=== PATIENT | male | born 1940 | race Caucasian/White ===

== ENCOUNTER 2017-09-03 15:49 | Inpatient (IN) | payer MEDICARE, OTHER ==
[2017-09-03] MEDS ORDERED: IPRATROPIUM-ALBUTEROL 3 ML NEB INHALATION PRN (19:20)
[2017-09-03] MEDS ORDERED: traMADol 50 MG TAB PO PRN (19:30)
[2017-09-03] MEDS ORDERED: DILTIAZEM CD 120 MG CAP.ER.24H PO SCH (20:00)
[2017-09-03] MEDS: IPRATROPIUM-ALBUTEROL 3 ML NEB INHALATION SCH (20:25)
[2017-09-03] MEDS: SYMBICORT 80-4.5 MCG INHALER INHALATION SCH (20:25)
[2017-09-03] MEDS: PIPERACILLIN-TAZOBACTAM 3.375 GM in DEXTROSE/WATER 1 50ML.BAG IVPB SCH (21:56)
[2017-09-03] MEDS: PROMACTA 75 MG PO SCH (21:57)
[2017-09-04] MEDS: PIPERACILLIN-TAZOBACTAM 3.375 GM in DEXTROSE/WATER 1 50ML.BAG IVPB SCH ×2 (04:15→11:57)
[2017-09-04] MEDS: SODIUM CHLORIDE 0.9% 1,000 ML IV SCH ×2 (04:16→07:34)
[2017-09-04 07:53] LABS: Calcium 9.1 mg/dL (8.4-10.2); Potassium 4.2 mmol/L (3.5-5.1)
[2017-09-04 07:57] LABS: Anisocytosis Slight; CH 29.9; CHCM 31.3; HCT 36.2 % (39.0-53.0); HDW 2.76; HGB 11.4 gm/dL (13.0-17.5); Hypochromasia Slight; Large Platelets Flag Slight; MCHC 31.4 g/dL (31.0-37.0); MCV 95.7 fL (80.0-100.0); Macrocytosis Slight; Mean Platelet Volume 10.2; RBC 3.78 m/uL (4.30-5.90); RDW 19.4 % (11.5-15.5); WBC 13.1 k/uL (3.8-10.6); WBC (Perox) 14.52
[2017-09-04 08:09] LABS: Add Differential Manual Differential
[2017-09-04 08:12] LABS: Large Platelets Present; Manual Review Performed; Nucleated Red Blood Cells 0 /100 WBC (0-0); Total Cells Counted 100
[2017-09-04] MEDS ORDERED: METOPROLOL SUCCINATE (ER) 50 MG TAB.ER.24H PO SCH (09:00)
[2017-09-04] MEDS ORDERED: PROMACTA 75 MG PO SCH (09:00)
[2017-09-04] MEDS ORDERED: TAMSULOSIN 0.4 MG CAP.ER.24H PO SCH (09:00)
[2017-09-04] MEDS: PROMACTA 75 MG PO SCH (09:01)
[2017-09-04 09:05] VITALS: BP 147/66; PULSE 54; RESP 16; TEMP 97.3
[2017-09-04] MEDS: IPRATROPIUM-ALBUTEROL 3 ML NEB INHALATION SCH ×3 (09:19→15:39)
[2017-09-04] MEDS: SYMBICORT 80-4.5 MCG INHALER INHALATION SCH (09:19)
[2017-09-04] MEDS ORDERED: ASPIRIN 81 MG PO SCH (10:30)
[2017-09-04] MEDS ORDERED: predniSONE 10 MG TAB PO SCH (10:30)
[2017-09-04] MEDS ORDERED: LORATADINE 10 MG TAB PO SCH (10:30)
[2017-09-04 11:19] VITALS: BMI 27.4
--- NOTE | 2017-09-04 11:20 | XR ---
EXAMINATION TYPE: XR chest 1V portable DATE OF EXAM: 09/04/2017 COMPARISON: 04/16/2015 INDICATION: Pneumonia or breath TECHNIQUE: Single frontal view of the chest is obtained. FINDINGS: The heart size is mildly prominent. There is some prominence of the superior mediastinum along the ri ght heart border. Consider additional workup with CT chest.. The pulmonary vasculature is normal. Vague opacities over the right lung base summation density. Mild infiltration be considered. Correlat e for atelectasis or pneumonia. Minimal right pleural effusion is not excluded. Old right rib fractures are evident. IMPRESSION: 1. Summation density versus mild infiltrate in the right mid lung. Correlate for pneumonia or atelect asis. 2. There is some prominence of mediastinum, follow-up chest CT for additional
--- NOTE | 2017-09-04 11:59 | P.GSCN ---
History of Present Illness Consult date: 09/04/17 History of present illness: This is a 77-year-old gentleman who was transferred to [facility] last night because of left-sided hydronephrosis, acute renal failure and flank pain. It was suspected that he had a ureteral stone however a computed tomography scan did not identify a stone but did identify the left- sided hydronephrosis and perinephric fluid. The creatinine 1.8. The patient does have a history of uric acid stones. He states that he passed a stone within the last couple days. He has had flank pain intermittently for the last couple days. The pain however subsided as he came down the [facility]. The patient is seen in the past for kidney stones. The patient did have blood in his urine. He is comfortable as we speak. The patient had a lot of irritative urinary symptoms during the abdominal pain. Once the common femoral and flank pain disappeared so did the irritative urinary symptoms. This is consistent with a stone in the intravesical tunnel that has passed. Review of Systems - Gastrointestinal Reports abdominal pain - Genitourinary Reports as per HPI 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 by crosscutter diverticulitis, ITP, ulcers in past,colitis,ddd,gout low back pain, kidney stones feb had taken out 2014 in [facility], [place] disease (liver count goes up and down) ( 03/31/15 fell broke ribs broke 2 toes and ended having pneumonia and was on life support in ICU) chest tube about 3 years ago for bilateral pneumonia, cataract in one eye "not sure which one" History of Any Multi-Drug Resistant Organisms: None Reported Past Surgical History: Back Surgery, Cholecystectomy, Heart Catheterization, Orthopedic Surgery Additional Past Surgical History / Comment(s): cardiac ablation, , heart catheterization 2011, cholecystectomy, cystoscopy with J stent placement.rotator cuff, neck surgery, lithotripsy,colonoscopy, Past Anesthesia/Blood Transfusion Reactions: No Reported Reaction Additional Past Anesthesia/Blood Transfusion Reaction / Comm: clausterphobic. pt stated has recieved platelets in past. Smoking Status: Former smoker - Past Family History Mother Family Medical History: CVA/TIA Father Family Medical History: Coronary Artery Disease (CAD), Myocardial Infarction ([place] ) Brother(s) Family Medical History: CVA/TIA Sister(s) Family Medical History: No Reported History Daughter(s) Family Medical History: No Reported History Son(s) Family Medical History: No Reported History Medications and Allergies Home Medications Medication Instructions Recorded Confirmed Type Digoxin [Lanoxin] 125 mcg PO DAILY 03/23/15 09/03/17 History Loratadine [Claritin] 10 mg PO DAILY 03/23/15 09/03/17 History Metoprolol Succinate [Toprol XL] 50 mg PO DAILY 03/23/15 09/03/17 History Fluticasone/Salmeterol [Advair 1 inhalation PO RT-BID 04/16/15 09/03/17 History 250-50 Diskus] Apriso 1.5 mg PO DAILY 09/03/17 09/03/17 History Aspirin EC [Ecotrin Low Dose] 81 mg PO DAILY 09/03/17 09/03/17 History Diltiazem Cd [Cardizem Cd] 120 mg PO DAILY@2000 09/03/17 09/03/17 History Eltrombopag Olamine [Promacta] 75 mg PO DAILY 09/03/17 09/03/17 History Ferrous Sulfate [Feosol] 325 mg PO DAILY@1300 09/03/17 09/03/17 History [place]-3 Fatty Acids [[place]-3] 2,000 mg PO W/SUPPER 09/03/17 09/03/17 History Tamsulosin HCl [Flomax] 0.4 mg PO DAILY 09/03/17 09/03/17 History Urocit-K 1,080 mg PO BID 09/03/17 09/03/17 History Zinc 50 mg PO DAILY 09/03/17 09/03/17 History predniSONE 10 mg PO DAILY 09/03/17 09/03/17 History Allergies Allergy/AdvReac Type Severity Reaction Status Date / Time Iodinated Contrast- Oral and Allergy Unknown Verified 09/03/17 18:51 IV Dye [Iodinated Contrast Media - IV Dye] hydromorphone HCl AdvReac Hallucinati Verified 09/03/17 18:51 [From Dilaudid] ons morphine AdvReac Hallucinati Verified 09/03/17 18:51 ons Surgical - Exam Vital Signs Temp Pulse Resp BP Pulse Ox 97.8 F 74 17 143/54 98 09/03/17 22:10 09/03/17 22:10 09/03/17 22:10 09/03/17 22:10 09/03/17 22:10 - General well developed, well nourished, no distress - Eyes PERRL - ENT no hearing loss - Neck trachea midline - Abdomen Abdomen: soft, non tender - Neurologic normal coordination, normal sensation - Musculoskeletal normal posture - Psychiatric oriented to time, oriented to person, oriented to place, speech is normal, memory intact Results - Labs 09/04/17 07:07 09/04/17 07:07 Abnormal Lab Results - Last 24 Hours (Table) 09/04/17 09/04/17 Range/Units 07:07 07:07 WBC 13.1 H (3.8-10.6) k/uL RBC 3.78 L (4.30-5.90) m/uL Hgb 11.4 L (13.0-17.5) gm/dL Hct 36.2 L (39.0-53.0) % RDW 19.4 H (11.5-15.5) % Plt Count 134 L (150-450) k/uL Neutrophils # (Manual) 8.52 H (1.3-7.7) k/uL Monocytes # (Manual) 3.41 H (0-1.0) k/uL Chloride 111 H (98-107) mmol/L BUN 23 H (9-20) mg/dL Creatinine 1.81 H (0.66-1.25) mg/dL Diabetes panel 09/04/17 Range/Units 07:07 Sodium 144 (137-145) mmol/L Potassium 4.2 (3.5-5.1) mmol/L Chloride 111 H (98-107) mmol/L Carbon Dioxide 26 (22-30) mmol/L BUN 23 H (9-20) mg/dL Creatinine 1.81 H (0.66-1.25) mg/dL Glucose 84 (74-99) mg/dL Calcium 9.1 (8.4-10.2) mg/dL Calcium panel 09/04/17 Range/Units 07:07 Calcium 9.1 (8.4-10.2) mg/dL Pituitary panel 09/04/17 Range/Units 07:07 Sodium 144 (137-145) mmol/L Potassium 4.2 (3.5-5.1) mmol/L Chloride 111 H (98-107) mmol/L Carbon Dioxide 26 (22-30) mmol/L BUN 23 H (9-20) mg/dL Creatinine 1.81 H (0.66-1.25) mg/dL Glucose 84 (74-99) mg/dL Calcium 9.1 (8.4-10.2) mg/dL Adrenal panel 09/04/17 Range/Units 07:07 Sodium 144 (137-145) mmol/L Potassium 4.2 (3.5-5.1) mmol/L Chloride 111 H (98-107) mmol/L Carbon Dioxide 26 (22-30) mmol/L BUN 23 H (9-20) mg/dL Creatinine 1.81 H (0.66-1.25) mg/dL Glucose 84 (74-99) mg/dL Calcium 9.1 (8.4-10.2) mg/dL Assessment and Plan Assessment: Impression: Left-sided hydroureteronephrosis. Acute renal failure due to the obstruction. Her sternal history of uric acid stones. Final Samina evaluated and cared for by crosscutter and [place]. Probable passage of left ureteral stone Recommendations: Given the fact that the patient has had a history of previous stones, he presented to the emergency room with severe flank and abdominal pain , hematuria and irritative urinary symptoms it is my impression that he passed a ureteral stone. A low the computed tomography scan did not identify the stone most likely he passed before the computed tomography scan was done. The perinephric edema is quite common with an obstruction and really carries no significance at this point in time. The creatinine 1.8 is just a sign evident obstruction and should resolve. Given that he feels perfectly well at this point in time I have no need to keep him in the hospital. He probably should have a follow-up urinalysis and creatinine and make sure the obstruction doesn' t persist. If the creatinine remain elevated then he probably need further evaluation by for other causes of obstruction however most likely this won't be the case. He has been instructed to contact Dr. Javed next week.
[2017-09-04] MEDS ORDERED: FERROUS SULFATE 325 MG TAB PO SCH (13:00)
--- NOTE | 2017-09-04 18:22 | HP ---
HISTORY AND PHYSICAL HISTORY AND PHYSICAL AND DISCHARGE SUMMARY: CHIEF COMPLAINT: Abdominal pain. HISTORY OF PRESENT ILLNESS: This 77-year-old gentleman with a past medical history of multiple medical problems including atrial ablation, COPD, GERD, history of DJD being followed by [facility] in the outpatient setting was admitted with complaints of abdominal pain, lower abdominal pain, referred from [facility]. The patient was found to have hydronephrosis. Patient also had renal failure. Patient was treated empirically with antibiotics. There is no history of fever, rigors. No headache , loss of consciousness or seizures. PAST MEDICAL HISTORY: Atrial fibrillation, history of COPD, GERD, history of DJD, history pneumonia. MEDICATIONS: Prior to admission include home medications: 1. Zinc 50 mg p.o. daily. 2. Sula-3 fatty acid 2000 daily. 3. Flomax 0.4 daily. 4. Iron sulfate 65 mg p.o. daily. 5. Ecotrin 81 mg. 6. 75 mg p.o. daily. 7. Cardizem CD 120 mg p.o. daily. 8. Prednisone 10 mg p.o. daily. 9. Urocit-K 1080 mg p.o. b.i.d. 10.Apriso 1.5 mg p.o. daily. 11.Toprol-XL 50 mg p.o. daily. 12.Claritin 10 mg p.o. daily. 13.Advair 250/50 1 puff b.i.d. 14.Lanoxin 120 mcg p.o. daily. 15.Augmentin 875 mg p.o. b.i.d. ALLERGIES: IODINATED CONTRAST, HYDROMORPHONE AND MORPHINE. FAMILY HISTORY: History of CVA, TIA in the family. SOCIAL HISTORY: No history of current smoking or alcohol intake. Previous history of smoker. REVIEW OF SYSTEMS: ENT: No diminished hearing or vision. CARDIOVASCULAR: No angina. RESPIRATORY: No cough. GI: As mentioned : As mentioned NERVOUS SYSTEM: No asthma or hayfever. ALLERGY/IMMUNOLOGY: No asthma or hayfever. MUSCULOSKELETAL: As mentioned. HEMATOLOGY: No history of anemia. ENDOCRINE: No history of diabetes or hypothyroidism. CONSTITUTIONAL: As mentioned earlier. DERMATOLOGY: Negative. RHEUMATOLOGY: Negative. PSYCHIATRY: As mentioned earlier. PHYSICAL EXAM: Patient is alert, oriented x3. The pulse is 54, blood pressure 147/66, respirations 16, temperature 97.2, pulse ox 98% on room air. HEENT: Conjunctivae normal. NECK: No jugular venous distention. CARDIOVASCULAR: S1, S2 muffled. RESPIRATORY: Breath sounds diminished in the bases. A few scattered rhonchi. No crackles. ABDOMEN: Soft. Mild diffuse discomfort on palpation. No guarding. No rigidity. No mass palpable. LEGS: No edema, no swelling. NERVOUS SYSTEM: Higher functions as mentioned earlier. Moves all four limbs. No focal deficits. LYMPHATICS: No lymphadenopathy in the neck, axillae, or groin. SKIN: No ulcer, rash, bleeding. LAB: WBC 13.1, hemoglobin 11.4. Creatinine is 1.81. ASSESSMENT: 1. Acute left side abdominal pain, possible hydronephrosis secondary to ureterolithiasis and kidney stone. 2. Increased WBC. 3. Possible acute urinary tract infection. 4. Increased creatinine with chronic kidney disease stage 3. 5. Chronic obstructive pulmonary disease. 6. Gastroesophageal reflux disease. 7. Degenerative joint disease. 8. History pneumonia. 9. History of ITP. 10.Splenomegaly. 11.History of gout. RECOMMENDATION AND DISCUSSION: This 77-year-old gentleman who presented with multiple complex medical issues, will monitor the patient closely continue the current medications, symptomatic treatment. Neurology has also seen the patient, recommended the patient to be discharged and follow up in the outpatient setting. Otherwise I would recommend resume the home medication as well as Augmentin 875 mg p.o. b.i.d. for 4 days and continue follow up with multiple consultants. Otherwise repeat labs with the primary physician. Discussed with the patient who understands. MMODL / IJN: [id number] / LIBRA
== END 2017-09-04 15:35 | disposition home or self-care (01) | DRG 694 ==
LOC: 5MS5E 17:59
PROVIDERS: ADMIT Internal Medicine; ATTEND Internal Medicine
DX: N13.2 Hydronephrosis with renal and ureteral calculous obstruction (principal); D69.3 Immune thrombocytopenic purpura; N17.9 Acute kidney failure, unspecified; I48.91 Unspecified atrial fibrillation; J44.9 Chronic obstructive pulmonary disease, unspecified; N18.3 Chronic kidney disease, stage 3 (moderate); R16.1 Splenomegaly, not elsewhere classified; N39.0 Urinary tract infection, site not specified; G47.30 Sleep apnea, unspecified; K21.9 Gastro-esophageal reflux disease without esophagitis; M10.9 Gout, unspecified; M19.90 Unspecified osteoarthritis, unspecified site; E80.4 Gilbert syndrome; H26.9 Unspecified cataract; R31.9 Hematuria, unspecified; K57.90 Diverticulosis of intestine, part unspecified, without perforation or abscess without bleeding; D72.829 Elevated white blood cell count, unspecified; Z87.442 Personal history of urinary calculi; Z87.891 Personal history of nicotine dependence; Z79.82 Long term (current) use of aspirin; Z79.52 Long term (current) use of systemic steroids; Z79.899 Other long term (current) drug therapy; Z88.5 Allergy status to narcotic agent; Z91.041 Radiographic dye allergy status; Z82.49 Family history of ischemic heart disease and other diseases of the circulatory system
CPT/HCPCS: 71010; 80048; 80162; 85025

== ENCOUNTER 2018-06-14 13:39 | Inpatient (IN) | payer MEDICARE, OTHER ==
[2018-06-14 14:22] LABS: Appearance,Urine Cloudy (Clear); Bilirubin,Urine Negative (Negative); Blood,Urine Negative (Negative); Color,Urine Light Yellow; Glucose,Urine (UA) Negative (Negative); Ketones,Urine Negative (Negative); Leukocyte Esterase,Urine Negative (Negative); Mucus,Urine Rare /hpf; Nitrite,Urine Negative (Negative); Protein,Urine Negative (Negative); Specific Gravity,Urine 1.006 (1.001-1.035); Urobilinogen,Urine <2.0 mg/dL (<2.0); WBC,Urine 3 /hpf (0-5)
[2018-06-14 14:26] LABS: Albumin 3.4 g/dL (3.5-5.0); Calcium 8.6 mg/dL (8.4-10.2); INR 1.3 (<1.2); Magnesium 1.9 mg/dL (1.6-2.3); Partial Thromboplastin Time 23.8 sec (22.0-30.0); Potassium 5.6 mmol/L (3.5-5.1); Prothrombin Time 12.2 sec (9.0-12.0); Total Bilirubin 2.2 mg/dL (0.2-1.3); Total Protein 6.8 g/dL (6.3-8.2)
[2018-06-14 14:32] LABS: Anisocytosis Moderate; HCT 27.1 % (39.0-53.0); HGB 8.7 gm/dL (13.0-17.5); Hypochromasia Slight; MCHC 32.2 g/dL (31.0-37.0); MCV 90.3 fL (80.0-100.0); Mean Platelet Volume 15.2; RDW 21.1 % (11.5-15.5); WBC 7.7 k/uL (3.8-10.6)
[2018-06-14 15:04] LABS: Band Neutrophils % 2 %; Large Platelets Present; Lymphocytes # (M) 1.69 k/uL (1.0-4.8); Monocytes # (M) 0.54 k/uL (0-1.0); Neutrophils % (M) 69 %; Nucleated Red Blood Cells 0 /100 WBC (0-0); Platelet Count 52 k/uL (150-450); Poikilocytosis (M) Present; Total Cells Counted 100
[2018-06-14 15:07] LABS: Creatine Kinase <20 U/L (55-170)
--- NOTE | 2018-06-14 15:12 | ED ---
General Adult HPI - General Chief complaint: Arrhythmia/Palpitations Stated complaint: abn heart rate Time Seen by Provider: 06/14/18 13:43 Source: patient, EMS, RN notes reviewed Mode of arrival: EMS Limitations: no limitations - History of Present Illness Initial comments: 78-year-old male transferred with multiple medical problems. Patient has history of A. fib, he was found to be in A. fib with RVR, he had recent hospitalization with pneumonia and was transferred with some residual bilateral infiltrate. Patient was found on computed tomography scan to have an obstructing right renal calculus. This was the patient's initial complaint for which he was seeking medical advice at outside hospital. No fever or chills. No abdominal pain. He is pain-free at the time my evaluation. No chest pain. No dyspnea. No flank pain. - Related Data Home Medications Medication Instructions Recorded Confirmed Loratadine [Claritin] 10 mg PO DAILY 03/23/15 06/14/18 Metoprolol Succinate [Toprol XL] 50 mg PO DAILY 03/23/15 06/14/18 Fluticasone/Salmeterol [Advair 1 puff INHALATION RT-BID 04/16/15 06/14/18 250-50 Diskus] Aspirin EC [Ecotrin Low Dose] 81 mg PO DAILY 09/03/17 06/14/18 Eltrombopag Olamine [Promacta] 75 mg PO DAILY 09/03/17 06/14/18 Tamsulosin HCl [Flomax] 0.4 mg PO DAILY 09/03/17 06/14/18 Apriso 375 Mg 24hr Cap 1,500 mg PO HS 06/14/18 06/14/18 Bidil 20-37.5mg 1 tab PO TID 06/14/18 06/14/18 Furosemide [Lasix] 20 mg PO DAILY 06/14/18 06/14/18 Ipratropium-Albuterol Nebulize 3 ml INHALATION RT-QID 06/14/18 06/14/18 [Duoneb 0.5 mg-3 mg/3 ml Soln] Multivitamins, Thera [Multivitamin 1 tab PO DAILY 06/14/18 06/14/18 (formulary)] [place]-3 Acid Ethyl Esters [Lovaza] 1 gm PO DAILY 06/14/18 06/14/18 Pantoprazole Sodium [Protonix] 40 mg PO DAILY 06/14/18 06/14/18 Potassium Chloride ER [K-Dur 20] 20 meq PO DAILY 06/14/18 06/14/18 Allergies Allergy/AdvReac Type Severity Reaction Status Date / Time acetaminophen Allergy Unknown Verified 06/14/18 14:44 [From Darvocet-N] codeine Allergy Unknown Verified 06/14/18 14:44 ibuprofen [From Motrin] Allergy Unknown Verified 06/14/18 14:44 Iodinated Contrast- Oral and Allergy Unknown Verified 06/14/18 14:44 IV Dye [Iodinated Contrast Media - IV Dye] propoxyphene Allergy Unknown Verified 06/14/18 14:44 [From Darvocet-N] hydromorphone HCl AdvReac Hallucinati Verified 06/14/18 14:44 [From Dilaudid] ons morphine AdvReac Hallucinati Verified 06/14/18 14:44 ons Review of Systems ROS Statement: Those systems with pertinent positive or pertinent negative responses have been documented in the HPI. ROS Other: All systems not noted in ROS Statement are negative. 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 by warranty clerk diverticulitis, ITP, ulcers in past,colitis,ddd,gout low back pain, kidney stones feb had taken out 2014 in [facility], [place] (liver count goes up and down) ( 03/31/15 fell broke ribs broke 2 toes and ended having pneumonia and was on life support in ICU) chest tube about 3 years ago for bilateral pneumonia, cataract in one eye "not sure which one" History of Any Multi-Drug Resistant Organisms: None Reported Past Surgical History: Back Surgery, Cholecystectomy, Heart Catheterization, Orthopedic Surgery Additional Past Surgical History / Comment(s): cardiac ablation, , heart catheterization 2011, cholecystectomy, cystoscopy with J stent placement.rotator cuff, neck surgery, lithotripsy,colonoscopy, Past Anesthesia/Blood Transfusion Reactions: No Reported Reaction Additional Past Anesthesia/Blood Transfusion Reaction / Comment(s): clausterphobic. pt stated has recieved platelets in past. Past Psychological History: Anxiety Smoking Status: Former smoker Past Alcohol Use History: None Reported Past Drug Use History: None Reported - Past Family History Mother Family Medical History: CVA/TIA Father Family Medical History: Coronary Artery Disease (CAD), Myocardial Infarction ([place] ) Brother(s) Family Medical History: CVA/TIA Sister(s) Family Medical History: No Reported History Daughter(s) Family Medical History: No Reported History Son(s) Family Medical History: No Reported History General Exam Limitations: no limitations General appearance: alert, in no apparent distress Head exam: Present: atraumatic, normocephalic Eye exam: Present: normal appearance, PERRL ENT exam: Present: normal exam Neck exam: Present: normal inspection. Absent: tenderness, meningismus Respiratory exam: Present: normal lung sounds bilaterally. Absent: respiratory distress Cardiovascular Exam: Present: regular rate, irregular rhythm GI/Abdominal exam: Present: soft. Absent: distended, tenderness, guarding Extremities exam: Present: normal inspection, pedal edema. Absent: normal capillary refill Back exam: Absent: CVA tenderness (R), CVA tenderness (L), muscle spasm Neurological exam: Present: alert, oriented X3, CN II-XII intact. Absent: motor sensory deficit Psychiatric exam: Present: normal affect, normal mood Skin exam: Present: warm, dry, intact. Absent: cyanosis, diaphoretic Course Vital Signs 06/14/18 06/14/18 13:51 15:11 Temperature 97.6 F Pulse Rate 117 H 91 Respiratory 18 18 Rate Blood Pressure 101/64 98/53 O2 Sat by Pulse 97 96 Oximetry - Reevaluation(s) Reevaluation #1: 06/14/18 15:19 With regards to patient's obstructing right renal calculus, this finding is discussed with urology on-call, Dr. Dumont. EKG Findings - EKG Comments: EKG Findings:: EKG: Atrial fibrillation, left bundle branch block, rate of 98, QRS duration 132, QTC 480, no ST segment elevation, no old for comparison. Medical Decision Making - Medical Decision Making 78-year-old male transferred for further evaluation treatment, transfer reasons include A. fib with RVR, concern for bilateral infiltrate on computed tomography scan as well as obstructing right renal calculus and new acute on chronic renal failure. Patient's laboratory studies are repeated, he has normal white blood cell count , hemoglobin is 8.7. Creatinine 2.69 from baseline of 1.8. Mild hyperkalemia 5.6. Troponin is negative. CT reviewed from outside hospital does show 1 cm calculus at the right UPJ, with hydronephrosis. Patient does have bilateral pleural effusion and infiltrate on the CT as well. Denies any cough or significant dyspnea. He will be admitted with cardiology and urology on consult. - Lab Data Result diagrams: 06/14/18 14:06 06/14/18 14:06 Lab Results 06/14/18 06/14/18 06/14/18 Range/Units 14:06 14:06 14:06 WBC 7.7 (3.8-10.6) k/uL RBC 3.00 L (4.30-5.90) m/uL Hgb 8.7 L (13.0-17.5) gm/dL Hct 27.1 L (39.0-53.0) % MCV 90.3 (80.0-100.0) fL MCH 29.0 (25.0-35.0) pg MCHC 32.2 (31.0-37.0) g/dL RDW 21.1 H (11.5-15.5) % Plt Count 52 L (150-450) k/uL Neutrophils % (Manual) 69 % Band Neutrophils % 2 % Lymphocytes % (Manual) 22 % Monocytes % (Manual) 7 % Neutrophils # (Manual) 5.40 (1.3-7.7) k/uL Lymphocytes # (Manual) 1.69 (1.0-4.8) k/uL Monocytes # (Manual) 0.54 (0-1.0) k/uL Nucleated RBCs 0 (0-0) /100 WBC Manual Slide Review Performed Large Platelets Present Hypochromasia Slight Poikilocytosis (manual Present Anisocytosis Moderate PT (9.0-12.0) sec INR (<1.2) APTT (22.0-30.0) sec Sodium 137 (137-145) mmol/L Potassium 5.6 H (3.5-5.1) mmol/L Chloride 106 (98-107) mmol/L Carbon Dioxide 19 L (22-30) mmol/L Anion Gap 12 mmol/L BUN 36 H (9-20) mg/dL Creatinine 2.69 H (0.66-1.25) mg/dL Est GFR (CKD-EPI)AfAm 25 (>60 ml/min/1.73 sqM) Est GFR (CKD-EPI)NonAf 22 (>60 ml/min/1.73 sqM) Glucose 86 (74-99) mg/dL Calcium 8.6 (8.4-10.2) mg/dL Magnesium 1.9 (1.6-2.3) mg/dL Total Bilirubin 2.2 H (0.2-1.3) mg/dL AST 16 L (17-59) U/L ALT 29 (21-72) U/L Alkaline Phosphatase 67 (38-126) U/L Total Creatine Kinase <20 L (55-170) U/L CK-MB (CK-2) 0.5 (0.0-2.4) ng/mL CK-MB (CK-2) Rel Index Troponin I <0.012 (0.000-0.034) ng/mL Total Protein 6.8 (6.3-8.2) g/dL Albumin 3.4 L (3.5-5.0) g/dL Urine Color Urine Appearance (Clear) Urine pH (5.0-8.0) Ur Specific [place] (1.001-1.035) Urine Protein (Negative) Urine Glucose (UA) (Negative) Urine Ketones (Negative) Urine Blood (Negative) Urine Nitrite (Negative) Urine Bilirubin (Negative) Urine Urobilinogen (<2.0) mg/dL Ur Leukocyte Esterase (Negative) Urine WBC (0-5) /hpf Urine Mucus (None) /hpf 06/14/18 06/14/18 Range/Units 14:06 14:06 WBC (3.8-10.6) k/uL RBC (4.30-5.90) m/uL Hgb (13.0-17.5) gm/dL Hct (39.0-53.0) % MCV (80.0-100.0) fL MCH (25.0-35.0) pg MCHC (31.0-37.0) g/dL RDW (11.5-15.5) % Plt Count (150-450) k/uL Neutrophils % (Manual) % Band Neutrophils % % Lymphocytes % (Manual) % Monocytes % (Manual) % Neutrophils # (Manual) (1.3-7.7) k/uL Lymphocytes # (Manual) (1.0-4.8) k/uL Monocytes # (Manual) (0-1.0) k/uL Nucleated RBCs (0-0) /100 WBC Manual Slide Review Large Platelets Hypochromasia Poikilocytosis (manual Anisocytosis PT 12.2 H (9.0-12.0) sec INR 1.3 H (<1.2) APTT 23.8 (22.0-30.0) sec Sodium (137-145) mmol/L Potassium (3.5-5.1) mmol/L Chloride (98-107) mmol/L Carbon Dioxide (22-30) mmol/L Anion Gap mmol/L BUN (9-20) mg/dL Creatinine (0.66-1.25) mg/dL Est GFR (CKD-EPI)AfAm (>60 ml/min/1.73 sqM) Est GFR (CKD-EPI)NonAf (>60 ml/min/1.73 sqM) Glucose (74-99) mg/dL Calcium (8.4-10.2) mg/dL Magnesium (1.6-2.3) mg/dL Total Bilirubin (0.2-1.3) mg/dL AST (17-59) U/L ALT (21-72) U/L Alkaline Phosphatase (38-126) U/L Total Creatine Kinase (55-170) U/L CK-MB (CK-2) (0.0-2.4) ng/mL CK-MB (CK-2) Rel Index Troponin I (0.000-0.034) ng/mL Total Protein (6.3-8.2) g/dL Albumin (3.5-5.0) g/dL Urine Color Light Yellow Urine Appearance Cloudy (Clear) Urine pH 5.0 (5.0-8.0) Ur Specific [place] 1.006 (1.001-1.035) Urine Protein Negative (Negative) Urine Glucose (UA) Negative (Negative) Urine Ketones Negative (Negative) Urine Blood Negative (Negative) Urine Nitrite Negative (Negative) Urine Bilirubin Negative (Negative) Urine Urobilinogen <2.0 (<2.0) mg/dL Ur Leukocyte Esterase Negative (Negative) Urine WBC 3 (0-5) /hpf Urine Mucus Rare H (None) /hpf Disposition Clinical Impression: Atrial fibrillation, Acute on chronic kidney failure, Renal calculus Disposition: ADMITTED IP TO THIS HOSP Condition: Stable Is patient prescribed a controlled substance at d/c from ED?: No Referrals: Niels Hackett MD [Primary Care Provider] - 1-2 days Decision to Admit Reason: Admit from EC Decision Date: 06/14/18 Decision Time: 15:25
[2018-06-14 15:21] LABS: Creatine Kinase MB 0.5 ng/mL (0.0-2.4); Troponin I <0.012 ng/mL (0.000-0.034)
[2018-06-14] MEDS ORDERED: NALOXONE 0.4 MG/ML 1 ML VIAL IV PRN (15:26)
[2018-06-14] MEDS ORDERED: HYDROmorphone 1 MG/ML 1 ML SYRINGE IVP PRN (15:26)
--- NOTE | 2018-06-14 16:52 | XR ---
EXAMINATION TYPE: XR chest 1V portable DATE OF EXAM: 06/14/2018 COMPARISON: 09/04/2017 INDICATION: CHF TECHNIQUE: Single frontal view of the chest is obtained. FINDINGS: The heart size is enlarged. The pulmonary vasculature is normal. There is a rounded 4.7 cm mass in the right midlung. This could be fluid within the minor fissure. Un derlying mass should be considered. Suspicious consolidations are not identified. Small pleural effu sions have developed. IMPRESSION: 1. 4.7 cm mass suspected within the right midlung. Fluid could be within the differential. CT of the chest with contrast recommended for additional evaluation. 2. Small bilateral pleural effusions.
[2018-06-14] MEDS ORDERED: SODIUM POLYSTYRENE SULFONATE 15 GM/60 ML BOTTLE PO ONE (17:00)
[2018-06-14] MEDS: hydrALAZINE HCL 25 MG TAB PO SCH ×2 (17:11→23:50)
[2018-06-14] MEDS: ISOSORBIDE DINITRATE 20 MG TAB PO SCH ×2 (17:12→23:50)
--- NOTE | 2018-06-14 17:13 | HP ---
HISTORY AND PHYSICAL DATE OF SERVICE: 06/14/2018. CHIEF COMPLAINTS: Palpitations and cardiac rhythm. HISTORY OF PRESENT ILLNESS: This 78-year-old gentleman with a past history of atrial ablation, COPD, GERD, history pneumonia, history of sleep apnea, history of ITP with splenomegaly, being followed by Dr. Hackett in the outpatient setting, was recently admitted to [facility] for several days with pneumonia. Currently the patient is complaining of shortness of breath. The patient came to [facility] and was admitted for further evaluation and treatment. The patient was found to have atrial fibrillation with fast ventricular rate. The patient also had bilateral infiltrates on x-ray also. There is no history of any fevers or rigors. No headache, loss of consciousness, seizures. The patient also had right-sided abdominal pain and 1 cm renal stone suspected elsewhere. PAST MEDICAL HISTORY: History of atrial ablation, COPD, GERD, liver disease, DJD, history of pneumonia , sleep apnea, history of ITP with splenomegaly. MEDICATIONS: Prior home medications are: 1. Lovaza 1 mg p.o. daily. 2. DuoNeb q.i.d. 3. Flomax 0.4 daily. 4. Protonix 40 mg p.o. daily. 5. Promacta 70 mg p.o. daily. 6. K-Dur 20 mEq b.i.d. 7. Multivitamins 1 p.o. daily. 8. Toprol-XL 50 mg p.o. daily. 11.Claritin 10 mg. 12.Lasix 20 mg. 13.Advair 250 one puff b.i.d. 14.Ecotrin 81 mg p.o. daily. ALLERGIES: TYLENOL, CODEINE, IBUPROFEN, IODINATED CONTRAST DYE, PROPOXYPHENE, HYDROMORPHONE , MORPHINE. FAMILY HISTORY: History of CVA and TIA. SOCIAL HISTORY: No history of smoking. No history of alcohol intake. REVIEW OF SYSTEMS: ENT: Diminished vision and hearing. CARDIOVASCULAR: As mentioned. RESPIRATORY: As mentioned. GI: No nausea or vomiting. : no dysuria, no hematuria. NERVOUS SYSTEMS: No numbness or weakness. ALLERGY: None. MUSCULOSKELETAL: As mentioned earlier. HEMATOLOGY/ONCOLOGY: As mentioned. ENDOCRINE: No history of diabetes or hypothyroidism. CONSTITUTIONAL: Negative. DERMATOLOGY: Negative. RHEUMATOLOGY: Negative. PSYCH: As mentioned earlier. PHYSICAL EXAMINATION: Pulse 91, blood pressure 98/50, respirations 18, temp 97.6, pulse ox 96 percent on 2 L. HEENT: Conjunctivae normal. Oral mucosa moist. NECK: No jugular venous distention. No carotid bruit. No lymph node enlargement. CARDIOVASCULAR: S1 and S2 regular, tachycardia. Ejection systolic murmur heard at the bases. LUNGS: Few scattered rhonchi and crackles. Expiratory wheezing also. ABDOMEN: Soft, obese, nontender. No mass. LEGS: Minimal edema. NERVOUS SYSTEM: Higher functions as mentioned earlier. Moves all four limbs. No focal motor deficits. LYMPHATICS: None. SKIN: No rash. LAB STUDIES: WBC 7.2, hemoglobin is 8.7. INR 1.2. Sodium 137, potassium 5.2. Creatinine is 2.69. ASSESSMENT: 1. Atrial fibrillation with fast ventricular rate. 2. Bibasilar infiltrate and bilateral pneumonia. 3. Acute renal failure, possibly prerenal failure. 4. Atrial fibrillation. 5. History of chronic obstructive pulmonary disease. 6. Gastroesophageal reflux disease. 7. History of chronic liver disease. 8. History of degenerative joint disease. 9. History of renal disease. 10.History of sleep apnea. 11.History ITP with splenomegaly. 12.History of colitis in the past. 13.History of renal stones. 14.History of back surgery and degenerative joint disease. 15.History of anxiety history. 16.History of nicotine dependence. 17.FULL CODE. RECOMMENDATIONS: This 78-year-old gentleman who presented with multiple complex medical issues, we will monitor the patient closely, continue the current treatment. We will optimize bronchodilators. Cardiology and pulmonology consultations. Urology will also be consulted. Resume the rest of the medications. Guarded prognosis because of multiple complex medical issues. Further recommendations to follow. Gently hydrate the patient and monitor the creatinine closely. Also avoid nephrotoxic medication as well. Further recommendations to follow. Discussed with family at length. Also recommend PT/OT evaluation also and oncology social work to evaluate the home situation as well. MMODL / IJN: [id number] / MTDD
[2018-06-14] MEDS: SODIUM CHLORIDE 0.9% 1,000 ML IV SCH (17:49)
--- NOTE | 2018-06-14 18:07 | CT ---
EXAMINATION TYPE: CT chest wo con DATE OF EXAM: 06/14/2018 COMPARISON: None HISTORY: Abnormal cxr. Shortness of breath. CT DLP: 531 mGycm. Automated Exposure Control for Dose Reduction was Utilized. TECHNIQUE: CT scan of the thorax is performed without IV contrast. FINDINGS: There are bilateral [id number] pleural effusions. Heart is enlarged. There is infiltrate and at electasis at the lung bases. There are multiple enlarged mediastinal lymph nodes that measure up to 2 cm. There is atherosclerotic vascular calcification. There is no evidence of thoracic aortic aneurys m. There is hypertrophic spurring in the thoracic spine. There are numerous thoracic compression frac tures. There is multilevel thoracic and lumbar vertebroplasty. IMPRESSION: Pleural effusions with basilar pulmonary infiltrates and atelectasis. No evidence of a pu lmonary mass. There is loculated fluid in the right minor fissure that accounts for density in the ri ght midlung on the chest x-ray today. Mediastinal adenopathy. Cardiomegaly. The upper abdomen images show splenomegaly. Spleen measures 21 cm and possibility of lymphoma should be considered.
[2018-06-14] MEDS: MELATONIN 3 MG TABLET PO SCH (20:02)
[2018-06-14] MEDS: HEPARIN SODIUM,PORCINE 5,000 UNIT/ML 1 ML VIAL SQ SCH (20:03)
[2018-06-14] MEDS: BALSALAZIDE DISODIUM 750 MG CAPSULE PO SCH (20:04)
[2018-06-14] MEDS: IPRATROPIUM-ALBUTEROL 3 ML NEB INHALATION SCH (20:44)
[2018-06-14] MEDS: SYMBICORT 80-4.5 MCG INHALER INHALATION SCH (20:44)
[2018-06-15] MEDS: PANTOPRAZOLE 40 MG TABLET PO SCH (06:12)
[2018-06-15] MEDS: SODIUM CHLORIDE 0.9% 1,000 ML IV SCH ×2 (06:13→20:56)
[2018-06-15 06:21] LABS: Anisocytosis Moderate; HCT 24.3 % (39.0-53.0); HGB 7.9 gm/dL (13.0-17.5); Hypochromasia Moderate; MCHC 32.3 g/dL (31.0-37.0); MCV 92.7 fL (80.0-100.0); Macrocytosis Slight; Mean Platelet Volume 15.4; RBC 2.62 m/uL (4.30-5.90); RDW 20.7 % (11.5-15.5); WBC 7.1 k/uL (3.8-10.6)
[2018-06-15 06:27] LABS: Calcium 8.3 mg/dL (8.4-10.2); Potassium 5.4 mmol/L (3.5-5.1)
[2018-06-15 06:48] LABS: Platelet Count 46 k/uL (150-450)
--- NOTE | 2018-06-15 07:14 | P.GSCN ---
History of Present Illness Consult date: 06/15/18 History of present illness: 78 yo male in [facility] because of afib. He originally went to [facility] with flank pain . He has a history of stones and thought he had a stone AN apparent ct scan ther showed a right 1 cm upj stone He is not symptomatic at this time His cr is 2.6 where baseline is 1.8 He is not infected He is on a baby asa Review of Systems - Cardiovascular Reports irregular heart beat - Genitourinary Reports as per HPI Past Medical History Past Medical History: Atrial Fibrillation, Blood Disorder, Heart Failure, COPD, GERD/Reflux, Liver Disease, Osteoarthritis (OA), Pneumonia, Renal Disease, Sleep Apnea/CPAP/BIPAP Additional Past Medical History / Comment(s): idiopathic thrombocytepenia w/ splenomegaly,low plaelets monitored by outside food server diverticulitis, ITP, ulcers in past,colitis,ddd,gout low back pain, kidney stones feb had taken out 2014 in [facility], emden disease (liver count goes up and down) ( 03/31/15 fell broke ribs broke 2 toes and ended having pneumonia and was on life support in ICU) chest tube about 3 years ago for bilateral pneumonia, cataract in one eye "not sure which one" History of Any Multi-Drug Resistant Organisms: None Reported Past Surgical History: Back Surgery, Cholecystectomy, Heart Catheterization, Orthopedic Surgery Additional Past Surgical History / Comment(s): cardiac ablation, , heart catheterization 2011, cholecystectomy, cystoscopy with J stent placement.rotator cuff, neck surgery, lithotripsy,colonoscopy,jim kidney stents. Past Anesthesia/Blood Transfusion Reactions: No Reported Reaction Additional Past Anesthesia/Blood Transfusion Reaction / Comm: clausterphobic. pt stated has recieved platelets in past. Past Psychological History: Anxiety Additional Psychological History / Comment(s): pt lives with in condo-has 1 step. pt uses a cane when out walking,besides cane has a cpap machine.. no home care services. Smoking Status: Former smoker Past Alcohol Use History: None Reported Additional Past Alcohol Use History / Comment(s): started smoking at age 17(1956 ) and quit 2011. smoked 1 ppd. past occ alcohol none now. denies any past or current drug use. Past Drug Use History: None Reported - Past Family History Mother Family Medical History: CVA/TIA Father Family Medical History: Coronary Artery Disease (CAD), Myocardial Infarction (PA ) Brother(s) Family Medical History: CVA/TIA Sister(s) Family Medical History: No Reported History Daughter(s) Family Medical History: No Reported History Son(s) Family Medical History: No Reported History Medications and Allergies Home Medications Medication Instructions Recorded Confirmed Type Loratadine [Claritin] 10 mg PO DAILY 03/23/15 06/14/18 History Metoprolol Succinate [Toprol XL] 50 mg PO DAILY 03/23/15 06/14/18 History Fluticasone/Salmeterol [Advair 1 puff INHALATION RT-BID 04/16/15 06/14/18 History 250-50 Diskus] Aspirin EC [Ecotrin Low Dose] 81 mg PO DAILY 09/03/17 06/14/18 History Eltrombopag Olamine [Promacta] 75 mg PO DAILY 09/03/17 06/14/18 History Tamsulosin HCl [Flomax] 0.4 mg PO DAILY 09/03/17 06/14/18 History Apriso 375 Mg 24hr Cap 1,500 mg PO HS 06/14/18 06/14/18 History Bidil 20-37.5mg 1 tab PO TID 06/14/18 06/14/18 History Furosemide [Lasix] 20 mg PO DAILY 06/14/18 06/14/18 History Ipratropium-Albuterol Nebulize 3 ml INHALATION RT-QID 06/14/18 06/14/18 History [Duoneb 0.5 mg-3 mg/3 ml Soln] Multivitamins, Thera [Multivitamin 1 tab PO DAILY 06/14/18 06/14/18 History (formulary)] Bunn-3 Acid Ethyl Esters [Lovaza] 1 gm PO DAILY 06/14/18 06/14/18 History Pantoprazole Sodium [Protonix] 40 mg PO DAILY 06/14/18 06/14/18 History Potassium Chloride ER [K-Dur 20] 20 meq PO DAILY 06/14/18 06/14/18 History Allergies Allergy/AdvReac Type Severity Reaction Status Date / Time acetaminophen Allergy Unknown Verified 06/14/18 14:44 [From Darvocet-N] codeine Allergy Unknown Verified 06/14/18 14:44 ibuprofen [From Motrin] Allergy Unknown Verified 06/14/18 14:44 Iodinated Contrast- Oral and Allergy Unknown Verified 06/14/18 14:44 IV Dye [Iodinated Contrast Media - IV Dye] propoxyphene Allergy Unknown Verified 06/14/18 14:44 [From Darvocet-N] hydromorphone HCl AdvReac Hallucinati Verified 06/14/18 14:44 [From Dilaudid] ons morphine AdvReac Hallucinati Verified 06/14/18 14:44 ons Surgical - Exam Vital Signs Temp Pulse Resp BP Pulse Ox 97.6 F 117 H 18 101/64 97 06/14/18 13:51 06/14/18 13:51 06/14/18 13:51 06/14/18 13:51 06/14/18 13:51 - General well developed, well nourished, no distress - Eyes PERRL - ENT no hearing loss - Neck trachea midline - Respiratory normal expansion, normal respiratory effort - Cardiovascular Rhythm: irregularly irregular - Abdomen Abdomen: soft, non tender - Genitourinary normal penis with no external lesions, testicles present - Integumentary no rash, no growths - Neurologic normal coordination, normal sensation - Musculoskeletal normal posture - Psychiatric oriented to time, oriented to person, oriented to place, speech is normal, memory intact Results - Labs 06/15/18 05:47 06/15/18 05:47 Abnormal Lab Results - Last 24 Hours (Table) 06/14/18 06/14/18 06/14/18 Range/Units 14:06 14:06 14:06 RBC 3.00 L (4.30-5.90) m/uL Hgb 8.7 L (13.0-17.5) gm/dL Hct 27.1 L (39.0-53.0) % RDW 21.1 H (11.5-15.5) % Plt Count 52 L (150-450) k/uL PT (9.0-12.0) sec INR (<1.2) Potassium 5.6 H (3.5-5.1) mmol/L Chloride (98-107) mmol/L Carbon Dioxide 19 L (22-30) mmol/L BUN 36 H (9-20) mg/dL Creatinine 2.69 H (0.66-1.25) mg/dL Calcium (8.4-10.2) mg/dL Total Bilirubin 2.2 H (0.2-1.3) mg/dL AST 16 L (17-59) U/L Total Creatine Kinase <20 L (55-170) U/L Albumin 3.4 L (3.5-5.0) g/dL Urine Mucus (None) /hpf 06/14/18 06/14/18 06/15/18 Range/Units 14:06 14:06 05:47 RBC 2.62 L (4.30-5.90) m/uL Hgb 7.9 L (13.0-17.5) gm/dL Hct 24.3 L (39.0-53.0) % RDW 20.7 H (11.5-15.5) % Plt Count 46 L* (150-450) k/uL PT 12.2 H (9.0-12.0) sec INR 1.3 H (<1.2) Potassium (3.5-5.1) mmol/L Chloride (98-107) mmol/L Carbon Dioxide (22-30) mmol/L BUN (9-20) mg/dL Creatinine (0.66-1.25) mg/dL Calcium (8.4-10.2) mg/dL Total Bilirubin (0.2-1.3) mg/dL AST (17-59) U/L Total Creatine Kinase (55-170) U/L Albumin (3.5-5.0) g/dL Urine Mucus Rare H (None) /hpf 06/15/18 Range/Units 05:47 RBC (4.30-5.90) m/uL Hgb (13.0-17.5) gm/dL Hct (39.0-53.0) % RDW (11.5-15.5) % Plt Count (150-450) k/uL PT (9.0-12.0) sec INR (<1.2) Potassium 5.4 H (3.5-5.1) mmol/L Chloride 108 H (98-107) mmol/L Carbon Dioxide 18 L (22-30) mmol/L BUN 38 H (9-20) mg/dL Creatinine 2.90 H (0.66-1.25) mg/dL Calcium 8.3 L (8.4-10.2) mg/dL Total Bilirubin (0.2-1.3) mg/dL AST (17-59) U/L Total Creatine Kinase (55-170) U/L Albumin (3.5-5.0) g/dL Urine Mucus (None) /hpf Diabetes panel 06/14/18 06/15/18 Range/Units 14:06 05:47 Sodium 137 139 (137-145) mmol/L Potassium 5.6 H 5.4 H (3.5-5.1) mmol/L Chloride 106 108 H (98-107) mmol/L Carbon Dioxide 19 L 18 L (22-30) mmol/L BUN 36 H 38 H (9-20) mg/dL Creatinine 2.69 H 2.90 H (0.66-1.25) mg/dL Glucose 86 92 (74-99) mg/dL Calcium 8.6 8.3 L (8.4-10.2) mg/dL AST 16 L (17-59) U/L ALT 29 (21-72) U/L Alkaline Phosphatase 67 (38-126) U/L Total Protein 6.8 (6.3-8.2) g/dL Albumin 3.4 L (3.5-5.0) g/dL Calcium panel 06/14/18 06/15/18 Range/Units 14:06 05:47 Calcium 8.6 8.3 L (8.4-10.2) mg/dL Albumin 3.4 L (3.5-5.0) g/dL Pituitary panel 06/14/18 06/15/18 Range/Units 14:06 05:47 Sodium 137 139 (137-145) mmol/L Potassium 5.6 H 5.4 H (3.5-5.1) mmol/L Chloride 106 108 H (98-107) mmol/L Carbon Dioxide 19 L 18 L (22-30) mmol/L BUN 36 H 38 H (9-20) mg/dL Creatinine 2.69 H 2.90 H (0.66-1.25) mg/dL Glucose 86 92 (74-99) mg/dL Calcium 8.6 8.3 L (8.4-10.2) mg/dL Adrenal panel 06/14/18 06/15/18 Range/Units 14:06 05:47 Sodium 137 139 (137-145) mmol/L Potassium 5.6 H 5.4 H (3.5-5.1) mmol/L Chloride 106 108 H (98-107) mmol/L Carbon Dioxide 19 L 18 L (22-30) mmol/L BUN 36 H 38 H (9-20) mg/dL Creatinine 2.69 H 2.90 H (0.66-1.25) mg/dL Glucose 86 92 (74-99) mg/dL Calcium 8.6 8.3 L (8.4-10.2) mg/dL Total Bilirubin 2.2 H (0.2-1.3) mg/dL AST 16 L (17-59) U/L ALT 29 (21-72) U/L Alkaline Phosphatase 67 (38-126) U/L Total Protein 6.8 (6.3-8.2) g/dL Albumin 3.4 L (3.5-5.0) g/dL - Imaging CT scan - chest: report reviewed, image reviewed Assessment and Plan Assessment: Impression: Right upj stone, 1cm by history. History of uric acid stones Multiple medical issues including afib elevating creatinine Recommendations: The patient will need some treatment for his stone Options include ESWl,ureteroscopy w stent and pcnl He has seen Dr Javed in the past and I will notify him of an admission
[2018-06-15 07:22] LABS: Eosinophils # (M) 0.07 k/uL (0-0.7); Lymphocytes # (M) 0.64 k/uL (1.0-4.8); Monocytes # (M) 1.49 k/uL (0-1.0); Neutrophils % (M) 69 %; Nucleated Red Blood Cells 0 /100 WBC (0-0); Total Cells Counted 100
[2018-06-15 07:23] LABS: Large Platelets Present
[2018-06-15] MEDS: SYMBICORT 80-4.5 MCG INHALER INHALATION SCH ×3 (07:55→20:12)
[2018-06-15] MEDS: IPRATROPIUM-ALBUTEROL 3 ML NEB INHALATION SCH ×4 (07:55→20:08)
[2018-06-15] MEDS: ELTROMBOPAG 75 MG PO SCH (08:37)
[2018-06-15] MEDS: LOVAZA 1 GM PO SCH (08:37)
[2018-06-15] MEDS: HEPARIN SODIUM,PORCINE 5,000 UNIT/ML 1 ML VIAL SQ SCH (08:37)
[2018-06-15] MEDS: BALSALAZIDE DISODIUM 750 MG CAPSULE PO SCH ×3 (08:39→20:51)
[2018-06-15] MEDS: METOPROLOL SUCCINATE (ER) 50 MG TAB.ER.24H PO SCH (08:40)
[2018-06-15] MEDS: MULTIVITAMINS, THERA 1 EACH TAB PO SCH (08:40)
[2018-06-15] MEDS: ISOSORBIDE DINITRATE 20 MG TAB PO SCH ×3 (08:40→20:51)
[2018-06-15] MEDS: hydrALAZINE HCL 25 MG TAB PO SCH ×3 (08:40→20:51)
[2018-06-15] MEDS: ASPIRIN 81 MG PO SCH (08:40)
[2018-06-15] MEDS: TAMSULOSIN 0.4 MG CAP.ER.24H PO SCH (08:41)
[2018-06-15] MEDS ORDERED: FUROSEMIDE 20 MG TAB PO SCH (09:00)
[2018-06-15] MEDS ORDERED: POTASSIUM CHLORIDE ER 20 MEQ TAB.ER PO SCH (09:00)
[2018-06-15 11:33] VITALS: BMI 28.7
--- NOTE | 2018-06-15 12:34 | P.CRDCN ---
History of Present Illness Consult date: 06/15/18 History of present illness: This is a 78-year-old gentleman with previous medical history significant for paroxysmal atrial fibrillation, hypertension, renal insufficiency stage III, history of significant alcohol use, ulcerative colitis , idiopathic thrombocytopenia, chronic low back pain with prior laminectomy and fusion, COPD, nicotine dependence, who apparently was some most recently in, and it hospital with pneumonia. He presented here to the hospital with symptoms of shortness of breath, patient was also having some right sided abdominal pain. Patient did have an echocardiogram with Doppler study performed here in 2014 which revealed a normal left ventricular systolic function. EKG on admission here showed atrial fibrillation with a moderately rapid ventricular response. Chest x-ray showed a 4.7 cm mass suspected within the right midlung. Small bilateral pleural effusions. CTA of the chest was performed which revealed pleural effusions with basilar pulmonary infiltrates and atelectasis. No evidence of pulmonary mass. There is a loculated fluid in the right minor fissure that accounts for density in the right midlung. Mediastinotomy adenopathy. Ochoa megaly. Upper abdomen images show splenomegaly, spleen measuring 27 cm, possibility of lymphoma should be considered. Patient was also seen by urology because of flank pain, patient does have history of kidney stones, a CT scan didn't reveal a 1 cm right sided stone. Blood pressure on arrival here 104/50, heart rate 110, 96% on 3 L of oxygen. I pressure this morning 96/50 with a heart rate in the 90s, 96% on 2 L of oxygen. White blood cell count 7.1, hemoglobin 7.9, platelet count 46. Sodium 139, potassium 5.4, BUN 38, creatinine 2.9, creatinine on admission 2.6. Patient said creatinine in August 1.8. Magnesium 1.9. Troponin 0.012. Digoxin level 0.6. BNP level was not obtained. At the time of my examination, patient is lying flat in bed, but does appear to be quite short of breath, he complains of bloating in the abdomen and swelling in his legs, not currently having any flank pain but states that earlier it was quite severe. 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 Past Anesthesia/Blood Transfusion Reactions: No Reported Reaction Additional Past Anesthesia/Blood Transfusion Reaction / Comment(s): clausterphobic. pt stated has recieved platelets in past. Past Psychological History: Anxiety Additional Psychological History / Comment(s): pt lives with in condo-has 1 step. pt uses a cane when out walking,besides cane has a cpap machine.. no home care services. Smoking Status: Former smoker Past Alcohol Use History: None Reported Additional Past Alcohol Use History / Comment(s): started smoking at age 17(1957 ) and quit 2011. smoked 1 ppd. past occ alcohol none now. denies any past or current drug use. Past Drug Use History: None Reported - Past Family History Mother Family Medical History: CVA/TIA Father Family Medical History: Coronary Artery Disease (CAD), Myocardial Infarction ([place] ) Brother(s) Family Medical History: CVA/TIA Sister(s) Family Medical History: No Reported History Daughter(s) Family Medical History: No Reported History Son(s) Family Medical History: No Reported History Medications and Allergies Home Medications Medication Instructions Recorded Confirmed Type Loratadine [Claritin] 10 mg PO DAILY 03/23/15 06/14/18 History Metoprolol Succinate [Toprol XL] 50 mg PO DAILY 03/23/15 06/14/18 History Fluticasone/Salmeterol [Advair 1 puff INHALATION RT-BID 04/16/15 06/14/18 History 250-50 Diskus] Aspirin EC [Ecotrin Low Dose] 81 mg PO DAILY 09/03/17 06/14/18 History Eltrombopag Olamine [Promacta] 75 mg PO DAILY 09/03/17 06/14/18 History Tamsulosin HCl [Flomax] 0.4 mg PO DAILY 09/03/17 06/14/18 History Apriso 375 Mg 24hr Cap 1,500 mg PO HS 06/14/18 06/14/18 History Bidil 20-37.5mg 1 tab PO TID 06/14/18 06/14/18 History Furosemide [Lasix] 20 mg PO DAILY 06/14/18 06/14/18 History Ipratropium-Albuterol Nebulize 3 ml INHALATION RT-QID 06/14/18 06/14/18 History [Duoneb 0.5 mg-3 mg/3 ml Soln] Multivitamins, Thera [Multivitamin 1 tab PO DAILY 06/14/18 06/14/18 History (formulary)] [place]-3 Acid Ethyl Esters [Lovaza] 1 gm PO DAILY 06/14/18 06/14/18 History Pantoprazole Sodium [Protonix] 40 mg PO DAILY 06/14/18 06/14/18 History Potassium Chloride ER [K-Dur 20] 20 meq PO DAILY 06/14/18 06/14/18 History Allergies Allergy/AdvReac Type Severity Reaction Status Date / Time acetaminophen Allergy Unknown Verified 06/14/18 14:44 [From Darvocet-N] codeine Allergy Unknown Verified 06/14/18 14:44 ibuprofen [From Motrin] Allergy Unknown Verified 06/14/18 14:44 Iodinated Contrast- Oral and Allergy Unknown Verified 06/14/18 14:44 IV Dye [Iodinated Contrast Media - IV Dye] propoxyphene Allergy Unknown Verified 06/14/18 14:44 [From Darvocet-N] hydromorphone HCl AdvReac Hallucinati Verified 06/14/18 14:44 [From Dilaudid] ons morphine AdvReac Hallucinati Verified 06/14/18 14:44 ons Physical Exam Vitals: Vital Signs Temp Pulse Pulse Resp BP BP BP 06/15/18 08:09 94 06/15/18 08:00 97.0 F L 110 H 20 104/62 06/15/18 07:55 94 06/15/18 04:00 97.6 F 95 18 110/66 06/15/18 00:00 97.7 F 111 H 19 104/56 06/14/18 20:00 97.0 F L 86 20 90/66 06/14/18 17:55 102 H 32 H 97/65 06/14/18 16:52 97.4 F L 94 32 H 105/70 06/14/18 16:14 97.8 F 96 18 105/65 06/14/18 15:11 91 18 98/53 06/14/18 13:51 97.6 F 117 H 18 101/64 Pulse Ox 06/15/18 08:09 06/15/18 08:00 95 06/15/18 07:55 06/15/18 04:00 97 06/15/18 00:00 96 06/14/18 20:00 94 L 06/14/18 17:55 95 06/14/18 16:52 95 06/14/18 16:14 96 06/14/18 15:11 96 06/14/18 13:51 97 Intake and Output 06/14/18 06/15/18 06/15/18 22:59 06:59 14:59 Intake Total 300 600 Output Total 50 200 Balance -50 100 600 Intake: Intake, IV Titration 300 600 Amount Sodium Chloride 0.9% 1, 300 600 000 ml @ 75 mls/hr IV . [id number] [facility] Rx#:[id number] Output: Urine 50 200 Other: Voiding Method Urinal Urinal Urinal Weight 83.2 kg PHYSICAL EXAMINATION: GENERAL: 78-year-old gentleman in no acute distress at the time of my examination. HEENT: Head is atraumatic, normocephalic. Pupils equal, round. Sclera anicteric. Conjunctiva are clear. Mucous membranes of the mouth are moist. Neck is supple. There is elevated jugular venous pressure. No carotid bruit is heard. HEART EXAMINATION: Heart S1, S2 normal. No murmur or gallop heard. CHEST EXAMINATION: Lungs reveal bilateral crackles with diminished air entry to the bases . No chest wall tenderness is noted on palpation or with deep breathing. ABDOMEN: Soft, mild generalized tenderness . Bowel sounds are heard. No organomegaly noted. EXTREMITIES: 1+ peripheral pulses with no evidence of peripheral edema and no calf tenderness noted. NEUROLOGIC patient is awake, alert and orientedX3. . Results 06/15/18 05:47 06/15/18 05:47 Cardiac Enzymes 06/14/18 06/14/18 Range/Units 14:06 14:06 AST 16 L (17-59) U/L CK-MB (CK-2) 0.5 (0.0-2.4) ng/mL Troponin I <0.012 (0.000-0.034) ng/mL Coagulation 06/14/18 Range/Units 14:06 PT 12.2 H (9.0-12.0) sec APTT 23.8 (22.0-30.0) sec CBC 06/14/18 06/15/18 Range/Units 14:06 05:47 WBC 7.7 7.1 (3.8-10.6) k/uL RBC 3.00 L 2.62 L (4.30-5.90) m/uL Hgb 8.7 L 7.9 L (13.0-17.5) gm/dL Hct 27.1 L 24.3 L (39.0-53.0) % Plt Count 52 L 46 L* (150-450) k/uL Comprehensive Metabolic Panel 06/14/18 06/15/18 Range/Units 14:06 05:47 Sodium 137 139 (137-145) mmol/L Potassium 5.6 H 5.4 H (3.5-5.1) mmol/L Chloride 106 108 H (98-107) mmol/L Carbon Dioxide 19 L 18 L (22-30) mmol/L BUN 36 H 38 H (9-20) mg/dL Creatinine 2.69 H 2.90 H (0.66-1.25) mg/dL Glucose 86 92 (74-99) mg/dL Calcium 8.6 8.3 L (8.4-10.2) mg/dL AST 16 L (17-59) U/L ALT 29 (21-72) U/L Alkaline Phosphatase 67 (38-126) U/L Total Protein 6.8 (6.3-8.2) g/dL Albumin 3.4 L (3.5-5.0) g/dL Current Medications Generic Name Dose Route Start Last Admin Trade Name Freq PRN Reason Stop Dose Admin Albuterol/Ipratropium 3 ml 06/14/18 20:00 06/15/18 07:55 Duoneb 0.5 Mg-3 Mg/3 Ml Soln INHALATION 3 ml RT-QID [facility] Administration Alprazolam 0.25 mg 06/14/18 16:22 Xanax PO TID PRN Anxiety Aspirin 81 mg 06/15/18 09:00 06/15/18 08:40 Aspirin PO 81 mg DAILY [facility] Administration Balsalazide 2,250 mg 06/14/18 22:00 06/15/18 08:39 Colazal PO 2,250 mg TID [facility] Administration Budesonide/Formoterol Fumarate 2 puff 06/14/18 20:00 06/15/18 08:10 Symbicort 80-4.5 Mcg Inhaler INHALATION Not Given RT-BID [facility] Heparin Sodium (Porcine) 5,000 unit 06/14/18 21:00 06/15/18 08:37 Heparin SQ Not Given Q12HR [facility] Hydralazine HCl 37.5 mg 06/14/18 16:00 06/15/18 08:40 Apresoline PO 37.5 mg TID [facility] Administration Hydromorphone HCl 0.5 mg 06/14/18 15:26 Dilaudid IVP Q3HR PRN Moderate Pain Sodium Chloride 1,000 mls @ 75 mls/hr 06/14/18 15:30 06/15/18 06:13 Saline 0.9% IV 75 mls/hr .[id number] [facility] Administration Isosorbide Dinitrate 20 mg 06/14/18 16:00 06/15/18 08:40 Isordil PO 20 mg TID [facility] Administration Melatonin 3 mg 06/14/18 21:00 06/14/18 20:02 Melatonin PO 3 mg HS [facility] Administration Metoprolol Succinate 50 mg 06/15/18 09:00 06/15/18 08:40 Toprol Xl PO 50 mg DAILY [facility] Administration Multivitamins 1 each 06/15/18 09:00 06/15/18 08:40 Theragran PO Not Given DAILY [facility] Naloxone HCl 0.2 mg 06/14/18 15:26 Narcan IV Q2M PRN Opioid Reversal Eltrombopag 75mg 75 mg 06/15/18 09:00 06/15/18 08:37 PO Not Given DAILY [facility] Lovaza 1 Gm 1 gm 06/15/18 09:00 06/15/18 08:37 PO Not Given DAILY [facility] Pantoprazole Sodium 40 mg 06/15/18 07:30 06/15/18 06:12 Protonix PO 40 mg [id number] [facility] Administration Tamsulosin HCl 0.4 mg 06/15/18 09:00 06/15/18 08:41 Flomax PO 0.4 mg DAILY [facility] Administration Intake and Output 06/14/18 06/15/18 06/15/18 22:59 06:59 14:59 Intake Total 300 600 Output Total 50 200 Balance -50 100 600 Intake: Intake, IV Titration 300 600 Amount Sodium Chloride 0.9% 1, 300 600 000 ml @ 75 mls/hr IV . [id number] [facility] Rx#:[id number] Output: Urine 50 200 Other: Voiding Method Urinal Urinal Urinal Weight 83.2 kg 06/15/18 05:47 06/15/18 05:47 EKG Interpretations (text) EKG shows atrial fibrillation with left bundle branch block pattern, moderately rapid ventricular response. Assessment and Plan Plan: Assessment and plan #1 symptoms of progressively worsening shortness of breath, bibasal infiltrates noted on x-ray, possible pneumonia, possible CHF exacerbation, LV function unknown. Most recent echo showed a normal left ventricular systolic function in 2016. #2 atrial fibrillation with moderately rapid ventricular response, patient not a candidate for anticoagulation because of ITP #3 acute on chronic renal failure #4 history of paroxysmal atrial fibrillation #5 COPD #6 chronic liver disease #7 sleep apnea #8 ITP was splenomegaly #9 hypertension #10 right-sided flank pain with evidence of renal stone #11 nicotine dependence Plan We will obtain a BNP level, repeat echocardiogram with Doppler study. We will give 24 hours of IV Lasix. Check lytes BUN creatinine intake and output and daily weights in the morning. Discontinue IV fluids. DNP note has been reviewed, I agree with a documented findings and plan of care. Patient was seen and examined.
--- NOTE | 2018-06-15 12:35 | P.CNPUL ---
History of Present Illness Consult date: 06/15/18 Chief complaint: Pneumonia, bilateral pleural effusion History of present illness: 78-year-old male patient got transferred from [facility] because of A. fib RVR and left flank pain. The patient has an extensive history. [id number] [place] [facility] respiratory failure. He had to be intubated and placed on a mechanical ventilator. During the course of the treatment the patient was also found to have nephrolithiasis and bilateral kidney stones with hydronephrosis. He underwent a urologic evaluation where he underwent a double-J stent insertion bilaterally. The stents were Then and ultimately there were removed on outpatient basis at the later stage. On today's evaluation, the patient is in the hospital because of some discomfort along his right flank area. No hematuria. No fever or chills. He has had some worsening shortness of breath and he was found to be in atrial fibrillation with rapid ventricular response. His known to have chronic A. fib and he is on no anticoagulants based on his previous history of ITP. His platelet counts are in the low 50s. No altered mentation. No nausea. No vomiting. No abdominal pain. No headaches. He was seen by urology. A follow- up CAT scan of the chest was done on 06/14/2018 here in our hospital and it showed bilateral pleural effusion that were somewhat loculated. No evidence of any lung masses or tumors. There is some loculated fluid within the minor fissure on the right side and this is located in the right midlung. Some nonspecific enlarged mediastinal lymphadenopathy measuring up to 2 cm in size. The upper abdominal images showing splenomegaly. I also reviewed the CAT scan of the chest abdomen and pelvis that was done and [facility] 24 hours ago and it showed similar findings in the lungs. There patient was found to have a calculus in the right UPJ with evidence of hydronephrosis. His renal function is worse compared to his baseline and is currently having diminished urine output. Creatinine today's at 2.9. Review of Systems Constitutional: Reports fatigue, Reports poor appetite, Reports weakness Eyes: denies blurred vision, denies bulging eye, denies decreased vision Ears: deny: decreased hearing, ear discharge, earache, tinnitus Ears, nose, mouth and throat: Denies headache, Denies sore throat Cardiovascular: Reports decreased exercise tolerance Respiratory: Reports dyspnea, Reports sleep apnea Gastrointestinal: Denies abdominal pain, Denies diarrhea, Denies nausea, Denies vomiting Genitourinary: Reports flank pain, Reports kidney stones Musculoskeletal: Denies myalgias Musculoskeletal: absent: ankle pain, ankle stiffness, ankle swelling Integumentary: Denies pruritus, Denies rash Neurological: Reports weakness, Denies numbness Endocrine: Reports fatigue Hematologic/Lymphatic: Reports as per HPI Allergic/Immunologic: Reports as per HPI Past Medical History Past Medical History: Atrial Fibrillation, Blood Disorder, Heart Failure, COPD, GERD/Reflux, Liver Disease, Osteoarthritis (OA), Pneumonia, Renal Disease, Sleep Apnea/CPAP/BIPAP Additional Past Medical History / Comment(s): idiopathic thrombocytepenia w/ splenomegaly,low plaelets monitored by mold sander diverticulitis, ITP, ulcers in past,colitis,ddd,gout low back pain, kidney stones feb had taken out 2014 in [facility], [place] [place] (liver count goes up and down) ( 03/31/15 fell broke ribs broke 2 toes and ended having pneumonia and was on life support in ICU) chest tube about 3 years ago for bilateral pneumonia, cataract in one eye "not sure which one" History of Any Multi-Drug Resistant Organisms: None Reported Past Surgical History: Back Surgery, Cholecystectomy, Heart Catheterization, Orthopedic Surgery Additional Past Surgical History / Comment(s): cardiac ablation, , heart catheterization 2011, cholecystectomy, cystoscopy with J stent placement.rotator cuff, neck surgery, lithotripsy,colonoscopy,jim kidney stents. Past Anesthesia/Blood Transfusion Reactions: No Reported Reaction Additional Past Anesthesia/Blood Transfusion Reaction / Comment(s): clausterphobic. pt stated has recieved platelets in past. Past Psychological History: Anxiety Additional Psychological History / Comment(s): pt lives with in condo-has 1 step. pt uses a cane when out walking,besides cane has a cpap machine.. no home care services. Smoking Status: Former smoker Past Alcohol Use History: None Reported Additional Past Alcohol Use History / Comment(s): started smoking at age 17(1957 ) and quit 2011. smoked 1 ppd. past occ alcohol none now. denies any past or current drug use. Past Drug Use History: None Reported - Past Family History Mother Family Medical History: CVA/TIA Father Family Medical History: Coronary Artery Disease (CAD), Myocardial Infarction ([place] ) Brother(s) Family Medical History: CVA/TIA Sister(s) Family Medical History: No Reported History Daughter(s) Family Medical History: No Reported History Son(s) Family Medical History: No Reported History Medications and Allergies Home Medications Medication Instructions Recorded Confirmed Type Loratadine [Claritin] 10 mg PO DAILY 03/23/15 06/14/18 History Metoprolol Succinate [Toprol XL] 50 mg PO DAILY 03/23/15 06/14/18 History Fluticasone/Salmeterol [Advair 1 puff INHALATION RT-BID 04/16/15 06/14/18 History 250-50 Diskus] Aspirin EC [Ecotrin Low Dose] 81 mg PO DAILY 09/03/17 06/14/18 History Eltrombopag Olamine [Promacta] 75 mg PO DAILY 09/03/17 06/14/18 History Tamsulosin HCl [Flomax] 0.4 mg PO DAILY 09/03/17 06/14/18 History Apriso 375 Mg 24hr Cap 1,500 mg PO HS 06/14/18 06/14/18 History Bidil 20-37.5mg 1 tab PO TID 06/14/18 06/14/18 History Furosemide [Lasix] 20 mg PO DAILY 06/14/18 06/14/18 History Ipratropium-Albuterol Nebulize 3 ml INHALATION RT-QID 06/14/18 06/14/18 History [Duoneb 0.5 mg-3 mg/3 ml Soln] Multivitamins, Thera [Multivitamin 1 tab PO DAILY 06/14/18 06/14/18 History (formulary)] Burnham-3 Acid Ethyl Esters [Lovaza] 1 gm PO DAILY 06/14/18 06/14/18 History Pantoprazole Sodium [Protonix] 40 mg PO DAILY 06/14/18 06/14/18 History Potassium Chloride ER [K-Dur 20] 20 meq PO DAILY 06/14/18 06/14/18 History Allergies Allergy/AdvReac Type Severity Reaction Status Date / Time acetaminophen Allergy Unknown Verified 06/14/18 14:44 [From Darvocet-N] codeine Allergy Unknown Verified 06/14/18 14:44 ibuprofen [From Motrin] Allergy Unknown Verified 06/14/18 14:44 Iodinated Contrast- Oral and Allergy Unknown Verified 06/14/18 14:44 IV Dye [Iodinated Contrast Media - IV Dye] propoxyphene Allergy Unknown Verified 06/14/18 14:44 [From Darvocet-N] hydromorphone HCl AdvReac Hallucinati Verified 06/14/18 14:44 [From Dilaudid] ons morphine AdvReac Hallucinati Verified 06/14/18 14:44 ons Physical Exam Vitals: Vital Signs Temp Pulse Pulse Resp BP BP BP 06/15/18 11:38 96.3 F L 94 18 96/53 06/15/18 08:09 94 06/15/18 08:00 97.0 F L 110 H 20 104/62 06/15/18 07:55 94 06/15/18 04:00 97.6 F 95 18 110/66 06/15/18 00:00 97.7 F 111 H 19 104/56 06/14/18 20:00 97.0 F L 86 20 90/66 06/14/18 17:55 102 H 32 H 97/65 06/14/18 16:52 97.4 F L 94 32 H 105/70 06/14/18 16:14 97.8 F 96 18 105/65 06/14/18 15:11 91 18 98/53 06/14/18 13:51 97.6 F 117 H 18 101/64 Pulse Ox 06/15/18 11:38 96 06/15/18 08:09 06/15/18 08:00 95 06/15/18 07:55 06/15/18 04:00 97 06/15/18 00:00 96 06/14/18 20:00 94 L 06/14/18 17:55 95 06/14/18 16:52 95 06/14/18 16:14 96 06/14/18 15:11 96 06/14/18 13:51 97 Intake and Output 06/14/18 06/15/18 06/15/18 22:59 06:59 14:59 Intake Total 300 830 Output Total 50 200 Balance -50 100 830 Intake: Intake, IV Titration 300 600 Amount Sodium Chloride 0.9% 1, 300 600 000 ml @ 75 mls/hr IV . [id number] [facility] Rx#:[id number] Oral 230 Output: Urine 50 200 Other: Voiding Method Urinal Urinal Urinal Weight 83.2 kg 83.2 kg Gen. appearance the patient is calm comfortable likely distress laying comfortably in bed Head exam was generally normal. There was no scleral icterus or corneal arcus. Mucous membranes were moist. Neck was supple and without jugular venous distension, thyromegaly, or carotid bruits. Carotids were easily palpable bilaterally. There was no adenopathy. Lungs sounds are diminished in lung bases bilaterally along with some dullness to percussion and the breath sounds are quite diminished in the right lung base Cardiac exam revealed the PMI to be normally situated and sized. The rhythm was irregular and no extrasystoles were noted during several minutes of auscultation. The first and second heart sounds were normal and physiologic splitting of the second heart sound was noted. Overall heart sounds are quite distant and there is irregular secondary atrial fibrillation Abdominal exam revealed normal bowel sounds. The abdomen was soft, non-tender, and without masses, organomegaly, or appreciable enlargement of the abdominal aorta. Examination of the extremities revealed easily palpable radial, femoral and pedal pulses. There was no cyanosis, clubbing or edema. Examination of the skin revealed no evidence of significant rashes, suspicious appearing nevi or other concerning lesions. Neurologically awake and alert and there is no focal neurological deficits. Results - Laboratory Findings CBC and BMP: 06/15/18 05:47 06/15/18 05:47 PT/INR, D-dimer PT 12.2 sec (9.0-12.0) H 06/14/18 14:06 INR 1.3 (<1.2) H 06/14/18 14:06 Abnormal lab findings: Abnormal Labs 06/14/18 06/14/18 06/14/18 14:06 14:06 14:06 RBC 3.00 L Hgb 8.7 L Hct 27.1 L RDW 21.1 H Plt Count 52 L Lymphocytes # (Manual) Monocytes # (Manual) PT INR Potassium 5.6 H Chloride Carbon Dioxide 19 L BUN 36 H Creatinine 2.69 H Calcium Total Bilirubin 2.2 H AST 16 L Total Creatine Kinase <20 L Albumin 3.4 L Urine Mucus 06/14/18 06/14/18 06/15/18 14:06 14:06 05:47 RBC 2.62 L Hgb 7.9 L Hct 24.3 L RDW 20.7 H Plt Count 46 L* Lymphocytes # (Manual) 0.64 L Monocytes # (Manual) 1.49 H PT 12.2 H INR 1.3 H Potassium Chloride Carbon Dioxide BUN Creatinine Calcium Total Bilirubin AST Total Creatine Kinase Albumin Urine Mucus Rare H 06/15/18 05:47 RBC Hgb Hct RDW Plt Count Lymphocytes # (Manual) Monocytes # (Manual) PT INR Potassium 5.4 H Chloride 108 H Carbon Dioxide 18 L BUN 38 H Creatinine 2.90 H Calcium 8.3 L Total Bilirubin AST Total Creatine Kinase Albumin Urine Mucus - Diagnostic Findings Chest x-ray: image reviewed CT scan - chest: image reviewed Assessment and Plan Plan: Assessment 1 bilateral pleural effusion with loculated pocket of fluid within the right minor fissure. The pleural effusions are small and there are probably related to a recent/previous pneumonia. Note that the patient was hospitalized and he was intubated and placed on mechanical ventilator 2 for complications of pneumonia. Would like to obtain previous chest x-ray or CAT scan images from [facility] for comparison. The pleural fluids are small and they're not amenable for thoracentesis at this point. No active signs of ongoing pneumonia for now 2 nephrolithiasis with a kidney stone obstructing the right UPJ with secondary hydronephrosis 3 acute kidney injury with a creatinine of 2.9 4 COPD 5 chronic dyspnea secondary to above 6 obstructive sleep apnea 7 chronic anemia, anemia of chronic disease 8 ITP with chronically low platelet counts 9 acid reflux 10 chronic atrial fibrillation with rapid ventricular response at a time of admission, improving and the patient is on no anticoagulants 11 remote history of pneumonia requiring chest tube insertion and possibly for parapneumonic effusions back in 2014. This was also a complication of a fall and broken ribs 12 the liver's disease of the liver 13 history of diverticulosis and previous history of diverticulitis 14 degenerative arthritis 15 gout 16 chronic back pain Plan From the pulmonary standpoint, would like to obtain previous films for comparison. I think the pleural effusions are small and somewhat loculated and they are area reminiscent of a previous pneumonia. The patient has been hospitalized intubated and placed on mechanical ventilator for bilateral pneumonia and would like to obtain previous films for comparison. No need for thoracentesis at this point. Nephrology consultation regarding right UPJ junction stone/hydronephrosis. I'll patient medication will resume. Management of atrial fibrillation per cardiology. Monitor [place] for now. Monitor renal function. We'll continue to follow.
[2018-06-15] MEDS: FUROSEMIDE 10 MG/ML 4 ML VIAL IV SCH ×2 (13:06→20:50)
--- NOTE | 2018-06-15 16:20 | PN ---
PROGRESS NOTE DATE OF SERVICE: 06/15/2018. INTERVAL HISTORY: This 78-year-old gentleman who was admitted with atrial fibrillation with fast ventricular rate also had bibasilar infiltrate and left lower lobe pneumonia also. The patient also had renal failure. The patient is being closely monitored at this time. The hemoglobin is 11.9. Patient also had urolithiasis evaluated by Urology. Pulmonary Dr. Lawrence is following the patient closely. PAST MEDICAL HISTORY: Reviewed. REVIEW OF SYSTEMS: CARDIOVASCULAR: No angina or palpitations. Respiration: As mentioned earlier. GI: As mentioned earlier. no dysuria. CURRENT MEDICATIONS: Reviewed and include: 1. DuoNeb q.i.d. and p.r.n. 2. Xanax 0.5 t.i.d. 3. Aspirin 81 mg. 5. Symbicort HFA 2 puffs b.i.d. 6. Lasix 40 mg b.i.d. 7. Heparin b.i.d. 8. Apresoline 37 mg p.o. t.i.d. 9. Dilaudid. 10.Mysoline. 11.Melatonin. 12.Topamax. 13.Narcan. 15.Protonix. 16.Flomax. PHYSICAL EXAM: Patient is alert, oriented x3. Pulse is 94, blood pressure 93/50, respiration 18, temperature is 98.3, pulse ox 98 percent on 2 L. HEENT is conjunctivae normal. Oral mucosa moist. Neck is no jugular venous distention. No carotid bruit. No lymph node enlargement. Cardiovascular systems: Breath sounds diminished in the bases. Scattered rhonchi and crackles. ABDOMEN: Soft. Mild diffuse distention. Mild diffuse discomfort on palpation. No guarding. No rigidity. No mass palpable. Legs no edema. No swelling. Nervous system: Higher functions as mentioned earlier. Moves all 4 limbs. No focal motor or sensory deficits. Lymphatics: No lymph nodes palpable in the neck, axillae or groin. Skin: No ulcer, rashes or bleeding. LABS: WBC 7.2, platelets 46. Potassium is 5.4. ASSESSMENT: 1. Atrial fibrillation with fast ventricular rate. 2. Bibasilar infiltrate with bilateral pneumonia. 3. Acute renal failure possibly prerenal renal failure. 4. Possible urolithiasis. 5. Atrial fibrillation. 6. Thrombocytopenia, possibly idiopathic thrombocytopenia purpura. 7. History of chronic obstructive pulmonary disease. 8. Gastroesophageal reflux disease. 9. History of chronic liver disease. 10.History of degenerative joint disease. 11.History of renal disease. 12.Sleep apnea. 14.History of colitis in the past. 15.History of renal stones. 16.History of back surgery. 17.Degenerative joint disease. 18.History of anxiety. 19.History of nicotine dependence. 20.FULL CODE. RECOMMENDATIONS AND DISCUSSION: Recommend to continue current medications, management and symptomatic treatment. We will monitor creatinine closely and closely follow with multiple consultants. I would also recommend nephrology evaluation also with Dr. Leon. Otherwise repeat labs. Monitor fluid and electrolytes closely. Continue the antibiotics. The cultures are negative so far. We will stop the heparin because of the persistent thrombocytopenia. Continue with DVT prophylaxis. Guarded prognosis because of multiple complex medical issues. Further recommendations to follow. Recommend thigh-high Teds. MMODL / IJN: [id number] / LIBRA
[2018-06-15] MEDS: ALPRAZolam 0.25 MG TAB PO PRN (20:52)
[2018-06-15] MEDS: MELATONIN 3 MG TABLET PO SCH (20:56)
[2018-06-16] MEDS: PANTOPRAZOLE 40 MG TABLET PO SCH (06:27)
[2018-06-16] MEDS: SODIUM CHLORIDE 0.9% 1,000 ML IV SCH ×2 (06:28→20:34)
[2018-06-16 06:33] LABS: Calcium 8.6 mg/dL (8.4-10.2); Potassium 4.5 mmol/L (3.5-5.1)
[2018-06-16 07:02] LABS: Anisocytosis Moderate; HCT 25.2 % (39.0-53.0); HGB 8.1 gm/dL (13.0-17.5); Hypochromasia Slight; MCH 29.6 pg (25.0-35.0); MCHC 32.2 g/dL (31.0-37.0); Macrocytosis Slight; Mean Platelet Volume 14.6; RBC 2.74 m/uL (4.30-5.90); RDW 20.9 % (11.5-15.5); WBC 7.5 k/uL (3.8-10.6)
[2018-06-16 07:21] LABS: Platelet Count 63 k/uL (150-450)
--- NOTE | 2018-06-16 08:09 | P.PN ---
Progress Note - Text Progress Note Date: 06/16/18 The patient is comfortable and his main complaint is shortness of breath. His creatinine has risen to 3.0. I discussed cystoscopy with placement of a right double j catheter for paliation of his obstructive uropathy but this may need to be delayed until his atril fib is under better control. A decision will be made later this morning.
[2018-06-16] MEDS: IPRATROPIUM-ALBUTEROL 3 ML NEB INHALATION SCH ×4 (08:53→19:31)
[2018-06-16 08:56] LABS: Large Platelets Present; Monocytes # (M) 0.75 k/uL (0-1.0); Myelocytes # (M) 0.08 k/uL (0); Myelocytes % 1 %; Neutrophils # (M) 5.48 k/uL (1.3-7.7); Neutrophils % (M) 73 %; Nucleated Red Blood Cells 0 /100 WBC (0-0); Total Cells Counted 100
[2018-06-16] MEDS: SYMBICORT 80-4.5 MCG INHALER INHALATION SCH ×2 (09:00→19:31)
[2018-06-16] MEDS: hydrALAZINE HCL 25 MG TAB PO SCH ×3 (09:12→20:28)
[2018-06-16] MEDS: BALSALAZIDE DISODIUM 750 MG CAPSULE PO SCH ×3 (09:12→20:28)
[2018-06-16] MEDS: MULTIVITAMINS, THERA 1 EACH TAB PO SCH (09:13)
[2018-06-16] MEDS: ISOSORBIDE DINITRATE 20 MG TAB PO SCH ×3 (09:13→20:28)
[2018-06-16] MEDS: ELTROMBOPAG 75 MG PO SCH (09:13)
[2018-06-16] MEDS: ASPIRIN 81 MG PO SCH (09:13)
[2018-06-16] MEDS: METOPROLOL SUCCINATE (ER) 50 MG TAB.ER.24H PO SCH (09:13)
[2018-06-16] MEDS: LOVAZA 1 GM PO SCH (09:13)
[2018-06-16] MEDS: FUROSEMIDE 10 MG/ML 4 ML VIAL IV SCH ×2 (09:14→20:27)
[2018-06-16] MEDS: TAMSULOSIN 0.4 MG CAP.ER.24H PO SCH (09:14)
[2018-06-16] MEDS: ALPRAZolam 0.25 MG TAB PO PRN ×2 (10:56→21:49)
--- NOTE | 2018-06-16 11:36 | P.NPCON ---
History of Present Illness - Reason for Consult Consult date: 06/16/18 acute renal failure - Chief Complaint Acute kidney injury and pneumonia - History of Present Illness This is a 78-year-old male seen in consultation because of acute kidney injury. Patient is not a good historian. Is known with nephrolithiasis which is recurrent. He was transferred from [facility], There patient was found to have a calculus in the right UPJ with evidence of hydronephrosis. He was also on nonsteroidal Advil. Further his blood pressure was low in the 80s when he came in all these factors likely explained his acute kidney injury as well as possible element of obstructive nephropathy from a recent bilateral kidney stones when he was in [place] and had bilateral stents that have been removed. At the time he was admitted for pneumonia and for a prolonged hospitalization. Regarding his stone is unaware of any 24-hour urine being done but he does have gout and he probably think his uric acid stone. His had multiple interventions or kidney stones. Additionally he has ITP with splenomegaly and is on medication for the same. He has sleep apnea and is on oxygen at home. Currently his complaints are off stable shortness of breath. There was some flank pain but currently is pain-free. No nausea vomiting diarrhea no abdominal pain no dysuria frequency hematuria. He is also known with atrial fibrillation and liver disease with bilirubin up to 2.2 this admission is unaware of the reason for this. Past Medical History Past Medical History: Atrial Fibrillation, Blood Disorder, Heart Failure, COPD, GERD/Reflux, Liver Disease, Osteoarthritis (OA), Pneumonia, Renal Disease, Sleep Apnea/CPAP/BIPAP Additional Past Medical History / Comment(s): idiopathic thrombocytepenia w/ splenomegaly,low plaelets monitored by pier worker diverticulitis, ITP, ulcers in past,colitis,ddd,gout low back pain, kidney stones feb had taken out 2014 in [facility], [place] disease (liver count goes up and down) ( 03/31/15 fell broke ribs broke 2 toes and ended having pneumonia and was on life support in ICU) chest tube about 3 years ago for bilateral pneumonia, cataract in one eye "not sure which one" History of Any Multi-Drug Resistant Organisms: None Reported Past Surgical History: Back Surgery, Cholecystectomy, Heart Catheterization, Orthopedic Surgery Additional Past Surgical History / Comment(s): cardiac ablation, , heart catheterization 2011, cholecystectomy, cystoscopy with J stent placement.rotator cuff, neck surgery, lithotripsy,colonoscopy,jim kidney stents. Past Anesthesia/Blood Transfusion Reactions: No Reported Reaction Additional Past Anesthesia/Blood Transfusion Reaction / Comment(s): clausterphobic. pt stated has recieved platelets in past. Past Psychological History: Anxiety Additional Psychological History / Comment(s): pt lives with in condo-has 1 step. pt uses a cane when out walking,besides cane has a cpap machine.. no home care services. Smoking Status: Former smoker Past Alcohol Use History: None Reported Additional Past Alcohol Use History / Comment(s): started smoking at age 17(1956 ) and quit 2011. smoked 1 ppd. past occ alcohol none now. denies any past or current drug use. Past Drug Use History: None Reported - Past Family History Mother Family Medical History: CVA/TIA Father Family Medical History: Coronary Artery Disease (CAD), Myocardial Infarction (CO ) Brother(s) Family Medical History: CVA/TIA Sister(s) Family Medical History: No Reported History Daughter(s) Family Medical History: No Reported History Son(s) Family Medical History: No Reported History Medications and Allergies Home Medications Medication Instructions Recorded Confirmed Type Loratadine [Claritin] 10 mg PO DAILY 03/23/15 06/14/18 History Metoprolol Succinate [Toprol XL] 50 mg PO DAILY 03/23/15 06/14/18 History Fluticasone/Salmeterol [Advair 1 puff INHALATION RT-BID 04/16/15 06/14/18 History 250-50 Diskus] Aspirin EC [Ecotrin Low Dose] 81 mg PO DAILY 09/03/17 06/14/18 History Eltrombopag Olamine [Promacta] 75 mg PO DAILY 09/03/17 06/14/18 History Tamsulosin HCl [Flomax] 0.4 mg PO DAILY 09/03/17 06/14/18 History Apriso 375 Mg 24hr Cap 1,500 mg PO HS 06/14/18 06/14/18 History Bidil 20-37.5mg 1 tab PO TID 06/14/18 06/14/18 History Furosemide [Lasix] 20 mg PO DAILY 06/14/18 06/14/18 History Ipratropium-Albuterol Nebulize 3 ml INHALATION RT-QID 06/14/18 06/14/18 History [Duoneb 0.5 mg-3 mg/3 ml Soln] Multivitamins, Thera [Multivitamin 1 tab PO DAILY 06/14/18 06/14/18 History (formulary)] [place]-3 Acid Ethyl Esters [Lovaza] 1 gm PO DAILY 06/14/18 06/14/18 History Pantoprazole Sodium [Protonix] 40 mg PO DAILY 06/14/18 06/14/18 History Potassium Chloride ER [K-Dur 20] 20 meq PO DAILY 06/14/18 06/14/18 History Allergies Allergy/AdvReac Type Severity Reaction Status Date / Time acetaminophen Allergy Unknown Verified 06/14/18 14:44 [From Darvocet-N] codeine Allergy Unknown Verified 06/14/18 14:44 ibuprofen [From Motrin] Allergy Unknown Verified 06/14/18 14:44 Iodinated Contrast- Oral and Allergy Unknown Verified 06/14/18 14:44 IV Dye [Iodinated Contrast Media - IV Dye] propoxyphene Allergy Unknown Verified 06/14/18 14:44 [From Darvocet-N] hydromorphone HCl AdvReac Hallucinati Verified 06/14/18 14:44 [From Dilaudid] ons morphine AdvReac Hallucinati Verified 06/14/18 14:44 ons Physical Exam Vitals: Vital Signs Temp Pulse Pulse Resp BP Pulse Ox 06/16/18 09:08 120 H 06/16/18 08:54 120 H 06/16/18 08:00 96.9 F L 120 H 18 96/76 93 L 06/16/18 04:00 98.9 F 122 H 20 122/59 96 06/16/18 00:00 98.4 F 97 18 95/60 94 L 06/15/18 20:21 96 06/15/18 20:09 96 06/15/18 20:00 96.6 F L 99 18 117/70 93 L 06/15/18 15:30 96.6 F L 115 H 18 103/68 95 06/15/18 11:38 96.3 F L 94 18 96/53 96 Intake and Output 06/15/18 06/16/18 06/16/18 22:59 06:59 14:59 Intake Total 600 Output Total 1000 1600 Balance -400 -1600 Intake: Intake, IV Titration 400 Amount Sodium Chloride 0.9% 1, 400 000 ml @ 75 mls/hr IV . [id number] [facility] Rx#:[id number] Oral 200 Output: Urine 1000 1600 Other: Voiding Method Urinal Urinal Urinal # Voids 1 Weight 81.6 kg On examination is awake alert oriented comfortable and is on nasal cannula oxygen. HEENT exam no JVP neck is supple no facial asymmetry Lungs are clear to auscultation fair air entry bilaterally. Computed tomography scan this chest shows bilateral infiltrates. Heart sounds are unremarkable for any murmur rub gallop he is in atrial fibrillation Abdomen soft nontender no organomegaly. Spleen was not felt although the computed tomography scan shows splenomegaly No flank tenderness Extremity exam reveals minimal edema at ankles. Warm to touch Neurologically awake alert oriented but poor recall of his Combivir medical history Results - Lab Results Most recent lab results Calcium 8.6 mg/dL (8.4-10.2) 06/16/18 05:19 Magnesium 1.9 mg/dL (1.6-2.3) 06/14/18 14:06 06/16/18 05:19 06/16/18 05:19 Assessment and Plan Assessment: Impression 1. Acute kidney injury secondary to combination of nonsteroidals, low blood pressure and possible right hydronephrosis from a kidney stone. Supposedly is going for urological intervention today, a double-J stent is found in the right side if cardiology clears 2. Hyperkalemia secondary to about. 3. Mild non-gap acidosis with bicarb of 19 and anion gap of 12 secondary to acute kidney injury. 4. Anemia with hemoglobin of 8.1 likely secondary to recent hospitalizations and procedures. 5. Recent admission at [facility] for pneumonia as well as bilateral hydronephrosis and had bilateral stents that have been removed. 6. Cause of kidney stones is possibly uric acid stone as he has gout but has not been worked up. 7. Obstructive sleep apnea 8. Chronic atrial fibrillation controlled ventricular response. 9. ITP with splenomegaly and on medications chronically for 6 or 7 years, platelet count is in the 40-80,000 range Recommendation. 1. Hydrate with normal saline at 75 mL an hour. 2. Start sodium bicarb 6 and 50 4 times a day. 3. Workup for liver disease. 4. He will need outpatient follow workup for cause of the kidney stone and further management of the same medically.
--- NOTE | 2018-06-16 13:14 | ECHOF ---
Referral Reason:sob MEASUREMENTS -------- HEIGHT: 170.2 cm WEIGHT: 83.0 kg BP: 96/53 RVIDd: 3.6 cm (< 3.3) IVSd: 1.2 cm (0.6 - 1.1) LVIDd: 5.4 cm (3.9 - 5.3) LVPWd: 1.1 cm (0.6 - 1.1) IVSs: 1.2 cm LVIDs: 4.7 cm LVPWs: 1.5 cm LAESV Index (A-L): 50.34 ml/m Ao Diam: 3.9 cm (2.0 - 3.7) AV Cusp: 1.7 cm (1.5 - 2.6) LA Diam: 4.1 cm (2.7 - 3.8) MV E Nicholas: 0.84 m/s MV DecT: 217 ms MV A Nicholas: 0.01 m/s MV E/A Ratio: 152.95 RAP: 15.00 mmHg RVSP: 58.53 mmHg FINDINGS -------- Atrial fibrillation. This was a technically difficult study with suboptimal views. The left ventricular size is normal. There is mild concentric left ventricular hypertrophy. There is moderate global hypokinesis of LV . Overall left ventricular systolic function is moderately im paired with, an EF between 35 - 40 %. Difficult to estimate ejection fraction due to atrial fibrill ation. The right ventricle is moderately enlarged. LA is severely dilated >40 ml/m2 RA appears enlarged. Aortic valve is trileaflet and is mildly thickened. There is no evidence of aortic regurgitation. There is no evidence of aortic stenosis. Mild mitral annular calcification present. Moderate mitral regurgitation is present. Moderate to severe tricuspid regurgitation present. There is moderate pulmonary hypertension. The right ventricular systolic pressure, as measured by Doppler, is 58.53mmHg. The pulmonic valve was not well visualized. There is no pulmonic regurgitation present. The aortic root size is normal. The inferior vena cava is dilated with no significant inspiratory collapse which is consistent estima maged right atrial pressure of >20 mmHg. There is no pericardial effusion. CONCLUSIONS -------- 1. Atrial fibrillation. 2. This was a technically difficult study with suboptimal views. 3. The left ventricular size is normal. 4. There is mild concentric left ventricular hypertrophy. 5. There is moderate global hypokinesis of LV . 6. Overall left ventricular systolic function is moderately impaired with, an EF between 35 - 40 %. 7. Difficult to estimate ejection fraction due to atrial fibrillation. 8. The right ventricle is moderately enlarged. 9. LA is severely dilated >40 ml/m2 10. RA appears enlarged. 11. Aortic valve is trileaflet and is mildly thickened. 12. Mild mitral annular calcification present. 13. Moderate mitral regurgitation is present. 14. Moderate to severe tricuspid regurgitation present. 15. There is moderate pulmonary hypertension. 16. The pulmonic valve was not well visualized. 17. There is no pulmonic regurgitation present. 18. The aortic root size is normal. 19. The inferior vena cava is dilated with no significant inspiratory collapse which is consistent es timated right atrial pressure of >20 mmHg. 20. There is no pericardial effusion. CEMETERY LABORER: Christiano Leslie RDCS
--- NOTE | 2018-06-16 14:42 | P.PN ---
Subjective Progress Note Date: 06/16/18 This is a 78-year-old gentleman with previous medical history significant for paroxysmal atrial fibrillation, hypertension, renal insufficiency stage III, history of significant alcohol use, ulcerative colitis , idiopathic thrombocytopenia, chronic low back pain with prior laminectomy and fusion, COPD, nicotine dependence, who apparently was some most recently in, and it hospital with pneumonia. He presented here to the hospital with symptoms of shortness of breath, patient was also having some right sided abdominal pain. Patient did have an echocardiogram with Doppler study performed here in 2014 which revealed a normal left ventricular systolic function. EKG on admission here showed atrial fibrillation with a moderately rapid ventricular response. Chest x-ray showed a 4.7 cm mass suspected within the right midlung. Small bilateral pleural effusions. CTA of the chest was performed which revealed pleural effusions with basilar pulmonary infiltrates and atelectasis. No evidence of pulmonary mass. There is a loculated fluid in the right minor fissure that accounts for density in the right midlung. Mediastinotomy adenopathy. Ochoa megaly. Upper abdomen images show splenomegaly, spleen measuring 27 cm, possibility of lymphoma should be considered. Patient was also seen by urology because of flank pain, patient does have history of kidney stones, a CT scan didn't reveal a 1 cm right sided stone. Blood pressure on arrival here 104/50, heart rate 110, 96% on 3 L of oxygen. I pressure this morning 96/50 with a heart rate in the 90s, 96% on 2 L of oxygen. White blood cell count 7.1, hemoglobin 7.9, platelet count 46. Sodium 139, potassium 5.4, BUN 38, creatinine 2.9, creatinine on admission 2.6. Patient said creatinine in August 1.8. Magnesium 1.9. Troponin 0.012. Digoxin level 0.6. BNP level was not obtained. At the time of my examination, patient is lying flat in bed, but does appear to be quite short of breath, he complains of bloating in the abdomen and swelling in his legs, not currently having any flank pain but states that earlier it was quite severe. 06/16/2018 Patient seen and examined this morning, echo is pending. Denies any flank pain today lying flat in bed at the time of my examination. Patient does appear short of breath, although he states this is his usual. Continues to be in atrial fibrillation with moderately rapid ventricular response. We will add verapamil to his medication regime. Creatinine today is 3.0. Dr. Melissa will perform cystoscopy with placement of right double-J catheter for palliation of his obstructive uropathy today. We will obtain a BNP level today. Continue IV Lasix. Repeat chest x-ray tomorrow. Objective - Vital Signs Vital signs: Vital Signs Temp 96.0 F L 06/16/18 12:00 Pulse 120 H 06/16/18 12:00 Resp 18 06/16/18 12:00 BP 111/69 06/16/18 12:00 Pulse Ox 94 L 06/16/18 12:00 Intake & Output 06/15/18 06/16/18 06/16/18 18:59 06:59 18:59 Intake Total 1530 400 Output Total 1300 1600 600 Balance 230 -1600 -200 Weight 83.2 kg 81.6 kg Intake: Intake, IV Titration 1000 400 Amount Sodium Chloride 0.9% 1, 1000 400 000 ml @ 75 mls/hr IV . [id number] [facility] Rx#:[id number] Oral 530 Output: Urine 1300 1600 600 Other: Voiding Method Urinal Urinal Urinal # Voids 1 - Exam PHYSICAL EXAMINATION: GENERAL: 78-year-old gentleman in no acute distress at the time of my examination. HEENT: Head is atraumatic, normocephalic. Pupils equal, round. Sclera anicteric. Conjunctiva are clear. Mucous membranes of the mouth are moist. Neck is supple. There is elevated jugular venous pressure. No carotid bruit is heard. HEART EXAMINATION: Heart S1, S2 normal. No murmur or gallop heard. CHEST EXAMINATION: Lungs reveal bilateral crackles with diminished air entry to the bases . No chest wall tenderness is noted on palpation or with deep breathing. ABDOMEN: Soft, mild generalized tenderness . Bowel sounds are heard. No organomegaly noted. EXTREMITIES: 1+ peripheral pulses with no evidence of peripheral edema and no calf tenderness noted. NEUROLOGIC patient is awake, alert and orientedX3. - Labs CBC & Chem 7: 06/16/18 05:19 06/16/18 05:19 Labs: Abnormal Lab Results - Last 24 Hours (Table) 06/16/18 06/16/18 Range/Units 05:19 05:19 RBC 2.74 L (4.30-5.90) m/uL Hgb 8.1 L (13.0-17.5) gm/dL Hct 25.2 L (39.0-53.0) % RDW 20.9 H (11.5-15.5) % Plt Count 63 L (150-450) k/uL Myelocytes # (Manual) 0.08 H (0) k/uL Carbon Dioxide 20 L (22-30) mmol/L BUN 35 H (9-20) mg/dL Creatinine 3.00 H (0.66-1.25) mg/dL Assessment and Plan Plan: Assessment and plan #1 symptoms of progressively worsening shortness of breath, bibasal infiltrates noted on x-ray, possible pneumonia, possible CHF exacerbation, LV function unknown. Most recent echo showed a normal left ventricular systolic function in 2015. 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 Continue IV Lasix. Check lytes BUN creatinine intake and output and daily weights in the morning. Start the patient on verapamil for more optimal heart rate control. Repeat chest x-ray tomorrow. DNP note has been reviewed, I agree with a documented findings and plan of care. Patient was seen and examined.
--- NOTE | 2018-06-16 14:43 | P.PN ---
Progress Note - Text Progress Note Date: 06/16/18 Patient's echocardiogram with Doppler study has not been reviewed, his overall ejection fraction 34-40%. Moderate mitral regurgitation moderate to severe tricuspid regurgitation, moderate pulmonary hypertension. We will hold off on initiating verapamil and increase his dose of beta perri. No FEI inhibitor at this time because of renal function. DNP note has been reviewed, I agree with a documented findings and plan of care. Patient was seen and examined.
[2018-06-16] MEDS ORDERED: IV FLUID CONTINUATION 1,000 ML IV ONE ×2 (15:10)
[2018-06-16] MEDS ORDERED: VERAPAMIL 40 MG TAB PO SCH (16:00)
[2018-06-16] MEDS ORDERED: fentaNYL (PF) 50 MCG/ML 2 ML AMP ONE (16:11)
[2018-06-16] MEDS ORDERED: MIDAZOLAM 2 MG/2 ML VIAL ONE (16:11)
[2018-06-16] MEDS ORDERED: PROPOFOL 10 MG/ML 20 ML VIAL IV ONE (16:11)
[2018-06-16] MEDS ORDERED: LIDOCAINE 1% INJ 10MG/ML (20 ML MDV) ONE (16:11)
--- NOTE | 2018-06-16 16:17 | P.PN ---
Subjective Progress Note Date: 06/16/18 Principal diagnosis: Bilateral pleural effusion with loculated pocket of fluid within the right minor fissure. 78-year-old male patient got transferred from [facility] because of A. fib RVR and left flank pain. The patient has an extensive history. [id number] [place] [facility] respiratory failure. He had to be intubated and placed on a mechanical ventilator. During the course of the treatment the patient was also found to have nephrolithiasis and bilateral kidney stones with hydronephrosis. He underwent a urologic evaluation where he underwent a double-J stent insertion bilaterally. The stents were Then and ultimately there were removed on outpatient basis at the later stage. On today's evaluation, the patient is in the hospital because of some discomfort along his right flank area. No hematuria. No fever or chills. He has had some worsening shortness of breath and he was found to be in atrial fibrillation with rapid ventricular response. His known to have chronic A. fib and he is on no anticoagulants based on his previous history of ITP. His platelet counts are in the low 50s. No altered mentation. No nausea. No vomiting. No abdominal pain. No headaches. He was seen by urology. A follow- up CAT scan of the chest was done on 06/14/2018 here in our hospital and it showed bilateral pleural effusion that were somewhat loculated. No evidence of any lung masses or tumors. There is some loculated fluid within the minor fissure on the right side and this is located in the right midlung. Some nonspecific enlarged mediastinal lymphadenopathy measuring up to 2 cm in size. The upper abdominal images showing splenomegaly. I also reviewed the CAT scan of the chest abdomen and pelvis that was done and [facility] 24 hours ago and it showed similar findings in the lungs. There patient was found to have a calculus in the right UPJ with evidence of hydronephrosis. His renal function is worse compared to his baseline and is currently having diminished urine output. Creatinine today's at 2.9. The patient is seen again today 06/16/2018 in follow-up on the selective care unit. He is currently awake and alert in no acute distress. Resting fairly comfortably in bed. He is maintaining good O2 saturations in the 90s on 2 L/m per nasal cannula. He's been afebrile. Slightly tachycardic in the 120s. Currently in atrial fibrillation. Not a candidate for anticoagulation due to ITP. Echocardiogram revealed decreased left ventricular systolic function with ejection fraction 35-40%. There is moderate mitral regurgitation., Moderate to severe tricuspid regurgitation, moderate pulmonary hypertension. White count 7.5. Hemoglobin 8.1. Platelet count 63,000. Creatinine 3.00. Bicarb 28. Currently on sodium bicarbonate. The plan is for cystoscopy with placement of a right double-J catheter. Objective - Vital Signs Vital signs: Vital Signs Temp 98.2 F 06/16/18 14:49 Pulse 120 H 06/16/18 14:49 Resp 24 06/16/18 14:49 BP 109/75 06/16/18 14:49 Pulse Ox 95 06/16/18 14:49 Intake & Output 06/15/18 06/16/18 06/16/18 18:59 06:59 18:59 Intake Total 1530 400 Output Total 1300 1600 600 Balance 230 -1600 -200 Weight 83.2 kg 81.6 kg Intake: Intake, IV Titration 1000 400 Amount Sodium Chloride 0.9% 1, 1000 400 000 ml @ 75 mls/hr IV . [id number] [facility] Rx#:[id number] Oral 530 Output: Urine 1300 1600 600 Other: Voiding Method Urinal Urinal Urinal # Voids 1 - Exam Gen. appearance the patient is calm comfortable likely distress laying comfortably in bed Head exam was generally normal. There was no scleral icterus or corneal arcus. Mucous membranes were moist. Neck was supple and without jugular venous distension, thyromegaly, or carotid bruits. Carotids were easily palpable bilaterally. There was no adenopathy. Lungs sounds are diminished in lung bases bilaterally along with some dullness to percussion and the breath sounds are quite diminished in the right lung base Cardiac exam revealed the PMI to be normally situated and sized. The rhythm was irregular and no extrasystoles were noted during several minutes of auscultation. The first and second heart sounds were normal and physiologic splitting of the second heart sound was noted. Overall heart sounds are quite distant and there is irregular secondary atrial fibrillation Abdominal exam revealed normal bowel sounds. The abdomen was soft, non-tender, and without masses, organomegaly, or appreciable enlargement of the abdominal aorta. Examination of the extremities revealed easily palpable radial, femoral and pedal pulses. There was no cyanosis, clubbing or edema. Examination of the skin revealed no evidence of significant rashes, suspicious appearing nevi or other concerning lesions. Neurologically awake and alert and there is no focal neurological deficits. - Labs CBC & Chem 7: 06/16/18 05:19 06/16/18 05:19 Labs: Abnormal Lab Results - Last 24 Hours (Table) 06/16/18 06/16/18 Range/Units 05:19 05:19 RBC 2.74 L (4.30-5.90) m/uL Hgb 8.1 L (13.0-17.5) gm/dL Hct 25.2 L (39.0-53.0) % RDW 20.9 H (11.5-15.5) % Plt Count 63 L (150-450) k/uL Myelocytes # (Manual) 0.08 H (0) k/uL Carbon Dioxide 20 L (22-30) mmol/L BUN 35 H (9-20) mg/dL Creatinine 3.00 H (0.66-1.25) mg/dL Assessment and Plan Assessment: Assessment 1 bilateral pleural effusion with loculated pocket of fluid within the right minor fissure. The pleural effusions are small and there are probably related to a recent/previous pneumonia. Note that the patient was hospitalized and he was intubated and placed on mechanical ventilator 2 for complications of pneumonia. Would like to obtain previous chest x-ray or CAT scan images from [facility] for comparison. The pleural fluids are small and they're not amenable for thoracentesis at this point. No active signs of ongoing pneumonia for now 2 nephrolithiasis with a kidney stone obstructing the right UPJ with secondary hydronephrosis, the plan is for cystoscopy with placement of a double-J catheter 3 acute kidney injury with a creatinine of 2.0 4 COPD 5 chronic dyspnea secondary to above 6 obstructive sleep apnea 7 chronic anemia, anemia of chronic disease 8 ITP with chronically low platelet counts on Eltrombopag in the outpatient setting 9 acid reflux 10 chronic atrial fibrillation with rapid ventricular response at a time of admission, improving and the patient is on no anticoagulants due to the ITP 11 remote history of pneumonia requiring chest tube insertion and possibly for parapneumonic effusions back in 2014. This was also a complication of a fall and broken ribs 12 the liver's disease of the liver 13 history of diverticulosis and previous history of diverticulitis 14 degenerative arthritis 15 gout 16 chronic back pain Plan: The patient was seen and evaluated by Dr. Lawrence. He is currently stable from the pulmonary standpoint. We'll repeat a chest x-ray in the a.m. The plan is for cystoscopy and placement of a right double-J catheter today. We will continue to follow and make further recommendations based on his clinical status. I, the cosigning physician, performed a history & physical examination of the patient. Lungs sounds with crackles in the posterior bases. Maintaining good O2 saturations in the 90s on 2 L/m per nasal cannula. I discussed the assessment and plan of care with my nurse practitioner, Anai Weir. I attest to the above note as dictated by her.
--- NOTE | 2018-06-16 16:18 | PN ---
PROGRESS NOTE DATE OF SERVICE: 06/16/2018. This 78-year-old gentleman who was admitted with atrial fibrillation with fast ventricular rate, also bibasilar infiltrate and pneumonia too. The patient also had renal failure. The creatinine today is at 3 and the patient has been evaluated by multiple consultants including Nephrology, Urology and Cardiology and Nephrology has recommended continued hydration and workup for the liver disease also. The patient also had elevated bilirubin. NT proBNP is also elevated. The ejection fraction found to be 30-40% with moderate mitral regurgitation, severe tricuspid regurgitation. No FEI inhibitors because of renal function. A 2D echo showed findings as above. PAST MEDICAL HISTORY: Reviewed. REVIEW OF SYSTEMS: CARDIOVASCULAR: No angina. RESPIRATORY: As mentioned. GI: As mentioned earlier. : No dysuria. CURRENT MEDICATIONS: Reviewed and include: 1. DuoNeb q.i.d. and p.r.n. 2. Xanax 0.5 t.i.d. 3. Aspirin 81 mg. 4. Balsalazide 2.2 mg p.o. t.i.d. 5. Symbicort 80/4.5 two puffs b.i.d. 6. Lasix 40 mg IV b.i.d. 7. Naprosyn 37.5 mg p.o. t.i.d. 8. Dilaudid 0.5 mg. 9. Imdur 20 mg p.o. t.i.d. 10.Melatonin 3 mg q.h.s. 11.Naproxen 500 mg. 12.Multivitamins 1 p.o. daily. 13.Narcan 0.2 p.r.n. 14.Lovaza. 15.Protonix 40 mg. 16.Sodium bicarb. 17.Flomax 0.4 daily. PHYSICAL EXAM: Patient is alert, oriented x3. Pulse 120, blood pressure 109/75, respiration 24, temperature 98.2, pulse ox 94% on 3 L. HEENT: Conjunctivae normal. Oral mucosa moist. NECK: No jugular venous distention. No carotid bruit. NO lymph node enlargement. CARDIOVASCULAR: S1, S2. RESPIRATORY: Breath sounds diminished in the bases. ABDOMEN: Soft, mild diffuse distention, mild diffuse tenderness. No guarding, no mass palpable. LEGS: No edema. NERVOUS SYSTEM: Higher functions as mentioned. Moves all four limbs. No focal deficits. LYMPHATICS: No lymphadenopathy in the neck, axillae, groin. SKIN: No ulcer, rash, bleeding. LAB STUDIES: WBC 7, hemoglobin is 8.1, platelets 63. Creatinine is 3 and NT-proBNP 17,300. ASSESSMENT: 1. Atrial fibrillation with fast ventricular rate, present on admission. 2. Bibasilar infiltrate with possible bibasilar pneumonia. 3. Acute renal failure possibly prerenal acute renal failure. 4. Possible congestive heart failure acute exacerbation, acute on chronic systolic dysfunction, ejection fraction 35-40%. 5. Possible urolithiasis. 6. Thrombocytopenia, possibly ITP. 7. History of chronic obstructive pulmonary disease. 8. Gastroesophageal reflux disease. 9. Chronic liver disease. 10.History of degenerative joint disease. 11.History of renal disease and sleep apnea. 12.History of colitis in the past. 13.History of renal stones. 14.History of back surgery. 15.Degenerative joint disease. 16.History of anxiety. 17.History of nicotine dependence. 18.FULL CODE. RECOMMENDATIONS AND DISCUSSION: I recommend to continue current management, continue monitoring and continue symptomatic treatment. Otherwise, continue to monitor. Closely follow. We will monitor the renal functions. The patient is on IV Lasix currently. Otherwise, Urology is also following the patient with possibly cystoscopy and double-J catheter placement. The prognosis is guarded. Further recommendations to follow. MMODL / IJN: [id number] /
[2018-06-16] MEDS: SODIUM BICARBONATE TAB 650 MG TAB PO SCH ×3 (16:41→20:28)
--- NOTE | 2018-06-16 16:48 | P.OP ---
Date of Procedure: 06/16/18 Preoperative Diagnosis: Right hydronephrosis secondary to obstructive calculus at ureteropelvic junction Postoperative Diagnosis: Right hydronephrosis secondary to obstructive calculus at ureteropelvic junction Procedure(s) Performed: Cystosvcopy and placement of right JJ catheter Anesthesia: JESSICA Surgeon: Reginald Javed Estimated Blood Loss (ml): 0 Pathology: none sent Condition: stable Disposition: PACU Indications for Procedure: The patient is a 78-year-old male with a history of uric acid urolithiasis who developed right flank pain 4 days ago. He also has had increasing shortness of breath secondary to atrial fibrillation. Computed tomography scan of the abdomen identified a 10 mm obstructive calculus at the right ureteropelvic junction. The patient's creatinine has gradually increased and is currently 3.0. Palliation of the patient's renal failure is planned with placement of a right double-J catheter. Description of Procedure: The patient was taken to the operating suite where adequate intravenous sedation was given. He was placed in the dorsal lithotomy position with his legs suspended from padded Maco stirrups. Sequential pneumatic stockings were applied to the lower legs. The genitalia was prepped with Betadine solution and draped in a sterile fashion. The 19-Sudanese cystoscope sheath with 30 lens was passed through the urethra under direct vision. The anterior urethra was free of inflammatory lesion tumor and stricture. Prostatic urethra showed evidence of moderate lateral lobe enlargement. The bladder was examined. Both ureteral orifices were of normal location and configuration. A 1 mm calculus was noted at the right ureteral meatus. A 0.035 Glidewire was then advanced through the right ureteral orifice and up to the region of the right kidney using fluoroscopy for guidance. A 6-Sudanese by 24 cm double-J catheter was advanced over the Glidewire and positioned so that the proximal end coiled in the region of the renal pelvis and the distal and coiled in the bladder. Clear urine drained from the double-J catheter. The bladder was reexamined and was free of tumor foreign body and diverticulum. Cystoscope was withdrawn and the procedure was terminated. Patient tolerated the procedure well and left the operative room awake and in satisfactory condition.
[2018-06-16] MEDS: METOPROLOL SUCCINATE (ER) 100 MG TAB.ER.24H PO SCH (17:40)
[2018-06-16] MEDS ORDERED: HYDROmorphone 2 MG TAB PO PRN (19:22)
[2018-06-16] MEDS: MELATONIN 3 MG TABLET PO SCH (21:05)
[2018-06-17 06:14] VITALS: RESP 24
[2018-06-17] MEDS: PANTOPRAZOLE 40 MG TABLET PO SCH (06:19)
[2018-06-17] MEDS: SODIUM CHLORIDE 0.9% 1,000 ML IV SCH (06:27)
[2018-06-17 06:48] LABS: Anisocytosis Moderate; HCT 27.4 % (39.0-53.0); Hypochromasia Slight; MCH 30.1 pg (25.0-35.0); MCV 91.4 fL (80.0-100.0); Mean Platelet Volume 16.2; RDW 20.2 % (11.5-15.5); WBC 10.2 k/uL (3.8-10.6)
[2018-06-17] MEDS: IPRATROPIUM-ALBUTEROL 3 ML NEB INHALATION SCH ×2 (06:52→11:04)
[2018-06-17 06:59] LABS: Platelet Count 52 k/uL (150-450)
[2018-06-17] MEDS: SYMBICORT 80-4.5 MCG INHALER INHALATION SCH (07:04)
[2018-06-17 07:53] LABS: Calcium 8.4 mg/dL (8.4-10.2)
[2018-06-17 07:54] LABS: Potassium 4.6 mmol/L (3.5-5.1)
[2018-06-17 08:07] LABS: Lymphocytes # (M) 1.12 k/uL (1.0-4.8); Monocytes # (M) 1.43 k/uL (0-1.0); Neutrophils # (M) 7.65 k/uL (1.3-7.7); Neutrophils % (M) 75 %; Nucleated Red Blood Cells 0 /100 WBC (0-0); Total Cells Counted 100
[2018-06-17 08:08] LABS: Large Platelets Present; Poikilocytosis (M) Present
--- NOTE | 2018-06-17 08:12 | XR ---
EXAMINATION TYPE: XR chest 1V DATE OF EXAM: 06/17/2018 COMPARISON: 06/14/2018 INDICATION: Previous abnormal, pleural effusion TECHNIQUE: Single frontal view of the chest is obtained. FINDINGS: The heart size is enlarged. The pulmonary vasculature is normal. The opacity through the right midlung is improving and may be fluid within the minor fissure. Continu ed follow-up to clearing is recommended. Small pleural effusion at the right base is again evident. T here is blunting the left costophrenic angle which is stable. IMPRESSION: 1. Persistent bilateral small pleural effusions. 2. Improving density within the right midlung. Continued follow-up is recommended.
--- NOTE | 2018-06-17 08:41 | FL ---
Fluoroscopy INDICATION: Pain FINDINGS: Fluoroscopy time: 6 seconds. Images obtained: 1. IMPRESSIONS: 1. Documentation of fluoroscopy.
[2018-06-17] MEDS: BALSALAZIDE DISODIUM 750 MG CAPSULE PO SCH (09:31)
[2018-06-17] MEDS: ASPIRIN 81 MG PO SCH (09:31)
[2018-06-17] MEDS: hydrALAZINE HCL 25 MG TAB PO SCH (09:32)
[2018-06-17] MEDS: ELTROMBOPAG 75 MG PO SCH (09:32)
[2018-06-17] MEDS: FUROSEMIDE 10 MG/ML 4 ML VIAL IV SCH (09:32)
[2018-06-17] MEDS: SODIUM BICARBONATE TAB 650 MG TAB PO SCH (09:33)
[2018-06-17] MEDS: METOPROLOL SUCCINATE (ER) 100 MG TAB.ER.24H PO SCH (09:33)
[2018-06-17] MEDS: LOVAZA 1 GM PO SCH (09:33)
[2018-06-17] MEDS: ISOSORBIDE DINITRATE 20 MG TAB PO SCH (09:33)
[2018-06-17] MEDS: MULTIVITAMINS, THERA 1 EACH TAB PO SCH (09:33)
[2018-06-17] MEDS: TAMSULOSIN 0.4 MG CAP.ER.24H PO SCH (09:34)
[2018-06-17 09:40] VITALS: BP 107/65; PULSE 120; TEMP 97.2
--- NOTE | 2018-06-17 10:14 | P.PN ---
Subjective Progress Note Date: 06/17/18 this is a 78-year-old male seen in consultation because of acute kidney injury from a combination of right-sided hydronephrosis from a kidney stone , nonsteroidal use and hypotension. He was initially admitted recently to [facility] from where he was transferred here for further cystoscopy and stent placement. additionally recently just prior to this admission he was in [facility] for a prolonged hospitalization for pneumonia and bilateral hydronephrosis with bilateral stent placement and removal subsequently. 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 is also known with atrial fibrillation. And on this admission his liver enzymes are up. He underwent cystoscopy and stent placement yesterday. He denies any fever chills abdominal pain frequency dysuria or hematuria. No back pain Objective - Vital Signs Vital signs: Vital Signs Temp 97.2 F L 06/17/18 08:00 Pulse 120 H 06/17/18 08:00 Resp 24 06/17/18 04:00 BP 107/65 06/17/18 08:00 Pulse Ox 93 L 06/17/18 08:00 Intake & Output 06/16/18 06/17/18 06/17/18 18:59 06:59 18:59 Intake Total 600 375 240 Output Total 750 950 Balance -150 -575 240 Weight 81.5 kg Intake: IV 200 375 Sodium Chloride 0.9% 1, 375 000 ml @ 75 mls/hr IV . [id number] [facility] Rx#:[id number] Intake, IV Titration 400 Amount Sodium Chloride 0.9% 1, 400 000 ml @ 75 mls/hr IV . [id number] [facility] Rx#:[id number] Oral 240 Output: Urine 750 950 Estimated Blood Loss 0 Other: Voiding Method Urinal # Voids 1 on examination the awake alert oriented 1. HEENT exam no JVP neck is supple no facial asymmetry Lungs are clear to auscultation good air entry bilaterally Heart sounds are unremarkable for any murmur rub gallop Abdomen soft nontender no renal angle tenderness Extremity examination reveals no edema Neurologically awake alert oriented. - Labs CBC & Chem 7: 06/17/18 06:26 06/17/18 06:26 Labs: Abnormal Lab Results - Last 24 Hours (Table) 06/17/18 06/17/18 Range/Units 06:26 06:26 RBC 3.00 L (4.30-5.90) m/uL Hgb 9.0 L (13.0-17.5) gm/dL Hct 27.4 L (39.0-53.0) % RDW 20.2 H (11.5-15.5) % Plt Count 52 L (150-450) k/uL Monocytes # (Manual) 1.43 H (0-1.0) k/uL Chloride 109 H (98-107) mmol/L Carbon Dioxide 17 L (22-30) mmol/L BUN 34 H (9-20) mg/dL Creatinine 2.88 H (0.66-1.25) mg/dL Assessment and Plan Assessment: Impression 1. Acute kidney injury secondary to combination of nonsteroidals, low blood pressure and right hydronephrosis from a kidney stone. had cystoscopy and stent placement on 06/16/2018 yesterday. Asymptomatic. creatinine is down slightly from 3-2.8 this morning 2. Hyperkalemia secondary to acute kidney injury, as listed about. Resolved with potassium down to 4.6. 3. Mild non-gap acidosis and gap acidosis. etiology is acute kidney injury. Acidosis remains bicarb is down to 17 with a gap up to 15. 4. Anemia with hemoglobin of 8.1 likely secondary to recent hospitalizations and procedures. hemoglobin this morning is up to 9 5. Recent admission at [facility] for pneumonia as well as bilateral hydronephrosis and had bilateral stents that have been removed. 6. Cause of kidney stones is possibly uric acid stone as he has gout but has not been worked up. 7. Obstructive sleep apnea 8. Chronic atrial fibrillation controlled ventricular response. 9. ITP with splenomegaly and on medications chronically for 6 or 7 years, platelet count is in the 40-80,000 range Recommendation. 1. patient insists on being discharged. he should be followed up closely in our office in [place],to ensure recovery of renal function and workup for cause of kidney stone. 2.In the meantime continue sodium bicarbonate 654 tablets a day. 3. he needs to have his liver disease assessed. 4. he is at risk of worsening renal function in the future because of multiple kidney stones
--- NOTE | 2018-06-17 18:10 | DS ---
DISCHARGE SUMMARY FINAL DIAGNOSES: 1. Atrial fibrillation with fast ventricular rate present on admission. 2. Bibasilar infiltrate with possible bibasilar pneumonia. 3. Bibasilar pleural effusion. 4. Acute renal failure possibly prerenal acute renal failure. 5. Congestive heart failure, acute exacerbation. Acute on chronic systolic dysfunction Ejection fraction 35-40 percent. 6. Urolithiasis status post cystoscopy and UVJ catheter placement. 7. Multiple other medical issues. DISCHARGE DISPOSITION: The patient left the hospital AGAINST MEDICAL ADVICE. HISTORY OF PRESENT ILLNESS: This 78-year-old gentleman with a past medical history of multiple medical problems, admitted with atrial fibrillation, bibasilar infiltrate, pleural effusion, CHF and urolithiasis and multiple other medical problems. Dr. Javed performed cystoscopy and UVJ stenting but however Dr. Lawrence and multiple other consultants are following the patient. However, the patient was not willing to stay in the hospital and left the hospital AGAINST MEDICAL ADVICE. Prognosis remains extremely guarded throughout the hospital stay. Please refer to refer to the previous progress notes and staff notes for further details. MMODL / IJN: [id number] /
--- NOTE | 2018-06-17 20:46 | P.PN ---
Progress Note - Text Progress Note Date: 06/17/18 The patient says he had no right flank pain following placement of the right JJ catheter. His urine is grossly clear. BUN/Cr has fallen slightly to 34/2.8. I discussed right ureteroscopy with lithotripsy in a few weeks provided the patient can get his atrial fib under better control. Unfortunately he elected to sign himself out later this morning so he will need to follow up with his religious education director as an outpatient. He will also try and get records from his urologic consultation and surgery at [facility] from earlier this summer.
== END 2018-06-17 11:18 | disposition left against medical advice (07) | DRG 308 ==
LOC: EC 13:39 → 6SEL 15:25
PROVIDERS: ADMIT Hospitalist; ATTEND Hospitalist
PROC: 0T768DZ Dilation of Right Ureter with Intraluminal Device, Via Natural or Artificial Opening Endoscopic (ICD-10-PCS; principal; 2018-06-16 09:00)
DX: I48.0 Paroxysmal atrial fibrillation (principal); I50.23 Acute on chronic systolic (congestive) heart failure; J18.9 Pneumonia, unspecified organism; D69.3 Immune thrombocytopenic purpura; E87.2 Acidosis; I13.0 Hypertensive heart and chronic kidney disease with heart failure and stage 1 through stage 4 chronic kidney disease, or unspecified chronic kidney disease; J44.0 Chronic obstructive pulmonary disease with (acute) lower respiratory infection; J98.11 Atelectasis; N13.2 Hydronephrosis with renal and ureteral calculous obstruction; N17.9 Acute kidney failure, unspecified; D63.8 Anemia in other chronic diseases classified elsewhere; E87.5 Hyperkalemia; F17.200 Nicotine dependence, unspecified, uncomplicated; G47.33 Obstructive sleep apnea (adult) (pediatric); Z99.89 Dependence on other enabling machines and devices; G89.29 Other chronic pain; I08.1 Rheumatic disorders of both mitral and tricuspid valves; I27.20 Pulmonary hypertension, unspecified; I48.2 Chronic atrial fibrillation; K21.9 Gastro-esophageal reflux disease without esophagitis; N18.3 Chronic kidney disease, stage 3 (moderate); K76.9 Liver disease, unspecified; M10.9 Gout, unspecified; M19.90 Unspecified osteoarthritis, unspecified site; Z82.49 Family history of ischemic heart disease and other diseases of the circulatory system; Z87.01 Personal history of pneumonia (recurrent); Z87.442 Personal history of urinary calculi; Z99.81 Dependence on supplemental oxygen; Z79.891 Long term (current) use of opiate analgesic; Z79.899 Other long term (current) drug therapy; Z79.01 Long term (current) use of anticoagulants
CPT/HCPCS: 36415; 71045; 71250; 80048; 80053; 81001; 82550; 82553; 83735; 83880; 84484; 85025; 85610; 85730; 86850; 86900; 86901; 93005; 93306; 94640; 94760; 99285

== ENCOUNTER 2018-06-27 02:03 | Inpatient (IN) | payer MEDICARE, OTHER ==
--- NOTE | 2018-06-27 02:19 | ED ---
General Adult HPI - General Stated complaint: DANNIE Time Seen by Provider: 06/27/18 02:05 Source: patient, EMS Mode of arrival: EMS Limitations: no limitations - History of Present Illness Initial comments: Scott Barnett is a 78-year-old male with extensive past medical history is documented below who presents to the ED via EMS as a transfer from an outside hospital. Per the physician at the outside hospital patient arrived to their facility in extremis, and respiratory distress. Patient was aggressively treated for CHF, COPD and pneumonia. He received a Medrol and DuoNeb's for COPD, IV Bumex for CHF. IV Cardizem for persistent tachycardia with no improvement in his tachycardia the patient was also placed on BiPAP with significant improvement in his respiratory status.. He also received Zosyn for middle lobe pneumonia. Patient outside labs had some significant abnormalities including a leukocytosis of 17.3, with left shift. Mild hyperkalemia with potassium of 5.4 , acute kidney injury with a creatinine of 2.3, BNP elevation to greater than 20 ,000 lactic acidosis of 2.5. Patient remained on BiPAP and was transferred to our facility for admission. Patient did with her steno typist Dr. Brito in the past. - Related Data Home Medications Medication Instructions Recorded Confirmed RX: Loratadine [Claritin] 10 mg PO DAILY 03/23/15 06/14/18 RX: Metoprolol Succinate [Toprol 50 mg PO DAILY 03/23/15 06/14/18 XL] RX: Fluticasone/Salmeterol [Advair 1 puff INHALATION RT-BID 04/16/15 06/14/18 250-50 Diskus] RX: Aspirin EC [Ecotrin Low Dose] 81 mg PO DAILY 09/03/17 06/14/18 RX: Eltrombopag Olamine [Promacta] 75 mg PO DAILY 09/03/17 06/14/18 RX: Tamsulosin HCl [Flomax] 0.4 mg PO DAILY 09/03/17 06/14/18 Apriso 375 Mg 24hr Cap 1,500 mg PO HS 06/14/18 06/14/18 Bidil 20-37.5mg 1 tab PO TID 06/14/18 06/14/18 Furosemide [Lasix] 20 mg PO DAILY 06/14/18 06/14/18 Ipratropium-Albuterol Nebulize 3 ml INHALATION RT-QID 06/14/18 06/14/18 [Duoneb 0.5 mg-3 mg/3 ml Soln] Multivitamins, Thera [Multivitamin 1 tab PO DAILY 06/14/18 06/14/18 (formulary)] [place]-3 Acid Ethyl Esters [Lovaza] 1 gm PO DAILY 06/14/18 06/14/18 Pantoprazole Sodium [Protonix] 40 mg PO DAILY 06/14/18 06/14/18 Potassium Chloride ER [K-Dur 20] 20 meq PO DAILY 06/14/18 06/14/18 Allergies Allergy/AdvReac Type Severity Reaction Status Date / Time acetaminophen Allergy Unknown Verified 06/14/18 14:44 [From Darvocet-N] codeine Allergy Unknown Verified 06/14/18 14:44 ibuprofen [From Motrin] Allergy Unknown Verified 06/14/18 14:44 Iodinated Contrast- Oral and Allergy Unknown Verified 06/14/18 14:44 IV Dye [Iodinated Contrast Media - IV Dye] propoxyphene Allergy Unknown Verified 06/14/18 14:44 [From Darvocet-N] hydromorphone HCl AdvReac Hallucinati Verified 06/14/18 14:44 [From Dilaudid] ons morphine AdvReac Hallucinati Verified 06/14/18 14:44 ons Review of Systems ROS Statement: Those systems with pertinent positive or pertinent negative responses have been documented in the HPI. ROS Other: All systems not noted in ROS Statement are negative. Past Medical History Past Medical History: Atrial Fibrillation, Blood Disorder, Heart Failure, COPD, GERD/Reflux, Liver Disease, Osteoarthritis (OA), Pneumonia, Renal Disease, Sleep Apnea/CPAP/BIPAP Additional Past Medical History / Comment(s): idiopathic thrombocytepenia w/ splenomegaly,low plaelets monitored by retail store associate diverticulitis, ITP, ulcers in past,colitis,ddd,gout low back pain, kidney stones feb had taken out 2014 in [facility] (liver count goes up and down) ( 03/31/15 fell broke ribs broke 2 toes and ended having pneumonia and was on life support in ICU) chest tube about 3 years ago for bilateral pneumonia, cataract in one eye "not sure which one" History of Any Multi-Drug Resistant Organisms: None Reported Past Surgical History: Back Surgery, Cholecystectomy, Heart Catheterization, Heart Catheterization With Stent, Orthopedic Surgery Additional Past Surgical History / Comment(s): cardiac ablation, , heart catheterization 2011, cholecystectomy, cystoscopy with J stent placement.rotator cuff, neck surgery, lithotripsy,colonoscopy,jim kidney stents. Past Anesthesia/Blood Transfusion Reactions: No Reported Reaction Additional Past Anesthesia/Blood Transfusion Reaction / Comment(s): clausterphobic. pt stated has recieved platelets in past. Past Psychological History: Anxiety Smoking Status: Former smoker Past Alcohol Use History: None Reported Past Drug Use History: None Reported - Past Family History Mother Family Medical History: CVA/TIA Father Family Medical History: Coronary Artery Disease (CAD), Myocardial Infarction ([place] ) Brother(s) Family Medical History: CVA/TIA Sister(s) Family Medical History: No Reported History Daughter(s) Family Medical History: No Reported History Son(s) Family Medical History: No Reported History General Exam - General Exam Comments Initial Comments: GENERAL: Chronically ill-appearing, appears jaundiced, tachypneic, mildly diaphoretic HENT: Normocephalic, Atraumatic. Neck is soft and supple. No significant lymphadenopathy is noted. EYES: Scleral icterus PULMONARY: Tachypnea with good air movement in all lung [place] CARDIOVASCULAR: Tachycardia, no murmur rub or gallop ABDOMEN: Mild abdominal distention, no tenderness, belly breathing SKIN: Skin appears jaundiced NEUROLOGIC: Patient is alert and oriented x3. MUSCULOSKELETAL: No lower extremity swelling or edema. No calf tenderness. LYMPHATICS: No significant lymphadenopathy is noted PSYCHIATRIC: Normal psychiatric evaluation. Limitations: no limitations Limitations: no limitations Course Vital Signs 06/27/18 06/27/18 02:06 02:33 Temperature 97.4 F L Pulse Rate 119 H Respiratory 36 H 26 H Rate Blood Pressure 102/71 O2 Sat by Pulse 95 Oximetry EKG Findings - EKG Comments: EKG Findings:: EKG obtained at 2:28 AM, rate is 108, and is wide-complex irregularly irregular with no obvious P waves. Review of previous EKG reveals atrial fibrillation with a left bundle branch block, morphology is not significantly changed from previous. Medical Decision Making - Medical Decision Making Patient care was discussed with the ER physician at [facility] prior to transfer Patient had arrived at their facility in respiratory distress, appeared to be in extremis Workup is suggestive of CHF as well as COPD exacerbation as well as a right middle lobe pneumonia Respiratory therapy was alerted of the patient's arrival, BiPAP available at bedside Patient was appropriately treated at that facility, has remained on CPAP or BiPAP during transport arrives to us persistently tachycardic, tachypneic with systolic blood pressures in the high 90s to low 100s during transport Labs reviewed - no significant change from previous at outside hospital Patient care discussed with Dr. Watters who agrees with plan for admission, admission orders placed. - Lab Data Result diagrams: 06/27/18 02:15 06/27/18 02:15 Lab Results 06/27/18 06/27/18 06/27/18 Range/Units 02:15 02:15 02:15 WBC 10.8 H (3.8-10.6) k/uL RBC 3.20 L (4.30-5.90) m/uL Hgb 9.5 L (13.0-17.5) gm/dL Hct 29.1 L (39.0-53.0) % MCV 90.8 (80.0-100.0) fL MCH 29.7 (25.0-35.0) pg MCHC 32.7 (31.0-37.0) g/dL RDW 20.5 H (11.5-15.5) % Plt Count 123 L D (150-450) k/uL Neutrophils % (Manual) 90 % Band Neutrophils % 2 % Lymphocytes % (Manual) 5 % Monocytes % (Manual) 3 % Neutrophils # (Manual) 9.90 H (1.3-7.7) k/uL Lymphocytes # (Manual) 0.54 L (1.0-4.8) k/uL Monocytes # (Manual) 0.32 (0-1.0) k/uL Nucleated RBCs 0 (0-0) /100 WBC Manual Slide Review Performed Large Platelets Present Hypochromasia Slight Anisocytosis Moderate PT (9.0-12.0) sec INR (<1.2) APTT (22.0-30.0) sec Sodium 138 (137-145) mmol/L Potassium 5.3 H (3.5-5.1) mmol/L Chloride 101 (98-107) mmol/L Carbon Dioxide 20 L (22-30) mmol/L Anion Gap 17 mmol/L BUN 38 H (9-20) mg/dL Creatinine 2.40 H (0.66-1.25) mg/dL Est GFR (CKD-EPI)AfAm 29 (>60 ml/min/1.73 sqM) Est GFR (CKD-EPI)NonAf 25 (>60 ml/min/1.73 sqM) Glucose 141 H (74-99) mg/dL Calcium 9.2 (8.4-10.2) mg/dL Magnesium 2.1 (1.6-2.3) mg/dL Total Bilirubin 2.5 H (0.2-1.3) mg/dL AST 18 (17-59) U/L ALT 17 L (21-72) U/L Alkaline Phosphatase 79 (38-126) U/L Troponin I (0.000-0.034) ng/mL NT-Pro-B Natriuret Pep 26203 pg/mL Total Protein 7.4 (6.3-8.2) g/dL Albumin 3.8 (3.5-5.0) g/dL 06/27/18 06/27/18 Range/Units 02:15 02:15 WBC (3.8-10.6) k/uL RBC (4.30-5.90) m/uL Hgb (13.0-17.5) gm/dL Hct (39.0-53.0) % MCV (80.0-100.0) fL MCH (25.0-35.0) pg MCHC (31.0-37.0) g/dL RDW (11.5-15.5) % Plt Count (150-450) k/uL Neutrophils % (Manual) % Band Neutrophils % % Lymphocytes % (Manual) % Monocytes % (Manual) % Neutrophils # (Manual) (1.3-7.7) k/uL Lymphocytes # (Manual) (1.0-4.8) k/uL Monocytes # (Manual) (0-1.0) k/uL Nucleated RBCs (0-0) /100 WBC Manual Slide Review Large Platelets Hypochromasia Anisocytosis PT 13.7 H (9.0-12.0) sec INR 1.5 H (<1.2) APTT 29.4 (22.0-30.0) sec Sodium (137-145) mmol/L Potassium (3.5-5.1) mmol/L Chloride (98-107) mmol/L Carbon Dioxide (22-30) mmol/L Anion Gap mmol/L BUN (9-20) mg/dL Creatinine (0.66-1.25) mg/dL Est GFR (CKD-EPI)AfAm (>60 ml/min/1.73 sqM) Est GFR (CKD-EPI)NonAf (>60 ml/min/1.73 sqM) Glucose (74-99) mg/dL Calcium (8.4-10.2) mg/dL Magnesium (1.6-2.3) mg/dL Total Bilirubin (0.2-1.3) mg/dL AST (17-59) U/L ALT (21-72) U/L Alkaline Phosphatase (38-126) U/L Troponin I 0.015 (0.000-0.034) ng/mL NT-Pro-B Natriuret Pep pg/mL Total Protein (6.3-8.2) g/dL Albumin (3.5-5.0) g/dL Critical Care Time Critical Care Time: Yes Total Critical Care Time: 15 Disposition Clinical Impression: Congestive heart failure, Acute pulmonary edema, Adult respiratory distress syndrome, Acute exacerbation of chronic obstructive airways disease, Acute respiratory failure Disposition: ADMITTED IP TO THIS HOSP Condition: Serious Referrals: Niels Hackett MD [Primary Care Provider] - 1-2 days
[2018-06-27 02:30] LABS: Anisocytosis Moderate; HCT 29.1 % (39.0-53.0); HGB 9.5 gm/dL (13.0-17.5); Hypochromasia Slight; MCH 29.7 pg (25.0-35.0); MCHC 32.7 g/dL (31.0-37.0); MCV 90.8 fL (80.0-100.0); Mean Platelet Volume 16.7; RDW 20.5 % (11.5-15.5); WBC 10.8 k/uL (3.8-10.6)
[2018-06-27 02:31] LABS: Platelet Count 123 k/uL (150-450)
[2018-06-27 02:41] LABS: Albumin 3.8 g/dL (3.5-5.0); Calcium 9.2 mg/dL (8.4-10.2); Magnesium 2.1 mg/dL (1.6-2.3); Potassium 5.3 mmol/L (3.5-5.1); Total Bilirubin 2.5 mg/dL (0.2-1.3); Total Protein 7.4 g/dL (6.3-8.2)
[2018-06-27 02:43] LABS: INR 1.5 (<1.2); Partial Thromboplastin Time 29.4 sec (22.0-30.0); Prothrombin Time 13.7 sec (9.0-12.0)
[2018-06-27 02:56] LABS: Band Neutrophils % 2 %; Large Platelets Present; Lymphocytes # (M) 0.54 k/uL (1.0-4.8); Monocytes # (M) 0.32 k/uL (0-1.0); Neutrophils % (M) 90 %; Nucleated Red Blood Cells 0 /100 WBC (0-0); Total Cells Counted 100
[2018-06-27] MEDS ORDERED: NALOXONE 0.4 MG/ML 1 ML VIAL IV PRN (03:11)
[2018-06-27] MEDS ORDERED: IPRATROPIUM-ALBUTEROL 3 ML NEB INHALATION PRN (03:34)
[2018-06-27 03:43] LABS: Appearance,Urine Cloudy (Clear); Bacteria,Urine Rare /hpf; Bilirubin,Urine Negative (Negative); Blood,Urine Large (Negative); Color,Urine Yellow; Glucose,Urine (UA) Negative (Negative); Hyaline Casts,Urine 3 /lpf (0-2); Ketones,Urine Negative (Negative); Leukocyte Esterase,Urine Trace (Negative); Mucus,Urine Rare /hpf; Nitrite,Urine Negative (Negative); Protein,Urine Trace (Negative); RBC,Urine >182 /hpf (0-5); Specific Gravity,Urine 1.009 (1.001-1.035); Urobilinogen,Urine <2.0 mg/dL (<2.0); WBC,Urine 13 /hpf (0-5)
[2018-06-27 04:09] LABS: Glucose,Whole Blood 163 mg/dL (75-99)
[2018-06-27 05:21] LABS: Anisocytosis Moderate; HCT 27.6 % (39.0-53.0); Hypochromasia Slight; MCH 29.9 pg (25.0-35.0); MCHC 32.8 g/dL (31.0-37.0); MCV 91.3 fL (80.0-100.0); Macrocytosis Slight; Mean Platelet Volume 14.5; Platelet Count 125 k/uL (150-450); RBC 3.02 m/uL (4.30-5.90); RDW 20.8 % (11.5-15.5); WBC 9.7 k/uL (3.8-10.6)
[2018-06-27 05:26] LABS: Calcium 9.1 mg/dL (8.4-10.2); Phosphorus 6.6 mg/dL (2.5-4.5); Potassium 5.3 mmol/L (3.5-5.1)
[2018-06-27] MEDS: PROPOFOL 1,000 MG in EMPTY BAG 1 BAG IV SCH ×7 (05:30→23:28)
--- NOTE | 2018-06-27 05:35 | XR ---
EXAM: XR Chest, 1 View CLINICAL HISTORY: shortness of breath TECHNIQUE: Frontal view of the chest. COMPARISON: 06/17/18 FINDINGS: Persistent cardiomegaly. Interval development of pleural effusion on the right. Worsening consolidation in the left IMPRESSION: Worsening consolidation bilaterally with increasing right- sided effusion
[2018-06-27] MEDS ORDERED: FUROSEMIDE 10 MG/ML 4 ML VIAL IV STA (05:59)
[2018-06-27] MEDS ORDERED: DEXTROSE 5% IN WATER 1,000 ML IV SCH (06:00)
--- NOTE | 2018-06-27 06:04 | XR ---
EXAM: XR Chest, 1 View CLINICAL HISTORY: Endotracheal tube placement TECHNIQUE: Frontal view of the chest. COMPARISON: 9 to 18//55 hours FINDINGS: Endotracheal tube within the trachea approximately 2.7 cm above the [place]. There is a gastric tube which passes below the diaphragm. The distal tip is not visualized. No evidence pneumothorax. Persistent infiltrates noted bilaterally IMPRESSION: Endotracheal tube in appropriate position. NG tube passes below the diaphragm in the midline distal tips not identified
[2018-06-27 06:16] LABS: Band Neutrophils % 1 %; Lymphocytes # (M) 0.58 k/uL (1.0-4.8); Monocytes # (M) 0.97 k/uL (0-1.0); Myelocytes # (M) 0.19 k/uL (0); Myelocytes % 2 %; Neutrophils % (M) 83 %; Nucleated Red Blood Cells 0 /100 WBC (0-0); Total Cells Counted 200
[2018-06-27 06:17] LABS: Large Platelets Present
[2018-06-27] MEDS: CISATRACURIUM 2 MG/ML 5 ML VIAL IV ONE ×2 (06:46→07:13)
[2018-06-27] MEDS: NOREPINEPHRINE 4 MG in SODIUM CHLORIDE 0.9% 250 ML IV SCH ×5 (06:57→22:50)
[2018-06-27 07:12] LABS: Glucose,Whole Blood 172 mg/dL (75-99)
[2018-06-27] MEDS: CISATRACURIUM 200 MG in SODIUM CHLORIDE 0.9% 180 ML IV SCH (07:16)
[2018-06-27] MEDS: IPRATROPIUM-ALBUTEROL 3 ML NEB INHALATION SCH ×4 (07:30→19:26)
[2018-06-27] MEDS: INSULIN ASPART 100 UNIT/ML 1 ML 10 ML VIAL SQ SCH ×4 (07:40→23:26)
[2018-06-27 07:52] LABS: ABG Base Excess -4.3 mmol/L; ABG HCO3 23 mmol/L (21-25); ABG PCO2 51 mmHg (35-45); ABG PH 7.26 (7.35-7.45); ABG PO2 226 mmHg (83-108); ABG TCO2 24 mmol/L (19-24)
[2018-06-27] MEDS ORDERED: FUROSEMIDE 10 MG/ML 10 ML VIAL IV STA (08:28)
[2018-06-27] MEDS ORDERED: METOPROLOL TARTRATE 5 MG/5 ML VIAL IVP STA (08:29)
[2018-06-27] MEDS: ARTIFICIAL TEARS-HYPROMELLOSE DROPS 15 ML BTL BOTH EYES SCH ×5 (08:53→23:22)
[2018-06-27] MEDS: FUROSEMIDE 10 MG/ML 4 ML VIAL ONE ×2 (08:53→08:57)
[2018-06-27] MEDS ORDERED: DEXTROSE 5% IN WATER 100 ML with AMIODARONE 150 MG IV ONE (09:40)
[2018-06-27] MEDS ORDERED: DIGOXIN 250 MCG/ML 2 ML AMP IVP ONE (09:40)
--- NOTE | 2018-06-27 09:43 | P.NPCON ---
History of Present Illness - Reason for Consult acute renal failure - History of Present Illness Reason for consultation: Acute kidney injury History of present illness: Patient is a 78-year-old male seen in renal consultation for acute kidney injury. Patient's creatinine 2014 was near 1 but in 2017 was noted to be 1.8. This admission his creatinine was 2.4 and is 2.32 today. Patient was transferred from an outside hospital for respiratory distress. Patient has history of systolic CHF with ejection fraction of 35%. Currently his heart rate is in the 130s and his blood pressure is in the systolic 80s. He is maintained on 20 mics of Levophed. His urine output has been about 15 mL an hour for the last hour. He did receive 80 mg of IV Lasix once this morning. He is currently intubated and sedated. Family is present at bedside. He does have history of kidney stones and had a double-J stent placed about [address] Sen. His BNP was elevated at 20,000. He is noted to have trace proteinuria on urinalysis. Prior UA showed no proteinuria. No history of diabetes. Denies regular use of NSAIDs. There is also concern for pneumonia for which he is maintained on antibiotics. Vital signs are stable. Maintained on vasopressors. General: The patient appeared well nourished and normally developed. Currently intubated. HEENT: Head exam is unremarkable. Neck is without jugular venous distension. LUNGS: B scattered rhonchi. reath sounds decreased. HEART: Irregular rate and rhythm. ABDOMEN: Abdominal exam reveals normal bowel sounds. Non-tender and non- distended. No evidence of peritonitis. EXTREMITITES: No clubbing, cyanosis, or edema. 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 supervisor diverticulitis, ITP, ulcers in past,colitis,ddd,gout low back pain, kidney stones feb had taken out 2014 in [facility], [facility] (liver count goes up and down) ( 03/31/15 fell broke ribs broke 2 toes and ended having pneumonia and was on life support in ICU) chest tube about 3 years ago for bilateral pneumonia, cataract in one eye "not sure which one" History of Any Multi-Drug Resistant Organisms: None Reported Past Surgical History: Back Surgery, Cholecystectomy, Heart Catheterization, Heart Catheterization With Stent, Orthopedic Surgery Additional Past Surgical History / Comment(s): cardiac ablation, , heart catheterization 2011, cholecystectomy, cystoscopy with J stent placement.rotator cuff, neck surgery, lithotripsy,colonoscopy,jim kidney stents. Past Anesthesia/Blood Transfusion Reactions: No Reported Reaction Additional Past Anesthesia/Blood Transfusion Reaction / Comment(s): clausterphobic. pt stated has recieved platelets in past. Date of Last Stent Placement:: 2011 Smoking Status: Former smoker - Past Family History Mother Family Medical History: CVA/TIA Father Family Medical History: Coronary Artery Disease (CAD), Myocardial Infarction ([place] ) Brother(s) Family Medical History: CVA/TIA Sister(s) Family Medical History: No Reported History Daughter(s) Family Medical History: No Reported History Son(s) Family Medical History: No Reported History Medications and Allergies Home Medications Medication Instructions Recorded Confirmed Type Loratadine [Claritin] 10 mg PO DAILY 03/23/15 06/14/18 History Metoprolol Succinate [Toprol XL] 50 mg PO DAILY 03/23/15 06/14/18 History Fluticasone/Salmeterol [Advair 1 puff INHALATION RT-BID 04/16/15 06/14/18 History 250-50 Diskus] Aspirin EC [Ecotrin Low Dose] 81 mg PO DAILY 09/03/17 06/14/18 History Eltrombopag Olamine [Promacta] 75 mg PO DAILY 09/03/17 06/14/18 History Tamsulosin HCl [Flomax] 0.4 mg PO DAILY 09/03/17 06/14/18 History Apriso 375 Mg 24hr Cap 1,500 mg PO HS 06/14/18 06/14/18 History Bidil 20-37.5mg 1 tab PO TID 06/14/18 06/14/18 History Furosemide [Lasix] 20 mg PO DAILY 06/14/18 06/14/18 History Ipratropium-Albuterol Nebulize 3 ml INHALATION RT-QID 06/14/18 06/14/18 History [Duoneb 0.5 mg-3 mg/3 ml Soln] Multivitamins, Thera [Multivitamin 1 tab PO DAILY 06/14/18 06/14/18 History (formulary)] [place]-3 Acid Ethyl Esters [Lovaza] 1 gm PO DAILY 06/14/18 06/14/18 History Pantoprazole Sodium [Protonix] 40 mg PO DAILY 06/14/18 06/14/18 History Potassium Chloride ER [K-Dur 20] 20 meq PO DAILY 06/14/18 06/14/18 History Allergies Allergy/AdvReac Type Severity Reaction Status Date / Time acetaminophen Allergy Unknown Verified 06/14/18 14:44 [From Darvocet-N] codeine Allergy Unknown Verified 06/14/18 14:44 ibuprofen [From Motrin] Allergy Unknown Verified 06/14/18 14:44 Iodinated Contrast- Oral and Allergy Unknown Verified 06/14/18 14:44 IV Dye [Iodinated Contrast Media - IV Dye] propoxyphene Allergy Unknown Verified 06/14/18 14:44 [From Darvocet-N] hydromorphone HCl AdvReac Hallucinati Verified 06/14/18 14:44 [From Dilaudid] ons morphine AdvReac Hallucinati Verified 06/14/18 14:44 ons Physical Exam Vitals: Vital Signs Temp Pulse Resp BP Pulse Ox 06/27/18 09:00 129 H 19 85/64 97 06/27/18 08:45 129 H 19 84/60 96 06/27/18 08:30 130 H 20 89/65 94 L 06/27/18 08:15 130 H 15 80/61 99 06/27/18 08:00 97.8 F 128 H 15 89/60 98 06/27/18 07:45 128 H 16 93/63 99 06/27/18 07:30 130 H 20 94/67 99 06/27/18 07:15 131 H 28 H 86/64 99 06/27/18 07:00 132 H 28 H 86/66 98 06/27/18 06:45 132 H 27 H 79/58 99 06/27/18 06:30 131 H 14 81/57 97 06/27/18 06:15 130 H 18 92/64 97 06/27/18 06:00 130 H 16 109/77 97 06/27/18 05:45 130 H 16 106/77 98 06/27/18 05:30 133 H 16 102/72 94 L 06/27/18 05:15 133 H 25 H 102/72 98 06/27/18 05:00 133 H 40 H 98/70 98 06/27/18 04:45 134 H 38 H 104/72 97 06/27/18 04:30 133 H 38 H 97/70 97 06/27/18 04:15 97.8 F 133 H 40 H 97/70 98 06/27/18 03:37 97.9 F 133 H 26 H 110/75 95 06/27/18 02:33 26 H 06/27/18 02:06 97.4 F L 119 H 36 H 102/71 95 Intake and Output 06/26/18 06/27/18 06/27/18 22:59 06:59 14:59 Intake Total 41.507 160.925 Output Total 10 25 Balance 31.507 135.925 Intake: IV 40 60 Dextrose 5% in Water 1, 40 60 000 ml @ 20 mls/hr IV . Q24H YOBANI Rx#:[id number] Intake, IV Titration 1.507 100.925 Amount Cisatracurium 200 mg In 4.284 Sodium Chloride 0.9% 180 ml @ 1 MCG/KG/MIN 4.76 mls/hr IV .Q24H YOBANI Rx#: [id number] Norepinephrine 4 mg In 0 9.375 Sodium Chloride 0.9% 250 ml @ Titrate IV .Q0M [facility]OBANI Rx#:[id number] Propofol 1,000 mg In 1.507 87.266 Empty Bag 1 bag @ Titrate IV .Q0M YOBANI Rx#: [id number] Output: Urine 10 25 Other: Weight 89.2 kg 89.2 kg Results - Lab Results Most recent lab results ABG pH 7.26 (7.35-7.45) L 06/27/18 07:47 ABG pCO2 51 mmHg (35-45) H 06/27/18 07:47 ABG pO2 226 mmHg (83-108) H 06/27/18 07:47 ABG HCO3 23 mmol/L (21-25) 06/27/18 07:47 ABG O2 Saturation 100.0 % (94-97) H 06/27/18 07:47 Calcium 9.1 mg/dL (8.4-10.2) 06/27/18 04:50 Phosphorus 6.6 mg/dL (2.5-4.5) H 06/27/18 04:50 Magnesium 2.0 mg/dL (1.6-2.3) 06/27/18 04:50 06/27/18 04:50 06/27/18 04:50 Assessment and Plan Plan: Assessment: 1. Acute kidney injury secondary to ischemic ATN secondary to hypotension. Creatinine 2.4 on admission and is 2.32 today. 2. Atrial flutter. Cardiology following. To be started on IV amiodarone today. 3. Hypotension maintained on Levophed. 4. Systolic CHF with ejection fraction of 35%. 5. Metabolic acidosis secondary to acute kidney injury. 6. Hyperphosphatemia secondary to acute kidney injury. 7. Volume overload. 8. History of nephrolithiasis status post right sided double-J stent placed about 2 weeks ago. Plan: Avoid hypotension. I expect blood pressure to improve once his heart rate is controlled. This should also improve renal perfusion and urine output. Status post Lasix 80 mg IV this morning. Follow-up cultures. Check cortisol level. Continue to monitor renal function and urine output closely. If remains oliguric, will challenge him with another dose of IV Lasix and potentially start Lasix drip. If no improvement in his renal function and urine output in the next 24-48 hours , may need to initiate renal replacement therapy. This was discussed with the family present at bedside. Thank you for the consultation. I will continue to follow the patient with you during his hospital stay.
[2018-06-27] MEDS: AMIODARONE 450 MG in DEXTROSE 5% IN WATER 250 ML IV SCH ×4 (10:08→20:45)
[2018-06-27] MEDS: cefTRIAXone IN SWFI 1,000 MG/10 ML SYRINGE IVP SCH (10:23)
[2018-06-27] MEDS: CHLORHEXIDINE GLUCONATE 15 ML CUP MUCOUS MEM SCH ×2 (10:23→21:16)
[2018-06-27] MEDS: AZITHROMYCIN 500 MG in SODIUM CHLORIDE 0.9% 250 ML IVPB SCH (10:24)
--- NOTE | 2018-06-27 10:55 | CONS ---
CONSULTATION Mr. Barnett is a 78-year-old gentleman who was transferred from the outside hospital with acute respiratory distress. This patient was recently admitted in the hospital with congestive cardiac failure and pneumonia. Patient subsequently signed out AGAINST MEDICAL ADVICE. The patient went to the [facility] with acute respiratory distress. Patient was tachycardic. The patient was treated for IV Bumex and COPD and IV Cardizem, but there was no improvement in the patient's symptoms and he was transferred over here. Subsequently after admission in the hospital, patient has been intubated. During the previous admission, this patient had echocardiogram which revealed ejection fraction of 35%. Patient has a history of atrial fibrillation. 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 The patient had a cardiac catheterization done in 2011 or 13. At that time, no significant coronary artery disease was detected. The patient also has a history of ITP and thrombocytopenia and the patient was being considered for atrial fibrillation ablation as well as the left atrial appendage closure device. The patient has a past history of congestive cardiac failure. History of COPD, history of pneumonia. The patient's past history also includes a cholecystectomy, back surgery and orthopedic surgery. The patient's home medications included Flomax, Protonix, Lovaza, Toprol 50 mg daily, Claritin, Ecotrin, Advair and the Lasix 20 mg daily. PHYSICAL EXAMINATION: At present reveals a 78-year-old gentleman who is currently intubated and not responsive. The patient's heart rate is 130. A carotid sinus pressure was applied. It is suggestive of atrial flutter with a rapid rate. Blood pressure is 85/64 mmHg. The patient currently is on Levophed 20 mics. HEAD/ENT examination is negative. Neck is supple. Jugular venous pressure is elevated. Both the carotid pulses are felt. There is no bruit. Chest is symmetrical. HEART: The PMI is diffuse. First and second heart sounds are normal. Lungs examination reveals bilateral basal rales. Abdomen is soft. Liver is palpable about 3-4 fingerbreadths below the right costal margin. Extremities are cold. The patient's urine output is borderline about 10-15 mL/hour. Arterial blood gases shows pH of 7.26, pCO2 is 51, PO2 is 226. A chest x-ray shows evidence of pleural effusion and congestive cardiac failure. Patient's creatinine is 2.32 and BNP level was 22,000. FINAL IMPRESSION: This patient is presented with acute respiratory distress. At present patient appears to be in shock which could be a combination of cardiogenic as well as septic shock and patient has an acute on chronic renal failure, oliguric renal failure. The patient's blood pressure is currently being maintained with IV Levophed. The patient's prognosis is guarded. We will start the patient on amiodarone drip to control the rate. One dose of Lanoxin will be given. We will repeat the echocardiogram. If there is no response to the IV Lasix, the Lasix drip will be considered. Patient's overall prognosis is very poor. MMODL / IJN: [id number] /
--- NOTE | 2018-06-27 13:12 | P.CNPUL ---
History of Present Illness Consult date: 06/27/18 Requesting physician: Moi Jacome Reason for consult: other (Acute respiratory failure) Chief complaint: Shortness of breath History of present illness: This is a 78-year-old white male with history of extensive medical history, patient was recently inpatient from 06/14/2018 until 06/17/2018. He was seen by Dr. Lawrence on consultation. Patient is known to have history of A. fib with RVR, presented on the last admission with left flank pain, had previous episodes of pneumonia requiring intubations and mechanical ventilation in [facility]. On the last admission to [facility], patient had right flank pain, no hematuria. He was also found to have atrial fibrillation with RVR, and supposedly he had a previous history of ITP. Normally his platelets are in the range of 50. CT of the chest on the last admission showed some loculated fluid within the minor fissure on the right side , and it was felt it is best to leave it alone. So on the last admission the patient was found to have calculus in the right UPJ with evidence of hydronephrosis, and he was seen by urology on consultation. He underwent cystoscopy and placement of right jJ catheter. Patient clearly had right hydronephrosis secondary to obstructing calculus at the Up junction. On 06/17, the patient signed out AMA, and did not want to remain in the hospital. Upon arrival to the ER yesterday, patient was apparently in quite a bit of respiratory distress. And the ER physician question pneumonia in the right lung , however clearly this was a chronic fluid in the fissure noted previously. Patient was paced on BiPAP, given fluids IV, admitted to the intensive care unit , and upon arrival to the ICU I was notified by the nurse was taking care of the patient that the patient is in severe distress, his respiratory rate is in the high 50s and low 40s. That is in spite of being on BiPAP. As soon as he arrived to the ICU, based on the clinical history, I recommended immediate intubation by HOUSEKEEPING CLEANER, and placement on mechanical ventilation. Patient was given propofol, and he remained extremely agitated, then I recommended Nimbex which was given for a very short.of time than it was later discontinued. When I saw the patient shortly after he arrived to the ICU I have noted that the patient is clearly in atrial flutter. Did not respond to carotid massage, did not respond to 2.5 mg of metoprolol given slowly. Cardiology was consulted, patient was treated with amiodarone. His rate seems to be slower, his chest x- ray clearly showed evidence of pulmonary edema, no evidence of pneumonia. Lasix 80 mg IV push was ordered. Adelaida ward is also on norepinephrine presently at 19 mcg/m. Labs were reviewed CBC is relatively normal, no evidence of leukocytosis. His ABG upon intubation showed a pO2 of 226 pCO2 of 51 pH of 7.26 , hence his ventilator settings were adjusted, placed on assist control rate of 20 tidal volume of 500 the of 5 and FiO2 was decreased down to 50%. Family was noted at bedside, and updated on his overall clinical condition. Discussed the patient with the blast furnace operator on the case. 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 diverticulitis, ITP, ulcers in past,colitis,ddd,gout low back pain, kidney stones feb had taken out 2014 in [facility], [place] disease (liver count goes up and down) ( 03/31/15 fell broke ribs broke 2 toes and ended having pneumonia and was on life support in ICU) chest tube about 3 years ago for bilateral pneumonia, cataract in one eye "not sure which one" History of Any Multi-Drug Resistant Organisms: None Reported Past Surgical History: Back Surgery, Cholecystectomy, Heart Catheterization, Heart Catheterization With Stent, Orthopedic Surgery Additional Past Surgical History / Comment(s): cardiac ablation, , heart catheterization 2011, cholecystectomy, cystoscopy with J stent placement.rotator cuff, neck surgery, lithotripsy,colonoscopy,jim kidney stents. Past Anesthesia/Blood Transfusion Reactions: No Reported Reaction Additional Past Anesthesia/Blood Transfusion Reaction / Comment(s): clausterphobic. pt stated has recieved platelets in past. Date of Last Stent Placement:: 2011 Smoking Status: Former smoker - Past Family History Mother Family Medical History: CVA/TIA Father Family Medical History: Coronary Artery Disease (CAD), Myocardial Infarction (ID ) Brother(s) Family Medical History: CVA/TIA Sister(s) Family Medical History: No Reported History Daughter(s) Family Medical History: No Reported History Son(s) Family Medical History: No Reported History Medications and Allergies Home Medications Medication Instructions Recorded Confirmed Type Loratadine [Claritin] 10 mg PO DAILY 03/23/15 06/27/18 History Metoprolol Succinate [Toprol XL] 50 mg PO DAILY 03/23/15 06/27/18 History Fluticasone/Salmeterol [Advair 1 puff INHALATION RT-BID 04/16/15 06/27/18 History 250-50 Diskus] Aspirin EC [Ecotrin Low Dose] 81 mg PO DAILY 09/03/17 06/27/18 History Eltrombopag Olamine [Promacta] 75 mg PO DAILY 09/03/17 06/27/18 History Tamsulosin HCl [Flomax] 0.4 mg PO DAILY 09/03/17 06/27/18 History Apriso 375 Mg 24hr Cap 1,500 mg PO HS 06/14/18 06/27/18 History Bidil 20-37.5mg 1 tab PO TID 06/14/18 06/27/18 History Furosemide [Lasix] 20 mg PO DAILY 06/14/18 06/27/18 History Ipratropium-Albuterol Nebulize 3 ml INHALATION RT-QID 06/14/18 06/27/18 History [Duoneb 0.5 mg-3 mg/3 ml Soln] Multivitamins, Thera [Multivitamin 1 tab PO DAILY 06/14/18 06/27/18 History (formulary)] [place]-3 Acid Ethyl Esters [Lovaza] 1 gm PO DAILY 06/14/18 06/27/18 History Pantoprazole Sodium [Protonix] 40 mg PO DAILY 06/14/18 06/27/18 History Potassium Chloride ER [K-Dur 20] 20 meq PO DAILY 06/14/18 06/27/18 History Allergies Allergy/AdvReac Type Severity Reaction Status Date / Time acetaminophen Allergy Unknown Verified 06/27/18 11:06 [From Darvocet-N] codeine Allergy Unknown Verified 06/27/18 11:06 ibuprofen [From Motrin] Allergy Unknown Verified 06/27/18 11:06 Iodinated Contrast- Oral and Allergy Unknown Verified 06/27/18 11:06 IV Dye [Iodinated Contrast Media - IV Dye] propoxyphene Allergy Unknown Verified 06/27/18 11:06 [From Darvocet-N] hydromorphone HCl AdvReac Hallucinati Verified 06/27/18 11:06 [From Dilaudid] ons morphine AdvReac Hallucinati Verified 06/27/18 11:06 ons Physical Exam Vitals: Vital Signs Temp Pulse Resp BP Pulse Ox 06/27/18 12:02 79 06/27/18 12:00 97.5 F L 80 20 86/55 99 06/27/18 11:50 80 06/27/18 11:45 87 20 93/48 97 06/27/18 11:30 86 22 87/49 97 06/27/18 11:15 96 22 99/65 96 06/27/18 11:00 96 20 86/64 97 06/27/18 10:45 102 H 20 107/63 97 06/27/18 10:30 88 18 104/58 97 06/27/18 10:15 96 17 87/65 98 06/27/18 10:00 132 H 19 86/64 98 18 09:45 131 H 15 86/61 97 06/27/18 09:30 131 H 16 86/59 97 06/27/18 09:15 130 H 19 84/64 97 06/27/18 09:00 129 H 19 85/64 97 18 08:45 129 H 19 84/60 96 18 08:30 130 H 20 89/65 94 L 06/27/18 08:15 130 H 15 80/61 99 18 08:00 97.8 F 128 H 15 89/60 98 18 07:45 128 H 16 93/63 99 06/27/18 07:40 120 H 06/27/18 07:30 130 H 20 94/67 99 06/27/18 07:15 131 H 28 H 86/64 99 06/27/18 07:00 132 H 28 H 86/66 98 06/27/18 06:45 132 H 27 H 79/58 99 06/27/18 06:30 131 H 14 81/57 97 06/27/18 06:15 130 H 18 92/64 97 06/27/18 06:00 130 H 16 109/77 97 06/27/18 05:45 130 H 16 106/77 98 06/27/18 05:30 133 H 16 102/72 94 L 06/27/18 05:15 133 H 25 H 102/72 98 06/27/18 05:00 133 H 40 H 98/70 98 06/27/18 04:45 134 H 38 H 104/72 97 06/27/18 04:30 133 H 38 H 97/70 97 06/27/18 04:15 97.8 F 133 H 40 H 97/70 98 06/27/18 03:37 97.9 F 133 H 26 H 110/75 95 06/27/18 02:33 26 H 06/27/18 02:06 97.4 F L 119 H 36 H 102/71 95 Intake and Output 06/26/18 06/27/18 06/27/18 22:59 06:59 14:59 Intake Total 41.507 828.370 Output Total 10 130 Balance 31.507 698.370 Intake: IV 40 370 Azithromycin 500 mg In 250 Sodium Chloride 0.9% 250 ml @ 125 mls/hr IVPB DAILY [facility] Rx#:[id number] Dextrose 5% in Water 1, 40 120 000 ml @ 20 mls/hr IV . Q24H [facility]OB[facility] Rx#:[id number] Intake, IV Titration 1.507 458.370 Amount Cisatracurium 200 mg In 4.284 Sodium Chloride 0.9% 180 ml @ 1 MCG/KG/MIN 4.76 mls/hr IV .Q24H [facility] Rx#: [id number] Norepinephrine 4 mg In 0 282.125 Sodium Chloride 0.9% 250 ml @ Titrate IV .Q0M [facility] Rx#:[id number] Propofol 1,000 mg In 1.507 171.961 Empty Bag 1 bag @ Titrate IV .Q0M YOB[facility] Rx#: [id number] Output: Urine 10 130 Other: Voiding Method Indwelling Catheter Weight 89.2 kg 89.2 kg Physical Exam revealed a 78-year-old white male on mechanical ventilation, sedated, on propofol, he is also presently on norepinephrine, and amiodarone drip. Head: Atraumatic, normocephalic. Endotracheal tube and orogastric tube noted to be intact. HEENT:[Neck is supple.] [No neck masses.] [No thyromegaly.] [No JVD.] Chest: [Minimal crackles at the bases, no rhonchi and no wheezes. Cardiac Exam: [Irregular irregular rhythm. Normal S1 and S2, no S3 gallop, no murmur.] Abdomen: [Soft, nontender, no megaly, no rebound, no guarding, normal bowel sounds.] Extremities: [No clubbing, trace edema, no cyanosis.] Neurological Exam: [Could not be assessed, patient is sedated, on propofol drip at present. Psychiatric: Could not be addressed. Lymphatics: No lymphadenopathy. Results - Laboratory Findings CBC and BMP: 06/27/18 04:50 06/27/18 04:50 ABG ABG pH 7.26 (7.35-7.45) L 06/27/18 07:47 ABG pCO2 51 mmHg (35-45) H 06/27/18 07:47 ABG pO2 226 mmHg (83-108) H 06/27/18 07:47 ABG O2 Saturation 100.0 % (94-97) H 06/27/18 07:47 PT/INR, D-dimer PT 13.7 sec (9.0-12.0) H 06/27/18 02:15 INR 1.5 (<1.2) H 06/27/18 02:15 Abnormal lab findings: Abnormal Labs 06/27/18 06/27/18 06/27/18 02:15 02:15 02:15 WBC 10.8 H RBC 3.20 L Hgb 9.5 L Hct 29.1 L RDW 20.5 H Plt Count 123 L D Neutrophils # (Manual) 9.90 H Lymphocytes # (Manual) 0.54 L Myelocytes # (Manual) PT 13.7 H INR 1.5 H ABG pH ABG pCO2 ABG pO2 ABG O2 Saturation Potassium 5.3 H Carbon Dioxide 20 L BUN 38 H Creatinine 2.40 H Glucose 141 H POC Glucose (mg/dL) Phosphorus Total Bilirubin 2.5 H ALT 17 L Urine Protein Urine Blood Ur Leukocyte Esterase Urine RBC Urine WBC Urine Bacteria Hyaline Casts Urine Mucus 06/27/18 06/27/1818 03:29 04:07 04:50 WBC RBC 3.02 L Hgb 9.0 L Hct 27.6 L RDW 20.8 H Plt Count 125 L Neutrophils # (Manual) 8.10 H Lymphocytes # (Manual) 0.58 L Myelocytes # (Manual) 0.19 H PT INR ABG pH ABG pCO2 ABG pO2 ABG O2 Saturation Potassium Carbon Dioxide BUN Creatinine Glucose POC Glucose (mg/dL) 163 H Phosphorus Total Bilirubin ALT Urine Protein Trace H Urine Blood Large H Ur Leukocyte Esterase Trace H Urine RBC >182 H Urine WBC 13 H Urine Bacteria Rare H Hyaline Casts 3 H Urine Mucus Rare H 06/27/18 06/27/18 06/27/18 04:50 07:10 07:47 WBC RBC Hgb Hct RDW Plt Count Neutrophils # (Manual) Lymphocytes # (Manual) Myelocytes # (Manual) PT INR ABG pH 7.26 L ABG pCO2 51 H ABG pO2 226 H ABG O2 Saturation 100.0 H Potassium 5.3 H Carbon Dioxide BUN 37 H Creatinine 2.32 H Glucose 147 H POC Glucose (mg/dL) 172 H Phosphorus 6.6 H Total Bilirubin ALT Urine Protein Urine Blood Ur Leukocyte Esterase Urine RBC Urine WBC Urine Bacteria Hyaline Casts Urine Mucus - Diagnostic Findings Chest x-ray: image reviewed (Chest x-ray is consistent with congestive heart failure. And old fluid noted in the fissure. Relating to the right middle lobe area.) Assessment and Plan Assessment: Impression: 1 acute hypoxic respiratory failure secondary to pulmonary edema secondary to systolic congestive heart failure and atrial flutter/atrial fibrillation with RVR. 2 acute kidney injury secondary to hypotension/acute tubular necrosis. Patient is now on levo fed, and it is being titrated to a mean of 65. Patient is being addressed by nephrology. 3 acute volume overload 4 nephrolithiasis, status post right sided double J stent placed about 10 days ago. 5 probably doubt sepsis, I believe the overall presentation is mostly a cardiac presentation, no clinical history to suggest pneumonia. My clinical index of suspicion for pneumonia is extremely low. However his urinalysis is a bit concerning cultures are pending, and the patient is empirically on antibiotics. 6 multiple comorbidities including COPD, chronic dyspnea, obstructive sleep apnea syndrome, ITP, chronic atrial fibrillation, remote history of pneumonia requiring chest tube insertion and parapneumonic effusion back in 2015, degenerative joint disease, chronic back pain, and gout. Recommendation: Continue present supportive care measures, patient was seen by cardiology on consultation, started on amiodarone, continue diuretics, avoid hypotension, empiric antibiotics, bronchodilators, we'll continue to follow. Discussed his condition with his and daughter at bedside. Critical care time is 55 minutes. Time with Patient: Greater than 30
[2018-06-27 13:47] LABS: Glucose,Whole Blood 180 mg/dL (75-99)
--- NOTE | 2018-06-27 15:17 | ECHOF ---
Referral Reason:assess lv function MEASUREMENTS -------- HEIGHT: 170.2 cm WEIGHT: 87.5 kg BP: 86/4 IVSd: 1.2 cm (0.6 - 1.1) LVIDd: 4.1 cm (3.9 - 5.3) LVPWd: 1.4 cm (0.6 - 1.1) EDV(Teich): 76 ml IVSs: 1.4 cm LVIDs: 4.1 cm LVPWs: 1.6 cm %IVS Thck: 18 % ESV(Teich): 74 ml EF(Teich): 2 % %FS: 1 % SV(Teich): 1 ml LA Diam: 4.1 cm (2.7 - 3.8) RVIDd: 4.4 cm (< 3.3) IVC: 22.13 mm LALs A4C: 7.5 cm LAAs A4C: 34.2 cm LAESV A-L A4C: 133 ml LAESV MOD A4C: 131 ml LALs A2C: 6.6 cm LAAs A2C: 20.8 cm LAESV A-L A2C: 55 ml LAESV MOD A2C: 53 ml LAESV(A-L): 91 ml LAESV Index (A-L): 45.59 ml/m Ao Diam: 3.3 cm (2.0 - 3.7) AV Cusp: 1.8 cm (1.5 - 2.6) EPSS: 1.8 cm MV DecT: 154 ms MV PHT: 37 ms MVA By PHT: 6.0 cm TR Vmax: 2.93 m/s TR maxP.38 mmHg RAP: 15.00 mmHg RVSP: 49.38 mmHg MV EF SLOPE: 64.88 mm/s (70 - 150) MV EXCURSION: 19.13 mm (> 18.000) FINDINGS -------- Atrial fibrillation. This was a technically adequate study. The left ventricular size is normal. There is moderate concentric left ventricular hypertrophy. O verall left ventricular systolic function is severely impaired with, an EF between 20 - 25 %. There is evidence of paradoxical septal motion. The right ventricle is severely enlarged. LA is severely dilated >40 ml/m2 The right atrium is normal in size. There is mild aortic valve sclerosis. The mitral valve leaflets are mildly thickened. Mild mitral annular calcification present. Mild m itral regurgitation is present. Mild tricuspid regurgitation present. There is moderate pulmonary hypertension. The right ventric ular systolic pressure, as measured by Doppler, is 49.38mmHg. Trace/mild (physiologic) pulmonic regurgitation. The aortic root size is normal. The inferior vena cava is dilated with no significant inspiratory collapse which is consistent estima maged right atrial pressure of >15 mmHg. There is no pericardial effusion. CONCLUSIONS -------- 1. Atrial fibrillation. 2. This was a technically adequate study. 3. The left ventricular size is normal. 4. There is moderate concentric left ventricular hypertrophy. 5. Overall left ventricular systolic function is severely impaired with, an EF between 20 - 25 %. 6. There is evidence of paradoxical septal motion. 7. The right ventricle is severely enlarged. 8. LA is severely dilated >40 ml/m2 9. The right atrium is normal in size. 10. There is mild aortic valve sclerosis. 11. The mitral valve leaflets are mildly thickened. 12. Mild mitral annular calcification present. 13. Mild mitral regurgitation is present. 14. Mild tricuspid regurgitation present. 15. There is moderate pulmonary hypertension. 16. The right ventricular systolic pressure, as measured by Doppler, is 49.38mmHg. 17. Trace/mild (physiologic) pulmonic regurgitation. 18. The aortic root size is normal. 19. The inferior vena cava is dilated with no significant inspiratory collapse which is consistent es timated right atrial pressure of >15 mmHg. 20. There is no pericardial effusion. CUSTOMER DATA TECHNICIAN: Vania Santillan RDCS
[2018-06-27] MEDS: FUROSEMIDE 250 MG in SODIUM CHLORIDE 0.9% 225 ML IVP SCH (16:16)
[2018-06-27 18:17] LABS: Glucose,Whole Blood 171 mg/dL (75-99)
--- NOTE | 2018-06-27 21:22 | P.HPIM ---
History of Present Illness H&P Date: 06/27/18 Chief Complaint: Respiratory distress History of presenting complaint: This is a 78-year-old patient who follows with Dr. Hackett. Patient was recently in the hospital. Discharge on 06/17/2018. Patient is then had a diagnosis of atrial fibrillation with a rapid ventricular rate, bibasilar pneumonia, bilateral pleural effusion, acute renal failure, congestive heart failure exacerbation EF of 35-40%, kidney stones for which patient had a cystoscopy and a UVJ catheter placement. Patient seen by multiple consultants. Patient had left AMA. 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 Patient also is got known coronary artery with stent. Patient presented to ER in respiratory distress. Patient is placed on BiPAP given IV fluids and be to the ICU. Patient went into further respiratory distress patient had to be intubated by the [facility] and put on a ventilator. Patient started on propofol and also was given Nimbex for a short time. Patient seen by Dr. Brown in the ICU. Also found to be in atrial flutter. Patient is given IV amiodarone and cartilage was consulted. Patient also felt to pulmonary edema. IV Lasix was given. Then levo fed was also started. Currently patient's daughter the bedside. Patient unable to speak because being ventilated. Review of systems: Cannot be obtained as patient was intubated. Social history: lives in [facility]. Smoked for about 60 years. Stopped in 2011. Smoked about a pack a day. Alcohol occasionally. Family history: Stroke and TIA Physical examination: VITAL SIGNS: 97.2, 120, Lasix, 107/65, 93% on 2 L upon presentation GENERAL: BMI 30.8, built, laying in bed intubated. EYES: Pupils equal. Conjunctiva normal. HEENT: External appearance of nose and ears normal, oral cavity endotracheal tube. NECK: JVD unable to assess; masses not palpable. HEART: First and second heart sounds irregular; no edema. LUNGS: Respiratory rate increased, diminished breath sounds prolonged expiration. ABDOMEN: Soft, nontender, liver spleen not palpable, no masses palpable. LYMPHATICS: No lymph nodes palpable in the axilla and neck. PSYCH: Unable to assess, patient intubatedl. NEUROLOGICAL: Cranial nerves grossly intact; no facial asymmetry, power and sensation grossly intact. Investigations: reviewed in the context of assessment and plan White count 10.8, hemoglobin 9.5, platelets 123 Potassium 5.3 BUN 38, creatinine 2.40 patient's BUN/creatinine on June 17 was 34/2.88 NT proBNP 20,400 UA-nitrate and positive WBC bacteria EKG-tracing interpreted showing flutter fibrillation Chest [id number] effusion and possible infiltrate Assessment: -Acute and chronic congestive heart failure exacerbation from systolic dysfunction EF 20-25% -Secondary pulmonary hypertension secondary to underlying CHF -Hypertensive heart disease -Possible UTI -Acute COPD exacerbation in an ex-smoker -Acute hypoxic respiratory failure combination of CHF and possibly COPD, continued ventilator support -Cardiogenic shock requiring pressure support on presentation -Persistent atrial flutter fibrillation with a rapid ventricular rate on presentation -Normocytic anemia could be from underlying chronic kidney disease -Thrombocytopenia likely ITP -Possibly mixed metabolic and respiratory acidosis -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 Intubated. Seen by Dr. Brown from critical care and Dr. VC teran from cardiology. Current medications include DuoNeb, IV amiodarone, azithromycin, IV ceftriaxone, IV Lasix drip, IV levo fed and IV propofol. Spoke to the daughter the bedside. 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 diverticulitis, ITP, ulcers in past,colitis,ddd,gout low back pain, kidney stones feb had taken out 2014 in [facility] (liver count goes up and down) ( 03/31/15 fell broke ribs broke 2 toes and ended having pneumonia and was on life support in ICU) chest tube about 3 years ago for bilateral pneumonia, cataract in one eye "not sure which one" History of Any Multi-Drug Resistant Organisms: None Reported Past Surgical History: Back Surgery, Cholecystectomy, Heart Catheterization, Heart Catheterization With Stent, Orthopedic Surgery Additional Past Surgical History / Comment(s): cardiac ablation, , heart catheterization 2011, cholecystectomy, cystoscopy with J stent placement.rotator cuff, neck surgery, lithotripsy,colonoscopy,jim kidney stents. Past Anesthesia/Blood Transfusion Reactions: No Reported Reaction Additional Past Anesthesia/Blood Transfusion Reaction / Comment(s): clausterphobic. pt stated has recieved platelets in past. Date of Last Stent Placement:: 2011 Smoking Status: Former smoker - Past Family History Mother Family Medical History: CVA/TIA Father Family Medical History: Coronary Artery Disease (CAD), Myocardial Infarction (CA ) Brother(s) Family Medical History: CVA/TIA Sister(s) Family Medical History: No Reported History Daughter(s) Family Medical History: No Reported History Son(s) Family Medical History: No Reported History Medications and Allergies Home Medications Medication Instructions Recorded Confirmed Type Loratadine [Claritin] 10 mg PO DAILY 03/23/15 06/27/18 History Metoprolol Succinate [Toprol XL] 50 mg PO DAILY 03/23/15 06/27/18 History Fluticasone/Salmeterol [Advair 1 puff INHALATION RT-BID 04/16/15 06/27/18 History 250-50 Diskus] Aspirin EC [Ecotrin Low Dose] 81 mg PO DAILY 09/03/17 06/27/18 History Eltrombopag Olamine [Promacta] 75 mg PO DAILY 09/03/17 06/27/18 History Tamsulosin HCl [Flomax] 0.4 mg PO DAILY 09/03/17 06/27/18 History Apriso 375 Mg 24hr Cap 1,500 mg PO HS 06/14/18 06/27/18 History Bidil 20-37.5mg 1 tab PO TID 06/14/18 06/27/18 History Furosemide [Lasix] 20 mg PO DAILY 06/14/18 06/27/18 History Ipratropium-Albuterol Nebulize 3 ml INHALATION RT-QID 06/14/18 06/27/18 History [Duoneb 0.5 mg-3 mg/3 ml Soln] Multivitamins, Thera [Multivitamin 1 tab PO DAILY 06/14/18 06/27/18 History (formulary)] [place]-3 Acid Ethyl Esters [Lovaza] 1 gm PO DAILY 06/14/18 06/27/18 History Pantoprazole Sodium [Protonix] 40 mg PO DAILY 06/14/18 06/27/18 History Potassium Chloride ER [K-Dur 20] 20 meq PO DAILY 06/14/18 06/27/18 History Allergies Allergy/AdvReac Type Severity Reaction Status Date / Time acetaminophen Allergy Unknown Verified 06/27/18 11:06 [From Darvocet-N] codeine Allergy Unknown Verified 06/27/18 11:06 ibuprofen [From Motrin] Allergy Unknown Verified 06/27/18 11:06 Iodinated Contrast- Oral and Allergy Unknown Verified 06/27/18 11:06 IV Dye [Iodinated Contrast Media - IV Dye] propoxyphene Allergy Unknown Verified 06/27/18 11:06 [From Darvocet-N] hydromorphone HCl AdvReac Hallucinati Verified 06/27/18 11:06 [From Dilaudid] ons morphine AdvReac Hallucinati Verified 06/27/18 11:06 ons Results CBC & Chem 7: 06/27/18 04:50 06/27/18 04:50 Thrombosis Risk Factor Assmnt - Choose All That Apply Each Factor Represents 1 point: Abnormal pulmonary function (COPD), Obesity ( BMI >25), Serious lung disease incl. pneumonia (< 1month) Each Risk Factor Represents 3 Points: Age 75 years or older Thrombosis Risk Factor Assessment Total Risk Factor Score: 6 Thrombosis Risk Factor Assessment Level: High Risk
[2018-06-27] MEDS: SODIUM CHLORIDE 0.9% 1,000 ML IV SCH (21:30)
[2018-06-27 23:34] LABS: Glucose,Whole Blood 148 mg/dL (75-99)
[2018-06-28] MEDS: PROPOFOL 1,000 MG in EMPTY BAG 1 BAG IV SCH ×5 (03:15→23:25)
[2018-06-28] MEDS: NOREPINEPHRINE 4 MG in SODIUM CHLORIDE 0.9% 250 ML IV SCH ×5 (03:59→21:16)
[2018-06-28] MEDS: ARTIFICIAL TEARS-HYPROMELLOSE DROPS 15 ML BTL BOTH EYES SCH ×5 (04:27→20:44)
[2018-06-28 05:11] LABS: Calcium 9.2 mg/dL (8.4-10.2); Magnesium 2.2 mg/dL (1.6-2.3); Potassium 5.3 mmol/L (3.5-5.1)
[2018-06-28 05:14] LABS: Anisocytosis Moderate; HCT 30.6 % (39.0-53.0); HGB 9.9 gm/dL (13.0-17.5); Hypochromasia Slight; MCH 29.2 pg (25.0-35.0); MCHC 32.2 g/dL (31.0-37.0); MCV 90.6 fL (80.0-100.0); Mean Platelet Volume 15.7; Platelet Count 217 k/uL (150-450); RBC 3.38 m/uL (4.30-5.90); RDW 20.4 % (11.5-15.5)
[2018-06-28 05:22] LABS: WBC 26.4 k/uL (3.8-10.6)
[2018-06-28 05:24] LABS: Phosphorus 8.7 mg/dL (2.5-4.5)
[2018-06-28 05:47] LABS: Band Neutrophils % 3 %; Lymphocytes # (M) 0.53 k/uL (1.0-4.8); Monocytes # (M) 7.39 k/uL (0-1.0); Neutrophils % (M) 67 %; Nucleated Red Blood Cells 0 /100 WBC (0-0); Total Cells Counted 100
[2018-06-28 05:48] LABS: Large Platelets Present; Poikilocytosis (M) Present
[2018-06-28 06:59] LABS: Glucose,Whole Blood 132 mg/dL (75-99)
[2018-06-28 07:08] LABS: ABG Base Excess -1.4 mmol/L; ABG HCO3 24 mmol/L (21-25); ABG Oxygen Saturation 95.9 % (94-97); ABG PCO2 40 mmHg (35-45); ABG PH 7.38 (7.35-7.45); ABG PO2 77 mmHg (83-108); ABG TCO2 25 mmol/L (19-24)
--- NOTE | 2018-06-28 07:22 | XR ---
EXAMINATION TYPE: XR chest 1V portable DATE OF EXAM: 06/28/2018 Comparison: 06/27/2018 Clinical History: 78 year-old male tube placement Findings: ACDF hardware. ET tube satisfactory. NG tube courses below the diaphragm. Multilevel vertebroplasty c hanges demonstrated. Moderate cardiomegaly. Patchy bilateral airspace opacities and hazy bibasilar de nsities. Impression: Small pleural effusions with adjacent atelectasis and/or consolidation. Along with similar patchy opa cities on both sides, findings could reflect CHF.
[2018-06-28] MEDS: IPRATROPIUM-ALBUTEROL 3 ML NEB INHALATION SCH ×4 (07:56→18:45)
[2018-06-28] MEDS: AMIODARONE 450 MG in DEXTROSE 5% IN WATER 250 ML IV SCH ×4 (08:18→08:55)
--- NOTE | 2018-06-28 08:38 | P.PN ---
Subjective Patient is seen in follow-up for acute kidney injury. Patient's creatinine 2015 was near 1 but in 2017 was noted to be 1.8. Creatinine was 2.32 yesterday and is up at 2.61 today. Patient's currently intubated and sedated. He is maintained on Lasix drip at 10 mL an hour and is nonoliguric. He is on 13 mics of Levophed. He is also on amiodarone drip for to fibrillation. He is noted to have an ejection fraction of 20-25% with moderate pulmonary hypertension. He has an OG tube in place and will be started on feeds today. Vital signs are stable. General: The patient appeared well nourished and normally developed. HEENT: Head exam is unremarkable. Neck is without jugular venous distension. LUNGS: Lungs are clear to auscultation and percussion. Breath sounds decreased. HEART: Rate and Rhythm are regular. First and second heart sounds normal. No murmurs, rubs or gallops. ABDOMEN: Abdominal exam reveals normal bowel sounds. Non-tender and non- distended. No evidence of peritonitis. EXTREMITITES: No clubbing, cyanosis, or edema. Objective - Vital Signs Vital signs: Vital Signs Temp 97.4 F L 06/28/18 04:00 Pulse 62 06/28/18 08:05 Resp 20 06/28/18 07:30 BP 98/52 06/28/18 07:30 Pulse Ox 95 06/28/18 07:30 Intake & Output 06/27/18 06/28/18 06/28/18 18:59 06:59 18:59 Intake Total 8461.738 1346.757 160 Output Total 335 1660 90 Balance 1620.095 -372.243 70 Weight 89.2 kg 86.1 kg Intake: IV 610 605 60 Azithromycin 500 mg In 250 Sodium Chloride 0.9% 250 ml @ 125 mls/hr IVPB DAILY YOBANI Rx#:[id number] Dextrose 5% in Water 1, 240 60 000 ml @ 20 mls/hr IV . Q24H YOBANI Rx#:[id number] Dextrose 5% in Water 100 100 ml @ 618 mls/hr IV .Q10M ONE with Amiodarone 150 mg Rx#:[id number] Furosemide 250 mg In 20 120 10 Sodium Chloride 0.9% 225 ml @ 10 MG/HR 10 mls/hr IVP .Q24H YOB[facility] Rx#: [id number] Sodium Chloride 0.9% 1, 425 50 000 ml @ 50 mls/hr IV . Q20H YOB[facility] Rx#:[id number] Intake, IV Titration 1345.095 682.757 100 Amount Amiodarone 450 mg In 259.000 Dextrose 5% in Water 250 ml @ 1 MG/MIN 34.53 mls/ hr IV .Q7H31M YOBANI Rx#: [id number] Cisatracurium 200 mg In 4.284 Sodium Chloride 0.9% 180 ml @ 1 MCG/KG/MIN 4.76 mls/hr IV .Q24H YOBANI Rx#: [id number] Norepinephrine 4 mg In 801.376 416.749 Sodium Chloride 0.9% 250 ml @ Titrate IV .Q0M [facility] Rx#:[id number] Propofol 1,000 mg In 280.435 266.008 100 Empty Bag 1 bag @ Titrate IV .Q0M YOBANI Rx#: [id number] Output: Gastric Drainage 350 Urine 335 1310 90 Other: Voiding Method Indwelling Catheter Indwelling Catheter - Labs CBC & Chem 7: 06/28/18 04:17 06/28/18 04:17 Labs: Abnormal Lab Results - Last 24 Hours (Table) 06/27/18 06/27/18 06/27/18 Range/Units 13:32 18:14 23:19 WBC (3.8-10.6) k/uL RBC (4.30-5.90) m/uL Hgb (13.0-17.5) gm/dL Hct (39.0-53.0) % RDW (11.5-15.5) % Neutrophils # (Manual) (1.3-7.7) k/uL Lymphocytes # (Manual) (1.0-4.8) k/uL Monocytes # (Manual) (0-1.0) k/uL ABG pO2 (83-108) mmHg ABG Total CO2 (19-24) mmol/L Potassium (3.5-5.1) mmol/L Carbon Dioxide (22-30) mmol/L BUN (9-20) mg/dL Creatinine (0.66-1.25) mg/dL Glucose (74-99) mg/dL POC Glucose (mg/dL) 180 H 171 H 148 H (75-99) mg/dL Phosphorus (2.5-4.5) mg/dL 06/28/18 06/28/18 06/28/18 Range/Units 04:17 04:17 06:54 WBC 26.4 H* (3.8-10.6) k/uL RBC 3.38 L (4.30-5.90) m/uL Hgb 9.9 L (13.0-17.5) gm/dL Hct 30.6 L (39.0-53.0) % RDW 20.4 H (11.5-15.5) % Neutrophils # (Manual) 18.40 H (1.3-7.7) k/uL Lymphocytes # (Manual) 0.53 L (1.0-4.8) k/uL Monocytes # (Manual) 7.39 H (0-1.0) k/uL ABG pO2 77 L (83-108) mmHg ABG Total CO2 25 H (19-24) mmol/L Potassium 5.3 H (3.5-5.1) mmol/L Carbon Dioxide 21 L (22-30) mmol/L BUN 47 H (9-20) mg/dL Creatinine 2.61 H (0.66-1.25) mg/dL Glucose 114 H (74-99) mg/dL POC Glucose (mg/dL) (75-99) mg/dL Phosphorus 8.7 H* (2.5-4.5) mg/dL 06/28/18 Range/Units 06:57 WBC (3.8-10.6) k/uL RBC (4.30-5.90) m/uL Hgb (13.0-17.5) gm/dL Hct (39.0-53.0) % RDW (11.5-15.5) % Neutrophils # (Manual) (1.3-7.7) k/uL Lymphocytes # (Manual) (1.0-4.8) k/uL Monocytes # (Manual) (0-1.0) k/uL ABG pO2 (83-108) mmHg ABG Total CO2 (19-24) mmol/L Potassium (3.5-5.1) mmol/L Carbon Dioxide (22-30) mmol/L BUN (9-20) mg/dL Creatinine (0.66-1.25) mg/dL Glucose (74-99) mg/dL POC Glucose (mg/dL) 132 H (75-99) mg/dL Phosphorus (2.5-4.5) mg/dL Microbiology - Last 24 Hours (Table) 06/27/18 02:15 Blood Culture - Preliminary Blood No Growth after 24 hours 06/27/18 19:31 Gram Stain - Preliminary Sputum Sputum Culture - Preliminary Assessment and Plan Plan: Assessment: 1. Acute kidney injury secondary to ischemic ATN secondary to cardiorenal syndrome/hypotension. Renal function worse today with creatinine at 2.61 which is related to diuresis. Patient is nonoliguric. 2. Atrial fibrillation maintained on IV amiodarone. 3. Hypotension maintained on 13 mics of Levophed. Cortisol normal. 4. Systolic CHF with ejection fraction of 35%. 5. Metabolic acidosis secondary to acute kidney injury. 6. Hyperphosphatemia secondary to acute kidney injury. 7. Volume overload. 8. History of nephrolithiasis status post right sided double-J stent placed about 2 weeks ago. Plan: Continue Lasix drip at 10 mL an hour. Add Renvela 800 mg 3 times daily. Wean FiO2 and vasopressors. Follow-up cultures. Continue to monitor renal function and urine output.
[2018-06-28] MEDS: HEPARIN SODIUM,PORCINE 5,000 UNIT/ML 1 ML VIAL SQ SCH ×2 (08:56→20:44)
[2018-06-28] MEDS: PANTOPRAZOLE 40 MG/10 ML VIAL IVP SCH (08:56)
[2018-06-28] MEDS: CHLORHEXIDINE GLUCONATE 15 ML CUP MUCOUS MEM SCH ×2 (08:56→20:44)
[2018-06-28] MEDS: AZITHROMYCIN 500 MG in SODIUM CHLORIDE 0.9% 250 ML IVPB SCH (08:56)
[2018-06-28] MEDS: CISATRACURIUM 200 MG in SODIUM CHLORIDE 0.9% 180 ML IV SCH (08:57)
[2018-06-28] MEDS: INSULIN ASPART 100 UNIT/ML 1 ML 10 ML VIAL SQ SCH ×3 (08:57→17:34)
[2018-06-28] MEDS: cefTRIAXone IN SWFI 1,000 MG/10 ML SYRINGE IVP SCH (09:02)
[2018-06-28 11:01] VITALS: BMI 29.7
--- NOTE | 2018-06-28 11:46 | P.PN ---
Subjective Progress Note Date: 06/28/18 Principal diagnosis: Acute hypoxic respiratory failure secondary to pulmonary edema secondary to systolic congestive heart failure and atrial flutter/A. fib with RVR This is a 78-year-old white male with history of extensive medical history, patient was recently inpatient from 06/14/2018 until 06/17/2018. He was seen by Dr. Lawrence on consultation. Patient is known to have history of A. fib with RVR, presented on the last admission with left flank pain, had previous episodes of pneumonia requiring intubations and mechanical ventilation in [facility]. On the last admission to [facility], patient had right flank pain, no hematuria. He was also found to have atrial fibrillation with RVR, and supposedly he had a previous history of ITP. Normally his platelets are in the range of 50. CT of the chest on the last admission showed some loculated fluid within the minor fissure on the right side , and it was felt it is best to leave it alone. So on the last admission the patient was found to have calculus in the right UPJ with evidence of hydronephrosis, and he was seen by urology on consultation. He underwent cystoscopy and placement of right jJ catheter. Patient clearly had right hydronephrosis secondary to obstructing calculus at the Up junction. On 06/17, the patient signed out AMA, and did not want to remain in the hospital. Upon arrival to the ER yesterday, patient was apparently in quite a bit of respiratory distress. And the ER physician question pneumonia in the right lung , however clearly this was a chronic fluid in the fissure noted previously. Patient was paced on BiPAP, given fluids IV, admitted to the intensive care unit , and upon arrival to the ICU I was notified by the nurse was taking care of the patient that the patient is in severe distress, his respiratory rate is in the high 50s and low 40s. That is in spite of being on BiPAP. As soon as he arrived to the ICU, based on the clinical history, I recommended immediate intubation by [employer], and placement on mechanical ventilation. Patient was given propofol, and he remained extremely agitated, then I recommended Nimbex which was given for a very short.of time than it was later discontinued. When I saw the patient shortly after he arrived to the ICU I have noted that the patient is clearly in atrial flutter. Did not respond to carotid massage, did not respond to 2.5 mg of metoprolol given slowly. Cardiology was consulted, patient was treated with amiodarone. His rate seems to be slower, his chest x- ray clearly showed evidence of pulmonary edema, no evidence of pneumonia. Lasix 80 mg IV push was ordered. Adelaida ward is also on norepinephrine presently at 19 mcg/m. Labs were reviewed CBC is relatively normal, no evidence of leukocytosis. His ABG upon intubation showed a pO2 of 226 pCO2 of 51 pH of 7.26 , hence his ventilator settings were adjusted, placed on assist control rate of 20 tidal volume of 500 the of 5 and FiO2 was decreased down to 50%. Family was noted at bedside, and updated on his overall clinical condition. Discussed the patient with the twisting frame changer on the case. Reevaluated today on 06/28/2018. Patient remains on mechanical ventilation. His ventilator settings are assist control rate of 20 tidal volume of 500 FiO2 of 40 % and PEEP of 5. Remains on 13 g of norepinephrine. Continues to have pulmonary edema as noted on the chest x-ray. Presently on Lasix drip at 10 mg per hour which seems to be helping and improving his overall pulmonary status. WBC count is noted to be elevated today at 26.4 hemoglobin is 9.9. ABG showed a pO2 of 77 pCO2 of 40 pH of 7.38. Basic metabolic profile is relatively normal except for slightly elevated potassium of 5.3, BUN is 47 creatinine is 2.61, his creatinine was 2.40 on admission. Being followed by nephrology. Chest x-ray is consistent with congestive heart failure. Patient remains in atrial fibrillation, presently on amiodarone, rate seems to be better controlled. His ejection fraction was noted to be 20-25% at best. Objective - Vital Signs Vital signs: Vital Signs Temp 97.7 F 06/28/18 08:00 Pulse 79 06/28/18 11:22 Resp 20 06/28/18 11:00 BP 99/61 06/28/18 11:00 Pulse Ox 95 06/28/18 11:00 Intake & Output 06/27/18 06/28/18 06/28/18 18:59 06:59 18:59 Intake Total 4766.676 7580.757 650 Output Total 335 1660 615 Balance 1620.095 -372.243 35 Weight 89.2 kg 86.1 kg 86.1 kg Intake: IV 610 605 550 Azithromycin 500 mg In 250 250 Sodium Chloride 0.9% 250 ml @ 125 mls/hr IVPB DAILY [facility] Rx#:[id number] Dextrose 5% in Water 1, 240 60 000 ml @ 20 mls/hr IV . Q24H Y[facility] Rx#:[id number] Dextrose 5% in Water 100 100 ml @ 618 mls/hr IV .Q10M ONE with Amiodarone 150 mg Rx#:[id number] Furosemide 250 mg In 20 120 50 Sodium Chloride 0.9% 225 ml @ 10 MG/HR 10 mls/hr IVP .Q24H Y[facility] Rx#: [id number] Sodium Chloride 0.9% 1, 425 250 000 ml @ 50 mls/hr IV . Q20H [facility]NAI Rx#:[id number] Intake, IV Titration 1345.095 682.757 100 Amount Amiodarone 450 mg In 259.000 Dextrose 5% in Water 250 ml @ 1 MG/MIN 34.53 mls/ hr IV .Q7H31M [facility] Rx#: [id number] Cisatracurium 200 mg In 4.284 Sodium Chloride 0.9% 180 ml @ 1 MCG/KG/MIN 4.76 mls/hr IV .Q24H YOBANI Rx#: [id number] Norepinephrine 4 mg In 801.376 416.749 Sodium Chloride 0.9% 250 ml @ Titrate IV .Q0M [facility] Rx#:[id number] Propofol 1,000 mg In 280.435 266.008 100 Empty Bag 1 bag @ Titrate IV .Q0M Y[facility] Rx#: [id number] Output: Gastric Drainage 350 Urine 335 1310 615 Other: Voiding Method Indwelling Catheter Indwelling Catheter Indwelling Catheter - Exam Physical Exam revealed a 78-year-old white male on mechanical ventilation, sedated, on propofol, he is also presently on norepinephrine, and amiodarone drip. He is also on Lasix drip Head: Atraumatic, normocephalic. Endotracheal tube and orogastric tube noted to be intact. HEENT:[Neck is supple.] [No neck masses.] [No thyromegaly.] [No JVD.] Chest: [Minimal crackles at the bases, no rhonchi and no wheezes. Cardiac Exam: [Irregular irregular rhythm. Normal S1 and S2, no S3 gallop, no murmur.] Abdomen: [Soft, nontender, no megaly, no rebound, no guarding, normal bowel sounds.] Extremities: [No clubbing, trace edema, no cyanosis.] Neurological Exam: [Could not be assessed, patient is sedated, on propofol drip at present. Patient would have sedation interruption today, and we will assess mental status later. Psychiatric: Could not be addressed. Lymphatics: No lymphadenopathy. - Labs CBC & Chem 7: 06/28/18 04:17 06/28/18 04:17 Labs: Abnormal Lab Results - Last 24 Hours (Table) 06/27/18 06/27/18 06/27/18 Range/Units 13:32 18:14 23:19 WBC (3.8-10.6) k/uL RBC (4.30-5.90) m/uL Hgb (13.0-17.5) gm/dL Hct (39.0-53.0) % RDW (11.5-15.5) % Neutrophils # (Manual) (1.3-7.7) k/uL Lymphocytes # (Manual) (1.0-4.8) k/uL Monocytes # (Manual) (0-1.0) k/uL ABG pO2 (83-108) mmHg ABG Total CO2 (19-24) mmol/L Potassium (3.5-5.1) mmol/L Carbon Dioxide (22-30) mmol/L BUN (9-20) mg/dL Creatinine (0.66-1.25) mg/dL Glucose (74-99) mg/dL POC Glucose (mg/dL) 180 H 171 H 148 H (75-99) mg/dL Phosphorus (2.5-4.5) mg/dL 06/28/18 06/28/18 06/28/18 Range/Units 04:17 04:17 06:54 WBC 26.4 H* (3.8-10.6) k/uL RBC 3.38 L (4.30-5.90) m/uL Hgb 9.9 L (13.0-17.5) gm/dL Hct 30.6 L (39.0-53.0) % RDW 20.4 H (11.5-15.5) % Neutrophils # (Manual) 18.40 H (1.3-7.7) k/uL Lymphocytes # (Manual) 0.53 L (1.0-4.8) k/uL Monocytes # (Manual) 7.39 H (0-1.0) k/uL ABG pO2 77 L (83-108) mmHg ABG Total CO2 25 H (19-24) mmol/L Potassium 5.3 H (3.5-5.1) mmol/L Carbon Dioxide 21 L (22-30) mmol/L BUN 47 H (9-20) mg/dL Creatinine 2.61 H (0.66-1.25) mg/dL Glucose 114 H (74-99) mg/dL POC Glucose (mg/dL) (75-99) mg/dL Phosphorus 8.7 H* (2.5-4.5) mg/dL 06/28/18 Range/Units 06:57 WBC (3.8-10.6) k/uL RBC (4.30-5.90) m/uL Hgb (13.0-17.5) gm/dL Hct (39.0-53.0) % RDW (11.5-15.5) % Neutrophils # (Manual) (1.3-7.7) k/uL Lymphocytes # (Manual) (1.0-4.8) k/uL Monocytes # (Manual) (0-1.0) k/uL ABG pO2 (83-108) mmHg ABG Total CO2 (19-24) mmol/L Potassium (3.5-5.1) mmol/L Carbon Dioxide (22-30) mmol/L BUN (9-20) mg/dL Creatinine (0.66-1.25) mg/dL Glucose (74-99) mg/dL POC Glucose (mg/dL) 132 H (75-99) mg/dL Phosphorus (2.5-4.5) mg/dL Microbiology - Last 24 Hours (Table) 06/27/18 02:15 Blood Culture - Preliminary Blood No Growth after 24 hours 06/27/18 19:31 Gram Stain - Preliminary Sputum Sputum Culture - Preliminary Assessment and Plan Assessment: Impression: 1 acute hypoxic respiratory failure secondary to pulmonary edema secondary to systolic congestive heart failure and atrial flutter/atrial fibrillation with RVR. 2 acute kidney injury secondary to hypotension/acute tubular necrosis. Patient is now on 13 g of levo fed, and it is being titrated to a mean of 65. Patient is being addressed by nephrology. 3 acute volume overload 4 nephrolithiasis, status post right sided double J stent placed about 10 days ago. 5 probably doubt sepsis, I believe the overall presentation is mostly a cardiac presentation, no clinical history to suggest pneumonia. My clinical index of suspicion for pneumonia is extremely low. However his urinalysis is a bit concerning cultures are pending, and the patient is empirically on antibiotics. 6 multiple comorbidities including COPD, chronic dyspnea, obstructive sleep apnea syndrome, ITP, chronic atrial fibrillation, remote history of pneumonia requiring chest tube insertion and parapneumonic effusion back in 2015, degenerative joint disease, chronic back pain, and gout. Recommendation: Continue present supportive care measures, continue ventilatory support, hemodynamic support, nutritional support will be initiated today, GI and DVT prophylaxis, empiric antibiotics, Lasix drip, norepinephrine, amiodarone , will interrupt sedation today for brief period of time and assess mental status, patient is not ready for any form of weaning at this point. Chest x- ray and ventilator settings were all reviewed and adjusted accordingly. We'll continue to follow. Critical care time is 40 minutes. Time with Patient: Greater than 30
[2018-06-28 12:21] LABS: Glucose,Whole Blood 112 mg/dL (75-99)
[2018-06-28] MEDS: SEVELAMER 800 MG TAB PO SCH ×2 (13:30→18:16)
[2018-06-28] MEDS: AMIODARONE 200 MG TAB PO SCH ×2 (15:48→20:44)
[2018-06-28] MEDS: FUROSEMIDE 250 MG in SODIUM CHLORIDE 0.9% 225 ML IVP SCH (15:48)
[2018-06-28 17:35] LABS: Glucose,Whole Blood 98 mg/dL (75-99)
[2018-06-28] MEDS: SODIUM CHLORIDE 0.9% 1,000 ML IV SCH (18:02)
--- NOTE | 2018-06-28 22:08 | PN ---
PROGRESS NOTE DATE OF SERVICE: June 28, 2018. PRESENTING COMPLAINT: Respiratory distress. INTERVAL HISTORY: This patient has multiple medical problems, admitted to the ICU, intubated, being treated for CHF exacerbation, respiratory failure and also renal failure. Also possible UTI. The patient remains on the ventilator with FiO2 15 and a PEEP of 4. The patient also in atrial fibrillation, was switched from IV amiodarone to p.o. amiodarone. Drips include propofol, norepinephrine. The patient is having minimal secretions. REVIEW OF SYSTEMS: Patient intubated. CURRENT MEDICATIONS: Include DuoNeb, p.o. Cordarone, IV azithromycin, IV ceftriaxone, IV Lasix drip, IV Levophed and IV propofol. PHYSICAL EXAMINATION: VITAL SIGNS: Temperature 97.8, pulse 58, respiration 25, blood pressure 84/52, pulse ox 96 percent on ventilator. GENERAL APPEARANCE: Lying in bed intubated. EYES: Pupils equal. Conjunctivae normal. HEENT: External appearance of nose and ears normal. Oral cavity endotracheal tube. NECK: JVD unable to assess. Mass not palpable. RESPIRATORY effort increased. LUNGS: Diminished breath sounds. CARDIOVASCULAR: Heart sounds irregular. No edema. ABDOMEN: Soft, nontender. Liver and spleen not palpable. NEUROLOGICAL: Pupils are equal, reactive. INVESTIGATIONS: White count 26.4, hemoglobin 9.9, potassium 5.3, BUN 47, creatinine 2.61, phosphorus 8.7. ASSESSMENT: 1. Acute on chronic congestive heart failure exacerbation from systolic dysfunction EF 20 to 25%. 2. Secondary pulmonary hypertension secondary to congestive heart failure. 3. Hypertensive heart disease. 4. Possible urinary tract infection. 5. Acute chronic obstructive pulmonary disease exacerbation in an ex-smoker. 6. Acute hypoxic respiratory failure, component of congestive heart failure and chronic obstructive pulmonary disease, currently ventilator assisted. 7. Cardiogenic shock requiring pressure support on vent presentation. 8. Persistent atrial flutter fibrillation, rapid ventricular rate on presentation, now better controlled. 9. Normocytic anemia, could be from underlying chronic kidney disease. 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 11.Possibly mixed metabolic and respiratory acidosis on presentation. 12.Chronic kidney stage 4 possible nephrosclerosis. 13.Hyperkalemia secondary to renal failure. 14.History of kidney stones status post right-sided double-J stent placement about 2 weeks ago. 15.Hyperphosphatemia secondary to acute kidney injury. PLAN: Continue patient on Lasix drip. Renvela was added by Nephrology. The patient remains on the ventilator. Spoke to the daughter at the bedside. Prognosis guarded. We will DC the Eliazar. MMERIKAL / IJN: [id number] /
[2018-06-29] MEDS: ARTIFICIAL TEARS-HYPROMELLOSE DROPS 15 ML BTL BOTH EYES SCH ×2 (00:27→05:26)
[2018-06-29] MEDS: INSULIN ASPART 100 UNIT/ML 1 ML 10 ML VIAL SQ SCH ×4 (00:27→18:09)
[2018-06-29 00:29] LABS: Glucose,Whole Blood 111 mg/dL (75-99)
[2018-06-29] MEDS: PROPOFOL 1,000 MG in EMPTY BAG 1 BAG IV SCH ×2 (02:17→05:52)
[2018-06-29] MEDS: NOREPINEPHRINE 4 MG in SODIUM CHLORIDE 0.9% 250 ML IV SCH (03:37)
[2018-06-29 05:10] LABS: ABG Base Excess 3.7 mmol/L; ABG HCO3 27 mmol/L (21-25); ABG Oxygen Saturation 97.5 % (94-97); ABG PCO2 38 mmHg (35-45); ABG PH 7.47 (7.35-7.45); ABG PO2 81 mmHg (83-108); ABG TCO2 29 mmol/L (19-24)
[2018-06-29 05:36] LABS: Glucose,Whole Blood 121 mg/dL (75-99)
[2018-06-29 05:49] LABS: Anisocytosis Moderate; HCT 29.2 % (39.0-53.0); HGB 9.3 gm/dL (13.0-17.5); MCH 28.7 pg (25.0-35.0); MCHC 31.8 g/dL (31.0-37.0); MCV 90.3 fL (80.0-100.0); Mean Platelet Volume 13.8; Platelet Count 167 k/uL (150-450); RBC 3.24 m/uL (4.30-5.90); RDW 20.8 % (11.5-15.5); WBC 16.4 k/uL (3.8-10.6)
[2018-06-29 06:10] LABS: Phosphorus 6.4 mg/dL (2.5-4.5); Potassium 4.1 mmol/L (3.5-5.1)
[2018-06-29 06:42] LABS: Band Neutrophils % 1 %; Eosinophils # (M) 0.16 k/uL (0-0.7); Lymphocytes # (M) 1.64 k/uL (1.0-4.8); Monocytes # (M) 4.92 k/uL (0-1.0); Neutrophils % (M) 58 %; Nucleated Red Blood Cells 0 /100 WBC (0-0); Total Cells Counted 100
[2018-06-29 06:43] LABS: Large Platelets Present
--- NOTE | 2018-06-29 07:02 | PN ---
PROGRESS NOTE This patient was admitted with acute respiratory distress and patient was in cardiogenic and possible septic shock. The patient is intubated. Patient is currently still on mechanical ventilation and he is on a PEEP of 5. The patient's heart rate is improved with amiodarone drip. His heart rate now is in the range of 60-70 per minute, blood pressure is 100/61 mmHg. The patient's urine output is improved and now is putting out about 100-150 mL/hour. First and second heart sounds are heard. Lungs reveal bilateral diminished air entry. Abdomen is soft. The patient's creatinine is 2.6, BUN is 47. The patient's echocardiogram reveals a severely impaired left ventricular systolic function. Chest x-ray still is suggestive of congestive cardiac failure. FINAL IMPRESSION: This patient is currently being treated for cardiogenic shock. So far the blood cultures are negative. Patient is also covered for any infection with antibiotics. We will continue the patient on Lasix and Levophed drip. The patient's overall prognosis remains guarded. MMODL / IJN: [id number] /
[2018-06-29] MEDS: IPRATROPIUM-ALBUTEROL 3 ML NEB INHALATION SCH ×4 (07:23→19:53)
--- NOTE | 2018-06-29 07:30 | P.PN ---
Subjective Progress Note Date: 06/29/18 Principal diagnosis: Respiratory failure Progress note dated 06/29/2018 This is a 78-year-old male admitted on June 27 with a diagnosis of pneumonia and heart failure. He was intubated on the second remains on mechanical ventilator. He is on the volume assist control mode rate 20 tidal volume 500 FiO2 40% PEEP of 5. His blood gases show pO2 of 81 PaCO2 of 38 and a pH 7.47. He is on a number of drips including propofol at 40 mics per kilogram per minute norepinephrine at 10 mcg/m Lasix at 5 mg an hour 0.9 IV at 50 mL now her vital AF 1.2 at 30 with a goal of 80 mL an hour. The patient's history includes acute hypoxemic respiratory failure secondary to systolic heart failure, atrial fibrillation flutter with RVR, acute kidney injury secondary to ATN Lyme overload status post double-J stent for nephrolithiasis COPD, sleep apnea syndrome, ITP, remote history of pneumonia requiring chest tube insertion and parapneumonic effusion DJD, chronic back pain and gout. We will do a daily interuption of sedation today and a possible weaning trial. I have expressed that to the nurse. Also, blood pressure is reasonable and we might be able to start weaning the norepinephrine a bit. The nurse mentions that the patient's blood pressure has been somewhat labile. Objective - Vital Signs Vital signs: Vital Signs Temp 99.6 F 06/29/18 04:00 Pulse 85 06/29/18 07:00 Resp 23 06/29/18 07:00 BP 109/57 06/29/18 07:00 Pulse Ox 98 06/29/18 07:00 Intake & Output 06/28/18 06/29/18 06/29/18 18:59 06:59 18:59 Intake Total 2423.306 1782.586 Output Total 4169 5579 Balance -580.696 -2012.414 Weight 86.1 kg 82.3 kg Intake: IV 1030 660 Azithromycin 500 mg In 250 Sodium Chloride 0.9% 250 ml @ 125 mls/hr IVPB DAILY [facility] Rx#:[id number] Furosemide 250 mg In 130 60 Sodium Chloride 0.9% 225 ml @ 5 MG/HR 5 mls/hr IVP .Q24H [facility] Rx#:[id number] Sodium Chloride 0.9% 1, 650 600 000 ml @ 50 mls/hr IV . Q20H [facility] Rx#:[id number] Intake, IV Titration 1233.306 772.586 Amount Amiodarone 450 mg In 199.353 Dextrose 5% in Water 250 ml @ 1 MG/MIN 34.53 mls/ hr IV .Q7H31M [facility] Rx#: [id number] Furosemide 250 mg In 235.333 Sodium Chloride 0.9% 225 ml @ 5 MG/HR 5 mls/hr IVP .Q24H [facility] Rx#:[id number] Norepinephrine 4 mg In 500 522.688 Sodium Chloride 0.9% 250 ml @ Titrate IV .Q0M [facility] Rx#:[id number] Propofol 1,000 mg In 298.62 249.898 Empty Bag 1 bag @ Titrate IV .Q0M [facility] Rx#: [id number] Tube Feeding 160 320 Other 30 Output: Urine 3005 5525 Other: Voiding Method Indwelling Catheter Indwelling Catheter - Exam No acute distress, sedated, and intubated with an NG tube in place. HEENT examination is grossly unremarkable. Mucous membranes are moist. Neck supple. Full range of motion. No adenopathy thyromegaly or neck vein distention. Cardiovascular examination reveals regular rhythm rate. S1-S2 normal. No S3 or S4. Soft systolic murmur noted. Heart sounds distant. Lungs reveal diffuse bilateral crackles. Breath sounds equal. No rhonchi. No wheezes. Abdomen soft bowel sounds are heard. No masses or tenderness. Extremities are intact. Mild edema noted. Skin is without rash or lesion. Neurologic examination could not be assessed. - Labs CBC & Chem 7: 06/29/18 04:41 06/29/18 04:41 Labs: Abnormal Lab Results - Last 24 Hours (Table) 06/28/18 06/28/18 06/29/18 Range/Units 06:54 12:20 00:26 WBC (3.8-10.6) k/uL RBC (4.30-5.90) m/uL Hgb (13.0-17.5) gm/dL Hct (39.0-53.0) % RDW (11.5-15.5) % Neutrophils # (Manual) (1.3-7.7) k/uL Monocytes # (Manual) (0-1.0) k/uL ABG pH (7.35-7.45) ABG pO2 77 L (83-108) mmHg ABG HCO3 (21-25) mmol/L ABG Total CO2 25 H (19-24) mmol/L ABG O2 Saturation (94-97) % BUN (9-20) mg/dL Creatinine (0.66-1.25) mg/dL POC Glucose (mg/dL) 112 H 111 H (75-99) mg/dL Phosphorus (2.5-4.5) mg/dL 06/29/18 06/29/18 06/29/18 Range/Units 04:41 04:41 05:05 WBC 16.4 H (3.8-10.6) k/uL RBC 3.24 L (4.30-5.90) m/uL Hgb 9.3 L (13.0-17.5) gm/dL Hct 29.2 L (39.0-53.0) % RDW 20.8 H (11.5-15.5) % Neutrophils # (Manual) 9.60 H (1.3-7.7) k/uL Monocytes # (Manual) 4.92 H (0-1.0) k/uL ABG pH 7.47 H (7.35-7.45) ABG pO2 81 L (83-108) mmHg ABG HCO3 27 H (21-25) mmol/L ABG Total CO2 29 H (19-24) mmol/L ABG O2 Saturation 97.5 H (94-97) % BUN 46 H (9-20) mg/dL Creatinine 2.10 H (0.66-1.25) mg/dL POC Glucose (mg/dL) (75-99) mg/dL Phosphorus 6.4 H (2.5-4.5) mg/dL 06/29/18 Range/Units 05:34 WBC (3.8-10.6) k/uL RBC (4.30-5.90) m/uL Hgb (13.0-17.5) gm/dL Hct (39.0-53.0) % RDW (11.5-15.5) % Neutrophils # (Manual) (1.3-7.7) k/uL Monocytes # (Manual) (0-1.0) k/uL ABG pH (7.35-7.45) ABG pO2 (83-108) mmHg ABG HCO3 (21-25) mmol/L ABG Total CO2 (19-24) mmol/L ABG O2 Saturation (94-97) % BUN (9-20) mg/dL Creatinine (0.66-1.25) mg/dL POC Glucose (mg/dL) 121 H (75-99) mg/dL Phosphorus (2.5-4.5) mg/dL Microbiology - Last 24 Hours (Table) 06/27/18 02:15 Blood Culture - Preliminary Blood No Growth after 48 hours 06/28/18 14:05 Urine Culture - Preliminary Urine,Catheterized 06/27/18 19:31 Gram Stain - Preliminary Sputum Sputum Culture - Preliminary Assessment and Plan Assessment: Assessment Acute hypoxemic respiratory failure requiring intubation and mechanical ventilation from June 27 for systolic heart failure, complicated by atrial flutter/fibrillation with RVR Acute kidney injury with hypotension secondary to acute tubular necrosis Acute volume overload Status post right-sided double-J stent placement recently for any stones Doubt sepsis History of COPD History of sleep apnea syndrome History of ITP. Chronic atrial fibrillation Remote history of pneumonia with parapneumonic effusion requiring chest tube drainage DJD Chronic back pain History of gout Plan: Plan dated 06/29/2018 The patient will have a daily interruption of sedation. We will see if we can wean the patient's norepinephrine. In addition, the patient is being nourished with vital AF. Labs x-rays a medications are all reviewed. Chest x-ray shows diffuse bilateral infiltrates most consistent with heart failure. There are blunting of the costophrenic angles. Thus far, microbiology is negative. White count 16.4 hemoglobin 9.3 hematocrit 29.2 platelet count 167,000. Sodium potassium chloride CO2 all normal. BUN and creatinine were 46 and 2.10 respectively. The patient apparently has been admitted numerous times recent past. CODE STATUS will need to be addressed eventually. He should've already been addressed given his age and multiple comorbidities. Prognosis is guarded. Medical care time 37 minutes Time with Patient: Greater than 30
--- NOTE | 2018-06-29 08:04 | XR ---
EXAMINATION TYPE: XR chest 1V portable DATE OF EXAM: 06/29/2018 COMPARISON: 06/28/2018 INDICATION: Difficulty breathing, tube placement TECHNIQUE: Single frontal view of the chest is obtained. FINDINGS: The heart size is enlarged. The pulmonary vasculature is normal. Mild infiltrates in the right perihilar region. Small bilateral pleural effusions and/or infiltrates at the costophrenic angles may be present. Endotracheal tube tip is 3 cm above the irwin. Nasogastric tube tip is in the left upper quadrant of the abdomen. IMPRESSION: 1. Lines and catheters discussed above. 2. Developing right perihilar infiltrate. Correlate for pneumonia. 3. Mild bibasilar infiltrates and/or minimal effusions. Continued follow-up is recommended.
--- NOTE | 2018-06-29 09:09 | PN ---
PROGRESS NOTE Mr. Barnett is a 78-year-old male with a known history of chronic persistent atrial fibrillation, severe cardiomyopathy, who presented with evidence of progressive dyspnea and respiratory failure requiring mechanical ventilation with evidence of congestive heart failure and evidence of acute kidney injury. He remains intubated, sedated, hemodynamically stable. He had no evidence of ventricle tachycardia. He is maintained on IV Lasix drip as well as IV norepinephrine. PHYSICAL EXAMINATION: Blood pressure 109/57 with a heart rate in the 80s. Lungs decreased air exchange anteriorly. No wheezes. Heart irregular regular S1, S2. No S3 with a systolic murmur. No rub. ABDOMEN: Soft. No organomegaly. EXTREMITIES: No edema. Neurologically he is sedated. LAB DATA: Lab data revealed a hemoglobin of 9.3, white blood cell of 16.4, which is down from 26.4. PH 7.47. BUN and creatinine 46 and 2.1, improving compared with yesterday. Her chest x-ray shows improvement in the congestion. IMPRESSION: 1. Respiratory failure with evidence consistent with congestive heart failure in a patient with known history of severe cardiomyopathy. 2. Persistent atrial fibrillation rate controlled at this time on the amiodarone. 3. Hypertension, improving. 4. Renal failure. RECOMMENDATION: From the cardiac standpoint, we will continue on the IV Lasix. Dr. Jacques will address the issue of his ventilation. Patient needs to be evaluated in regards to the chronic anticoagulation because of the atrial fibrillation. Once he is off his pressors then we will try to re-initiate treatment with the beta perri and depending on his renal function, the decision will be made regarding adding an FEI inhibitor or Entresto. The prognosis remains guarded. MMODL / IJN: [id number] /
[2018-06-29] MEDS: HEPARIN SODIUM,PORCINE 5,000 UNIT/ML 1 ML VIAL SQ SCH ×2 (09:11→20:20)
[2018-06-29] MEDS: PANTOPRAZOLE 40 MG/10 ML VIAL IVP SCH (09:11)
[2018-06-29] MEDS: CHLORHEXIDINE GLUCONATE 15 ML CUP MUCOUS MEM SCH (09:11)
[2018-06-29] MEDS: AZITHROMYCIN 500 MG in SODIUM CHLORIDE 0.9% 250 ML IVPB SCH (09:11)
[2018-06-29] MEDS: cefTRIAXone IN SWFI 1,000 MG/10 ML SYRINGE IVP SCH (09:11)
[2018-06-29] MEDS: SEVELAMER 800 MG TAB PO SCH ×3 (09:14→17:27)
[2018-06-29] MEDS: AMIODARONE 200 MG TAB PO SCH ×3 (09:14→21:47)
[2018-06-29 09:47] LABS: ABG Base Excess 5.4 mmol/L; ABG HCO3 27 mmol/L (21-25); ABG PCO2 29 mmHg (35-45); ABG PH 7.58 (7.35-7.45); ABG PO2 131 mmHg (83-108); ABG TCO2 28 mmol/L (19-24)
[2018-06-29] MEDS: HYDROmorphone 1 MG/ML 1 ML SYRINGE IVP PRN ×3 (11:55→17:15)
[2018-06-29] MEDS: DICLOFENAC SODIUM GEL 100 GM TUBE TOPICAL SCH ×3 (13:17→21:47)
--- NOTE | 2018-06-29 15:45 | PN ---
PROGRESS NOTE Patient is seen for follow up for acute kidney injury. His renal function is currently improving. Patient was extubated this morning. He remains on Levophed, which is currently down to 4 mcg. Patient is also on a Lasix drip and has had good urine output. The patient's creatinine continues to decline. It was 2.6, now down to 2.1 mg/dL. PHYSICAL EXAMINATION: On examination today, blood pressure this morning was 110/60, heart rate about 112-96 per minute. He is afebrile. Examination of the heart: S1, S2. Examination of the lungs: Bilateral breath sounds are heard. Abdomen is soft, nontender. Examination lower extremities shows 1+ edema. ANTISQUEAK FILLER exam is grossly intact. LABS: Shows sodium 141, potassium 4.1, chloride 103, BUN 46, serum creatinine 2.1, phosphorus 6.4, hemoglobin 9.3 g/dL. ASSESSMENT: 1. Acute kidney injury secondary to hypotension, hypoperfusion, nonoliguric, currently improving renal function. I will decrease the Lasix drip and we will follow up on the urine output this evening. If he continues to maintain good urine output , we will cut down the Lasix drip further. Renal function continues to improve at this point. 2. Vent dependent respiratory failure, status post extubation. 3. Hypotension. Levophed has been decreasing. Cortisol level was normal. All cultures are negative thus far. 4. Volume overload, currently improving. 5. Atrial fibrillation with rapid ventricular response. PLAN: Continue with the Lasix drip for now. Decrease dose depending on the urine output later on today. MMODL / IJN: [id number] / [facility]
[2018-06-29] MEDS: SODIUM CHLORIDE 0.9% 1,000 ML IV SCH (17:15)
[2018-06-29] MEDS: FUROSEMIDE 250 MG in SODIUM CHLORIDE 0.9% 225 ML IVP SCH (17:17)
--- NOTE | 2018-06-29 17:31 | XR ---
PROCEDURE: XR cervical spine limited 2V DATE AND TIME: 06/29/2018 4:51 PM CLINICAL INDICATION: PHH Acute neck pain TECHNIQUE: Portable AP and lateral views COMPARISON: None FINDINGS: There is marked limitation in visualization. On the lateral view C1-C4 can be visualized. N o definite acute process. On the AP view, the images are overpenetrated. Orthopedic hardware appears intact. No obvious abnorma lities. IMPRESSION: Markedly limited radiographic study; no acute process identified.
[2018-06-29] MEDS ORDERED: HYDROmorphone 1 MG/ML 1 ML SYRINGE IVP PRN ×2 (19:10)
[2018-06-29 20:41] VITALS: TEMP 99.1
[2018-06-29] MEDS ORDERED: FUROSEMIDE 10 MG/ML 10 ML VIAL IV SCH (21:00)
[2018-06-29 21:47] VITALS: RESP 12
[2018-06-29 23:25] VITALS: BP 105/53; PULSE 105
--- NOTE | 2018-07-01 05:20 | DS ---
DISCHARGE SUMMARY DATE OF ADMISSION: 06/27/2018 DISCHARGED TO HOSPICE: 06/29/2018 FINAL DIAGNOSES: 1. Acute on chronic congestive heart failure exacerbation from systolic dysfunction, ejection fraction 20% to 25%. 2. Secondary pulmonary hypertension secondary to congestive heart failure. 3. Hypertensive heart disease. 4. Possible urinary tract infection. 5. Acute chronic obstructive pulmonary disease exacerbation in an ex-smoker. 6. Acute hypoxic respiratory failure, multifactorial, requiring ventilator assistance. 7. Cardiogenic shock requiring pressor support and vent on presentation. 8. Persistent atrial flutter fibrillation rapid ventricular rate on presentation. 9. Normocytic anemia, could be from chronic kidney disease. 10.Thrombocytopenia probably immune thrombocytopenic purpura. 11.Probably mixed metabolic and respiratory acidosis on presentation. 12.Chronic kidney disease stage 4 possibly from nephrosclerosis. 13.Hyperkalemia secondary to renal failure. 14.History of kidney stones, status post right-sided double-J stent placement about 2 weeks ago. 15.Hyperphosphatemia secondary to acute kidney injury. CONSULTATION: Dr. Sutherland from Nephrology; Dr. Ulrich from Cardiology; Dr. Jacques from Critical Care. HOSPITAL COURSE: who has been in the hospital recently a few times overall worsening presented with multiple medical problems, continued to deteriorate. Dr. Jacques has seen the patient yesterday morning. Nurses called me that the patient's family was looking to talk about end of life care. On examination, patient is lethargic, decreased breath sounds, uncomfortable, decided to discharge the patient to inpatient hospice for symptom control including pain control with Dilaudid. [facility] was called in. DISPOSITION: Inpatient hospice with hospice protocol for symptom control. Discharge planning more than 35 minutes. ADVANCE CARE PLANNING: I had a family meeting in the room with the patient, 2 daughters, the . Initially patient was made DNR and then as we talked further, family reflected the patient's wishes of hospice. I did explain that we will have to stop all the treatment, feeding and let the patient go comfortably and that making a priority. The patient's family stated that is what they wanted especially the reflected that is what the patient's wishes are. Hence, I proceeded to tell the nurse to proceed with hospice care. Increase the dose of Dilaudid, stop other treatment. Total time spent for additional advance care planning in addition to the above was more than 30 minutes. MMODL / IJN: [id number] /
== END 2018-06-29 23:50 | disposition hospice, inpatient (51) | DRG 291 ==
LOC: EC 02:03 → 6ICU 03:14
PROVIDERS: ADMIT Hospitalist; ATTEND Hospitalist
DX: I13.0 Hypertensive heart and chronic kidney disease with heart failure and stage 1 through stage 4 chronic kidney disease, or unspecified chronic kidney disease (principal); J96.01 Acute respiratory failure with hypoxia; I50.23 Acute on chronic systolic (congestive) heart failure; J18.9 Pneumonia, unspecified organism; N17.0 Acute kidney failure with tubular necrosis; R57.0 Cardiogenic shock; N18.4 Chronic kidney disease, stage 4 (severe); I48.92 Unspecified atrial flutter; E87.4 Mixed disorder of acid-base balance; D69.3 Immune thrombocytopenic purpura; J44.1 Chronic obstructive pulmonary disease with (acute) exacerbation; J44.0 Chronic obstructive pulmonary disease with (acute) lower respiratory infection; I42.9 Cardiomyopathy, unspecified; E87.5 Hyperkalemia; I48.2 Chronic atrial fibrillation; I27.29 Other secondary pulmonary hypertension; G47.33 Obstructive sleep apnea (adult) (pediatric); G89.29 Other chronic pain; E83.39 Other disorders of phosphorus metabolism; M54.9 Dorsalgia, unspecified; D64.9 Anemia, unspecified; K21.9 Gastro-esophageal reflux disease without esophagitis; M19.90 Unspecified osteoarthritis, unspecified site; M10.9 Gout, unspecified; F40.240 Claustrophobia; Z87.01 Personal history of pneumonia (recurrent); Z87.442 Personal history of urinary calculi; Z90.49 Acquired absence of other specified parts of digestive tract; Z87.891 Personal history of nicotine dependence; Z82.49 Family history of ischemic heart disease and other diseases of the circulatory system; Z82.3 Family history of stroke; Z79.51 Long term (current) use of inhaled steroids; Z79.899 Other long term (current) drug therapy; Z88.5 Allergy status to narcotic agent; Z88.6 Allergy status to analgesic agent; Z91.041 Radiographic dye allergy status; Z95.5 Presence of coronary angioplasty implant and graft
CPT/HCPCS: 36415; 36600; 71045; 72040; 80048; 80053; 81001; 82533; 82805; 83735; 83880; 84100; 84145; 84484; 85025; 85610; 85730; 87040; 87070; 87086; 87205; 93005; 93306; 94002; 94003; 94640; 94660; 99285

== ENCOUNTER 2018-06-29 23:56 | Inpatient (IN) | payer MEDICAID ==
[2018-06-30] MEDS ORDERED: LORazepam 2 MG/ML INJ IV PRN (00:01)
[2018-06-30] MEDS ORDERED: ATROPINE OPHTH SOLN 1% 5ML BTL SUBLINGUAL PRN (00:01)
[2018-06-30] MEDS ORDERED: MORPHINE SULFATE 4 MG/ML SYRINGE IVP ONE (00:01)
[2018-06-30] MEDS ORDERED: ONDANSETRON 4 MG/2 ML VIAL IVP PRN (00:01)
[2018-06-30] MEDS: MORPHINE SULFATE (100 MG/2 ML) 100 MG in SODIUM CHLORIDE 0.9% 100 ML IV SCH ×2 (00:58→05:16)
[2018-06-30] MEDS: MORPHINE SULFATE 2 MG/ML SYRINGE IV PRN ×2 (01:50→02:29)
--- NOTE | 2018-07-01 05:20 | DS ---
DISCHARGE SUMMARY DATE OF ADMISSION: 06/29/2018 DATE PATIENT : 06/30/2018 FINAL DIAGNOSIS: Chronic obstructive pulmonary disease, that is the cause of . The patient was admitted to inpatient hospice for symptom control, pain control and breathing trouble. The patient was under [facility]. MMODL / IJPrincess: [id number] /
== END 2018-06-30 07:28 | disposition expired | DRG 951 ==
LOC: 6ICU 23:56
PROVIDERS: ADMIT Hospitalist; ATTEND Hospitalist
DX: Z51.5 Encounter for palliative care (principal); I50.23 Acute on chronic systolic (congestive) heart failure; N18.4 Chronic kidney disease, stage 4 (severe); I48.1 Persistent atrial fibrillation; J44.1 Chronic obstructive pulmonary disease with (acute) exacerbation; I13.0 Hypertensive heart and chronic kidney disease with heart failure and stage 1 through stage 4 chronic kidney disease, or unspecified chronic kidney disease; D69.3 Immune thrombocytopenic purpura; I27.20 Pulmonary hypertension, unspecified; I11.0 Hypertensive heart disease with heart failure; D63.1 Anemia in chronic kidney disease; K21.9 Gastro-esophageal reflux disease without esophagitis; M19.91 Primary osteoarthritis, unspecified site; Z79.82 Long term (current) use of aspirin; Z79.51 Long term (current) use of inhaled steroids; Z79.899 Other long term (current) drug therapy; Z87.891 Personal history of nicotine dependence; Z87.442 Personal history of urinary calculi; Z87.01 Personal history of pneumonia (recurrent); Z87.81 Personal history of (healed) traumatic fracture; Z95.5 Presence of coronary angioplasty implant and graft; Z90.49 Acquired absence of other specified parts of digestive tract; Z82.3 Family history of stroke; Z82.49 Family history of ischemic heart disease and other diseases of the circulatory system